=== PATIENT | male | born 1970 | race Caucasian/White ===

== ENCOUNTER 2016-12-14 11:30 | Inpatient (IN) | payer OTHER ==
[2016-12-14 12:08] VITALS: BMI 18.4
--- NOTE | 2016-12-14 16:53 | HP ---
CIWA Score - CIWA Score Nausea/Vomitin Muscle Tremors: 4-Moderate,w/Arms Extend Anxiety: 4-Mod. Anxious/Guarded Agitation: 4-Moderately Restless Paroxysmal Sweats: 2 Orientation: 3-Disoriented Date>2 days Tacttile Disturbances: 0-None Auditory Disturbances: 0-None Visual Disturbances: 0-None Headache: 1-Very Mild CIWA-Ar Total Score: 20 Admission ROS BHS - HPI Chief Complaint: WITHDRAWAL SX PATIENT STATES THAT DOING BETTER WITH VALIUM REGIMEN Allergies/Adverse Reactions: Allergies Allergy/AdvReac Type Severity Reaction Status Date / Time No Known Allergies Allergy Verified 12/14/16 15:56 History of Present Illness: 46 YEARS OLD MALE WITH LONG HISTORY OF ALCOHOL XANAX KLONOPIN DEPENDENCE, HAS COPD AND DEPRESSION IS ADMITTED TO DETOX Exam Limitations: No Limitations - Ebola screening Have you traveled outside of the country in the last 21 days: No Have you had contact with anyone from an Ebola affected area: No Have you been sick,other than usual withdrawal symptoms: No Do you have a fever: No - Review of Systems Constitutional: Chills, Loss of Appetite, Changes in sleep, Unintentional Wgt. Loss EENT: reports: No Symptoms Reported Respiratory: reports: No Symptoms reported Cardiac: reports: No Symptoms Reported GI: reports: Nausea, Poor Appetite, Poor Fluid Intake, Vomiting, Abdominal cramping : reports: No Symptoms Reported Musculoskeletal: reports: Back Pain Integumentary: reports: No Symptoms Reported Neuro: reports: Tremors Endocrine: reports: No Symptoms Reported Hematology: reports: No Symptoms Reported Psychiatric: reports: Judgement Intact, Anxious, Depressed Other Systems: Reviewed and Negative Patient History - Patient Medical History Hx Anemia: No Hx Asthma: No Hx Chronic Obstructive Pulmonary Disease (COPD): Yes Hx Cancer: No Hx Cardiac Disorders: No (HEART ATTACK 2012) Hx Congestive Heart Failure: No Hx Hypertension: No Hx Hypercholesterolemia: No Hx Pacemaker: No HX Cerebrovascular Accident: No Hx Seizures: No Hx Dementia: No Hx Diabetes: No Hx Gastrointestinal Disorders: No Hx Liver Disease: Yes Hx Genitourinary Disorders: No Hx Sexually Transmitted Disorders: No Hx Renal Disease (ESRD): No Hx Thyroid Disease: No Hx Human Immunodeficiency Virus (HIV): No Hx Hepatitis C: Yes Hx Depression: Yes Hx Suicide Attempt: No Hx Bipolar Disorder: No Hx Schizophrenia: No - Patient Surgical History Past Surgical History: Yes Hx Neurologic Surgery: No Hx Cataract Extraction: No Hx Cardiac Surgery: No Hx Lung Surgery: No Hx Breast Surgery: No Hx Breast Biopsy: No Hx Abdominal Surgery: No Hx Appendectomy: No Hx Cholecystectomy: No Hx Genitourinary Surgery: No Hx Orthopedic Surgery: No Other Surgical History: LITHOTRIPSY 2006 Anesthesia Reaction: No - PPD History Previous Implant?: Yes Documented Results: Negative w/proof Implanted On Prior [facility] Admission?: Yes Date: 05/19/16 Results: 0 mm PPD to be Administered?: No - Smoking Cessation Smoking history: Current every day smoker Have you smoked in the past 12 months: Yes Aproximately how many cigarettes per day: 20 Cigars Per Day: 0 Hx Chewing Tobacco Use: No Initiated information on smoking cessation: Yes 'Breaking Loose' booklet given: 12/14/16 - Substance & Tx. History Hx Alcohol Use: Yes Hx Substance Use: Yes Substance Use Type: Alcohol, Cocaine, Marijuana Hx Substance Use Treatment: Yes - Substances Abused Alcohol Route: Oral Frequency: 3-6 times per week Amount used: 1 pint vodka/6pk beer Age of first use: 13 Date of Last Use: 12/12/16 Benzodiazepine (Klonopin) Route: Oral Frequency: Daily Amount used: 4-6mg Age of first use: 36 Date of Last Use: 12/11/16 Cocaine Route: Smoking Frequency: Daily Amount used: 3-4 bags Age of first use: 17 Date of Last Use: 12/12/16 Marijuana/Hashish Route: Smoking Frequency: Daily Amount used: 1-2 joint Age of first use: 10 Date of Last Use: 12/13/16 k2 Route: Smoking Frequency: 1-2 times per week Amount used: 1-2 joints Age of first use: 46 Date of Last Use: 12/12/16 Family Disease History - Family Disease History Family Disease History: Heart Disease: Father (HTN,PR), Mother (HTN,AF), Other: Grandparent (CVA) Admission Physical Exam BHS - Vital Signs Vital Signs: Vital Signs - 24 hr 12/14/16 12:06 Temperature 97.5 F L Pulse Rate 64 Respiratory 18 Rate Blood Pressure 112/59 - Physical General Appearance: Yes: Appropriately Dressed, Moderate Distress, Thin, Tremorous, Irritable, Sweating, Anxious HEENTM: Yes: Hearing grossly Normal, Normal ENT Inspection, Normocephalic, Normal Voice Respiratory: Yes: Chest Non-Tender, No Respiratory Distress, No Accessory Muscle Use, Hyperresonant, Inspiration Neck: Yes: Supple, Trachea in good position Breast: Yes: Breasts Symetrical Cardiology: Yes: Regular Rhythm, S1, S2, Tachycardia Abdominal: Yes: Non Tender, Soft Genitourinary: Yes: Within Normal Limits Back: Yes: Normal Inspection Musculoskeletal: Yes: full range of Motion, Gait Steady, Back pain Extremities: Yes: Normal Range of Motion, Non-Tender, Tremors Neurological: Yes: Alert, Motor Strength 5/5, Normal Response, Depressed Affect Integumentary: Yes: Warm, Moist Lymphatic: Yes: Within Normal Limits - Diagnostic (1) Alcohol dependence with uncomplicated withdrawal Current Visit: Yes Status: Acute (2) Sedative, hypnotic or anxiolytic dependence with withdrawal, uncomplicated Current Visit: Yes Status: Acute (3) COPD (chronic obstructive pulmonary disease) Current Visit: Yes Status: Acute Qualifiers: COPD type: emphysema Emphysema type: panlobular Qualified Code(s ): J43.1 - Panlobular emphysema Comment: SYMBICORT (4) MDD (major depressive disorder) Current Visit: Yes Status: Suspected Qualifiers: Major depression recurrence: recurrent Active/Remission status: in partial remission Qualified Code(s): F33.41 - Major depressive disorder, recurrent, in partial remission (5) Hepatitis C antibody test positive Current Visit: Yes Status: Chronic (6) Methadone maintenance therapy patient Current Visit: Yes Status: Acute Comment: 90 MG VERIFICATION PENDING (7) Weight loss Current Visit: Yes Status: Acute (8) Vomiting Current Visit: Yes Status: Acute Qualifiers: Vomiting type: unspecified Vomiting Intractability: unspecified Nausea presence: with nausea Qualified Code(s): R11.2 - Nausea with vomiting, unspecified Comment: ALCOHOL KLONOPIN WITHDRAWAL RELATED (9) Chronic back pain Current Visit: Yes Status: Chronic Qualifiers: Back pain location: low back pain Back pain laterality: midline Sciatica presence: without sciatica Qualified Code(s): M54.5 - Low back pain; G89.29 - Other chronic pain Cleared for Admission S - Detox or Rehab [facility] Level of Care: Medically Managed Detox Regimen/Protocol: Valium [facility] Breath Alcohol Content Breath Alcohol Content: 0 Urine Drug Screen - Results Drug Screen Negative: No Urine Drug Screen Results: THC-Marijuana, LEXI-Cocaine, OPI-Opiates, MTD- Methadone, OXY-Oxycodone
[2016-12-14] MEDS ORDERED: diphenhydrAMINE HCL 50 MG CAPSULE PO PRN (17:01)
[2016-12-14] MEDS ORDERED: MAGNESIUM CITRATE 300 ML BOTTLE PO PRN (17:01)
[2016-12-14] MEDS ORDERED: MAGNESIUM HYDROX 2400MG/30ML ORAL SUSPENSION 30 ML CUP PO PRN (17:01)
[2016-12-14] MEDS ORDERED: P-EPHED 60MG/TRIPROLIDI 2.5MG TABLET PO PRN (17:01)
[2016-12-14] MEDS ORDERED: ACETAMINOPHEN 325 MG TABLET (FP) PO PRN (17:01)
[2016-12-14] MEDS ORDERED: MAG HYDROX/AL HYDROX/SIMETH 30 ML UNIT-DOSE CUP PO PRN (17:01)
[2016-12-14] MEDS ORDERED: NICOTINE POLACRILEX 4 MG GUM BC PRN (17:01)
[2016-12-14] MEDS ORDERED: LOPERAMIDE HCL 2 MG CAPSULE PO PRN (17:01)
[2016-12-14] MEDS ORDERED: MENTHOL/PHENOL 1 EACH UD MM PRN (17:01)
[2016-12-14] MEDS ORDERED: ALBUTEROL SO4 6.7 GM HFA INHALER IH PRN (17:03)
[2016-12-14] MEDS ORDERED: ONDANSETRON *ODT* 4 MG TABLET SL PRN (17:04)
[2016-12-14] MEDS ORDERED: NAPROXEN 500 MG TABLET (FP) PO PRN (17:05)
[2016-12-14] MEDS ORDERED: diazePAM 5 MG TABLET PO ONE (17:45)
[2016-12-14 19:53] LABS: URINE APPEARANCE CLEAR; URINE BILIRUBIN NEGATIVE (NEGATIVE); URINE BLOOD NEGATIVE (NEGATIVE); URINE COLOR YELLOW; URINE GLUCOSE (UA) NEGATIVE (NEGATIVE); URINE KETONE NEGATIVE (NEGATIVE); URINE LEUK ESTERASE NEGATIVE (NEGATIVE); URINE NITRITE NEGATIVE (NEGATIVE); URINE PROTEIN NEGATIVE (NEGATIVE); URINE UROBILINOGEN 2.0 E.U/dl E.U./dl (0.2-1.0)
[2016-12-14] MEDS: diazePAM 5 MG TABLET PO PRN (20:47)
[2016-12-14] MEDS: THIAMINE HCL 100 MG TABLET (FP) PO SCH (22:14)
[2016-12-14] MEDS: BUDESONIDE/FORMETEROL FUMARATE 80/4.5 mcg INHALER IH SCH (22:15)
[2016-12-14] MEDS: diazePAM 5 MG TABLET PO SCH (22:15)
[2016-12-15] MEDS: guaiFENesin/D-METHORPHAN HB 10 ML UNIT-DOSE CUPS PO PRN ×2 (00:05→23:40)
[2016-12-15] MEDS: diazePAM 5 MG TABLET PO SCH ×3 (05:11→22:52)
[2016-12-15] MEDS: CYCLOBENZAPRINE HCL 10 MG TABLET (FP) PO PRN (06:07)
[2016-12-15] MEDS: diazePAM 5 MG TABLET PO PRN ×2 (06:07→12:47)
[2016-12-15] MEDS ORDERED: METHADONE HCL 10 MG TABLET PO SCH (09:15)
[2016-12-15] MEDS ORDERED: METHADONE HCL 40 MG DISPERSABLE TABLET ONE (09:28)
[2016-12-15] MEDS ORDERED: METHADONE HCL 10 MG TABLET ONE (09:28)
--- NOTE | 2016-12-15 09:49 | CONSULT ---
[facility] Psychiatric Consult - Data Date of interview: 12/15/16 Admission source: [facility] Identifying data: This is 46 years old male with mo psychiatric hospitalization history intoxucated with : Cannabis, K2, Alcohol, Xanax, Cocaine and Nicotine, currently on Methadone 90mg/day Substance Abuse History: Smoking history: Current every day smoker. Have you smoked in the past 12 months: Yes. Aproximately how many cigarettes per day: 20. Cigars Per Day: 0. Hx Chewing Tobacco Use: No. Initiated information on smoking cessation: Yes. 'Breaking Loose' booklet given: 12/14/16. - Substance & Tx. History. Hx Alcohol Use: Yes. Hx Substance Use: Yes. Substance Use Type : Alcohol, Cocaine, Marijuana. Hx Substance Use Treatment: Yes. - Substances Abused. Alcohol. Route: Oral. Frequency: 3-6 times per week. Amount used : 1 pint vodka/6pk beer. Age of first use: 13. Date of Last Use: 12/12/16. * * Benzodiazepine (Klonopin). Route: Oral. Frequency: Daily. Amount used: 4- 6mg. Age of first use: 36. Date of Last Use: 12/11/16. Cocaine. Route: Smoking. Frequency: Daily. Amount used: 3-4 bags. Age of first use: 17. Date of Last Use: 12/12/16. Marijuana/Hashish. Route: Smoking. Frequency: Daily. Amount used: 1-2 joint. Age of first use: 10. Date of Last Use: . k2. Route: Smoking. Frequency: 1-2 times per week. Amount used: 1-2 joints. Age of first use: 46. Date of Last Use: 12/12/16 Medical History: COPD, Weight loss, LBP, HepC+, MMTP 90 per day, highest history - 130mg per day Psychiatric History: Patient reports history of PTSD, MDD, Reportsa recent psychiatric admission on 2016 at [facility], , reports taking prior to admission: Abilify 10mg poqd. Wellbutrin 100mg poqd. Celexa 20mg poqd. Ambien 5mg po qhs Physical/Sexual Abuse/Trauma History: Denies Additional Comment: Abilify 10mg poqd. Wellbutrin 100mg poqd. Celexa 20mg poqd. Ambien 5mg po qhs Mental Status Exam - Mental Status Exam Alert and Oriented to: Person Cognitive Function: Fair Patient Appearance: Unkempt Mood: Sad Affect: Mood Congruent Patient Behavior: Cooperative Speech Pattern: Appropriate Voice Loudness: Mildly Soft/Quiet Thought Process: Goal Oriented Thought Disorder: Being Controlled Hallucinations: Denies Suicidal Ideation: Denies Homicidal Ideation: Denies Insight/Judgement: Fair Sleep: Difficulty falling asleep Appetite: Weight loss Muscle strength/Tone: Normal Gait/Station: Shuffling Additional Comments: Abilify 10mg poqd. Wellbutrin 100mg poqd. Celexa 20mg poqd. Ambien 5mg po qhs Psychiatric Findings - Problem List ([place] 1, 2,3) (1) Alcohol dependence with uncomplicated withdrawal Current Visit: Yes Status: Acute (2) Methadone maintenance therapy patient Current Visit: Yes Status: Acute Comment: 90 MG VERIFICATION PENDING (3) Sedative, hypnotic or anxiolytic dependence with withdrawal, uncomplicated Current Visit: Yes Status: Acute (4) Weight loss Current Visit: Yes Status: Acute (5) MDD (major depressive disorder) Current Visit: Yes Status: Suspected Qualifiers: Major depression recurrence: recurrent Active/Remission status: in partial remission Qualified Code(s): F33.41 - Major depressive disorder, recurrent, in partial remission (6) Alcohol dependence Current Visit: No Status: Active (7) Opioid dependence Current Visit: No Status: Active (8) Sedative dependence Current Visit: No Status: Active (9) Cannabis dependence Current Visit: No Status: Acute (10) Cocaine dependence Current Visit: No Status: Acute Qualifiers: Substance use status: uncomplicated Qualified Code(s): F14.20 - Cocaine dependence, uncomplicated (11) Klonopin use disorder, mild, abuse Current Visit: No Status: Acute Comment: VALIUM DETOX (12) Nicotine dependence Current Visit: No Status: Acute (13) Opioid dependence on agonist therapy Current Visit: No Status: Acute (14) Post traumatic stress disorder (PTSD) Current Visit: No Status: Acute (15) Substance induced mood disorder Current Visit: No Status: Acute - Initial Treatment Plan Initial Treatment Plan: Abilify 10mg poqd. Wellbutrin 100mg poqd. Celexa 20mg poqd. Ambien 5mg po qhs
[2016-12-15 10:01] LABS: MCH 26.6 pg (25.7-33.7); MCHC 31.8 g/dl (32.0-35.9); MEAN CELL VOLUME 83.6 fl (80-96); MEAN PLT VOLUME 9.4 fl (7.5-11.1); PLATELET COUNT 194 K/MM3 (134-434); RDW 15.9 % (11.9-15.9); WHITE BLOOD COUNT 11.9 K/mm3 (4.0-10.0)
[2016-12-15 10:49] LABS: ALBUMIN 3.8 g/dl (3.4-5.0); ALK PHOS 107 U/L (45-117); ANION GAP 7 (8-16); BILIRUBIN,TOTAL 0.8 mg/dL (0.2-1.0); CALCIUM 8.6 mg/dL (8.5-10.1); CO2 27 mmol/L (21-32); CREATININE 0.7 mg/dL (0.7-1.3); GLUCOSE,RANDOM 98 mg/dL (74-106); SGOT/AST 39 U/L (15-37); SGPT/ALT 45 U/L (12-78); TOT PROT 6.7 g/dl (6.4-8.2)
--- NOTE | 2016-12-15 11:14 | PN ---
S CIWA - CIWA Score Nausea/Vomitin Muscle Tremors: 4-Moderate,w/Arms Extend Anxiety: 4-Mod. Anxious/Guarded Agitation: 4-Moderately Restless Paroxysmal Sweats: 3 Orientation: 0-Oriented Tacttile Disturbances: 1-Very Mild Itch/Numbness Auditory Disturbances: 0-None Visual Disturbances: 0-None Headache: 0-None Present CIWA-Ar Total Score: 18 BHS Progress Note (SOAP) Subjective: Anxiety,tremors,sweating,interrupted sleep,restless Objective: 12/15/16 11:12 Vital Signs - 8 hr 12/15/16 12/15/16 12/15/16 03:48 06:43 09:43 Temperature 96.2 F L 96.4 F L Pulse Rate 64 81 Respiratory 18 16 20 Rate Blood Pressure 112/71 108/69 Laboratory Tests 12/14/16 12/15/16 19:00 06:10 WBC 11.9 H D RBC 3.96 L Hgb 10.5 L Hct 33.1 L MCV 83.6 MCHC 31.8 L RDW 15.9 D Plt Count 194 MPV 9.4 D Urine Color Yellow Urine Appearance Clear Urine pH 6.0 Ur Specific [place] 1.021 Urine Protein Negative Urine Glucose (UA) Negative Urine Ketones Negative Urine Blood Negative Urine Nitrite Negative Urine Bilirubin Negative Urine Urobilinogen 2.0 e.u/dl Ur Leukocyte Esterase Negative labs noted Assessment: 12/15/16 11:14 Withdrawal sx. Plan: Continue detox
[2016-12-15] MEDS: LIDOCAINE 5% TOPICAL PATCH TP SCH (11:30)
[2016-12-15] MEDS ORDERED: PNEUMOCOCCAL 23 VACCINE 0.5 ML VIAL IM ONE (12:00)
[2016-12-15] MEDS ORDERED: INFLUENZA VACCINE 45 MCG/0.5 ML (MDV 16-17) IM ONE (12:00)
[2016-12-15] MEDS ORDERED: PNEUMOC 13-VAL CONJ-DIP CRM/PF 0.5 ML DISP.SYRIN IM ONE (12:00)
[2016-12-15 12:12] LABS: HIV 1 & 2 AB NEGATIVE; HIV 1 AGp24 NEGATIVE
[2016-12-15] MEDS: METHADONE 80 MG, METHADONE 10 MG PO SCH (12:39)
--- NOTE | 2016-12-15 15:07 | EKG ---
Test Reason : Blood Pressure : / mmHG Vent. Rate : 062 BPM Atrial Rate : 062 BPM P-R Int : 158 ms QRS Dur : 094 ms QT Int : 410 ms P-R-T Axes : 068 085 072 degrees QTc Int : 416 ms NORMAL SINUS RHYTHM NORMAL ECG NO PREVIOUS ECGS AVAILABLE Confirmed by ANAID WHEELER MD ([id number]) on 12/15/2016 3:07:10 PM Referred By: Confirmed By:ANAID WHEELER MD
[2016-12-15] MEDS: NICOTINE 21 MG/24 HOURS TOPICAL PATCH TD SCH (15:15)
[2016-12-15] MEDS: PRENATAL VITAMINS W/ FOLIC ACID TABLET (FP) PO SCH (15:16)
[2016-12-15] MEDS: buPROPion HCL 100 MG TABLET PO SCH (15:16)
[2016-12-15] MEDS: BUDESONIDE/FORMETEROL FUMARATE 80/4.5 mcg INHALER IH SCH ×2 (15:16→22:52)
[2016-12-15] MEDS: CITALOPRAM HYDROBROMIDE 20 MG TABLET (FP) PO SCH (15:19)
[2016-12-15] MEDS: ARIPiprazole 10 MG TABLET PO SCH (15:19)
[2016-12-15] MEDS: THIAMINE HCL 100 MG TABLET (FP) PO SCH (22:52)
[2016-12-15] MEDS: ZOLPIDEM TARTRATE 5 MG TABLET PO PRN (22:53)
[2016-12-16] MEDS ORDERED: METHADONE HCL 40 MG DISPERSABLE TABLET ONE (03:40)
[2016-12-16] MEDS ORDERED: METHADONE HCL 10 MG TABLET ONE (03:40)
[2016-12-16] MEDS: CYCLOBENZAPRINE HCL 10 MG TABLET (FP) PO PRN (06:00)
[2016-12-16] MEDS: METHADONE 80 MG, METHADONE 10 MG PO SCH (06:00)
[2016-12-16] MEDS: CITALOPRAM HYDROBROMIDE 20 MG TABLET (FP) PO SCH (10:59)
[2016-12-16] MEDS: diazePAM 5 MG TABLET PO SCH ×2 (10:59→22:31)
[2016-12-16] MEDS: PRENATAL VITAMINS W/ FOLIC ACID TABLET (FP) PO SCH (10:59)
[2016-12-16] MEDS: BUDESONIDE/FORMETEROL FUMARATE 80/4.5 mcg INHALER IH SCH ×2 (10:59→23:00)
[2016-12-16] MEDS: ARIPiprazole 10 MG TABLET PO SCH (11:00)
[2016-12-16] MEDS: LIDOCAINE 5% TOPICAL PATCH TP SCH (11:01)
[2016-12-16] MEDS: NICOTINE 21 MG/24 HOURS TOPICAL PATCH TD SCH (11:02)
[2016-12-16] MEDS: buPROPion HCL 100 MG TABLET PO SCH (11:03)
--- NOTE | 2016-12-16 11:18 | PN ---
[facility] CIWA - CIWA Score Nausea/Vomitin-No Nausea/No Vomiting Muscle Tremors: 3 Anxiety: 3 Agitation: 4-Moderately Restless Paroxysmal Sweats: 3 Orientation: 0-Oriented Tacttile Disturbances: 0-None Auditory Disturbances: 0-None Visual Disturbances: 0-None Headache: 0-None Present CIWA-Ar Total Score: 13 S Progress Note (SOAP) Subjective: Anxiety,tremors,sweating,interrupted sleep,restless Objective: 12/16/16 11:16 Vital Signs - 8 hr 12/16/16 12/16/16 12/16/16 03:30 06:34 10:39 Temperature 96.5 F L 95.5 F L Pulse Rate 68 62 Respiratory 18 18 16 Rate Blood Pressure 104/69 104/75 Laboratory Last Values WBC 11.9 K/mm3 (4.0-10.0) H D 12/15/16 06:10 RBC 3.96 M/mm3 (4.00-5.60) L 12/15/16 06:10 Hgb 10.5 GM/dL (11.7-16.9) L 12/15/16 06:10 Hct 33.1 % (35.4-49) L 12/15/16 06:10 MCV 83.6 fl (80-96) 12/15/16 06:10 MCHC 31.8 g/dl (32.0-35.9) L 12/15/16 06:10 RDW 15.9 % (11.9-15.9) D 12/15/16 06:10 Plt Count 194 K/MM3 (134-434) 12/15/16 06:10 MPV 9.4 fl (7.5-11.1) D 12/15/16 06:10 Sodium 138 mmol/L (136-145) 12/15/16 06:10 Potassium 4.2 mmol/L (3.5-5.1) 12/15/16 06:10 Chloride 104 mmol/L (98-107) 12/15/16 06:10 Carbon Dioxide 27 mmol/L (21-32) 12/15/16 06:10 Anion Gap 7 (8-16) L 12/15/16 06:10 BUN 14 mg/dL (7-18) 12/15/16 06:10 Creatinine 0.7 mg/dL (0.7-1.3) 12/15/16 06:10 Creat Clearance w eGFR > 60 (>60) 12/15/16 06:10 Random Glucose 98 mg/dL (74-106) 12/15/16 06:10 Calcium 8.6 mg/dL (8.5-10.1) 12/15/16 06:10 Total Bilirubin 0.8 mg/dL (0.2-1.0) D 12/15/16 06:10 AST 39 U/L (15-37) H D 12/15/16 06:10 ALT 45 U/L (12-78) D 12/15/16 06:10 Alkaline Phosphatase 107 U/L (45-117) 12/15/16 06:10 Total Protein 6.7 g/dl (6.4-8.2) 12/15/16 06:10 Albumin 3.8 g/dl (3.4-5.0) 12/15/16 06:10 Urine Color Yellow 12/14/16 19:00 Urine Appearance Clear 12/14/16 19:00 Urine pH 6.0 (5.0-8.0) 12/14/16 19:00 Ur Specific [place] 1.021 (1.001-1.035) 12/14/16 19:00 Urine Protein Negative (NEGATIVE) 12/14/16 19:00 Urine Glucose (UA) Negative (NEGATIVE) 12/14/16 19:00 Urine Ketones Negative (NEGATIVE) 12/14/16 19:00 Urine Blood Negative (NEGATIVE) 12/14/16 19:00 Urine Nitrite Negative (NEGATIVE) 12/14/16 19:00 Urine Bilirubin Negative (NEGATIVE) 12/14/16 19:00 Urine Urobilinogen 2.0 e.u/dl E.U./dl (0.2-1.0) 12/14/16 19:00 Ur Leukocyte Esterase Negative (NEGATIVE) 12/14/16 19:00 RPR Titer Nonreactive (NONREACTIVE) 12/15/16 06:10 HIV 1&2 Antibody Screen Negative 12/15/16 06:10 HIV P24 Antigen Negative 12/15/16 06:10 labs noted Assessment: 12/16/16 11:17 Withdrawal sx. Plan: Continue detox
[2016-12-16] MEDS: diazePAM 5 MG TABLET PO PRN (17:11)
[2016-12-16] MEDS: THIAMINE HCL 100 MG TABLET (FP) PO SCH (22:31)
[2016-12-16] MEDS: ZOLPIDEM TARTRATE 5 MG TABLET PO PRN (22:33)
[2016-12-17] MEDS ORDERED: METHADONE HCL 10 MG TABLET ONE (05:33)
[2016-12-17] MEDS ORDERED: METHADONE HCL 40 MG DISPERSABLE TABLET ONE (05:34)
[2016-12-17] MEDS: METHADONE 80 MG, METHADONE 10 MG PO SCH (05:44)
[2016-12-17] MEDS: diazePAM 5 MG TABLET PO PRN ×2 (08:46→14:46)
[2016-12-17] MEDS: BUDESONIDE/FORMETEROL FUMARATE 80/4.5 mcg INHALER IH SCH ×2 (10:39→22:35)
[2016-12-17] MEDS: PRENATAL VITAMINS W/ FOLIC ACID TABLET (FP) PO SCH (10:39)
[2016-12-17] MEDS: CITALOPRAM HYDROBROMIDE 20 MG TABLET (FP) PO SCH (10:40)
[2016-12-17] MEDS: diazePAM 5 MG TABLET PO SCH ×2 (10:40→22:35)
[2016-12-17] MEDS: ARIPiprazole 10 MG TABLET PO SCH (10:40)
[2016-12-17] MEDS: buPROPion HCL 100 MG TABLET PO SCH (10:40)
[2016-12-17] MEDS: LIDOCAINE 5% TOPICAL PATCH TP SCH (10:41)
[2016-12-17] MEDS: NICOTINE 21 MG/24 HOURS TOPICAL PATCH TD SCH (10:41)
--- NOTE | 2016-12-17 12:00 | PN ---
S Progress Note (SOAP) Subjective: Restlessness, interrupted sleep, anxiety, diarrhea, Objective: 12/17/16 12:00 Vital Signs Temperature 98.3 F 12/17/16 09:53 Pulse Rate 82 12/17/16 09:53 Respiratory Rate 18 12/17/16 09:53 Blood Pressure 117/68 12/17/16 09:53 O2 Sat by Pulse Oximetry (%) Laboratory Last Values WBC 11.9 K/mm3 (4.0-10.0) H D 12/15/16 06:10 RBC 3.96 M/mm3 (4.00-5.60) L 12/15/16 06:10 Hgb 10.5 GM/dL (11.7-16.9) L 12/15/16 06:10 Hct 33.1 % (35.4-49) L 12/15/16 06:10 MCV 83.6 fl (80-96) 12/15/16 06:10 MCHC 31.8 g/dl (32.0-35.9) L 12/15/16 06:10 RDW 15.9 % (11.9-15.9) D 12/15/16 06:10 Plt Count 194 K/MM3 (134-434) 12/15/16 06:10 MPV 9.4 fl (7.5-11.1) D 12/15/16 06:10 Sodium 138 mmol/L (136-145) 12/15/16 06:10 Potassium 4.2 mmol/L (3.5-5.1) 12/15/16 06:10 Chloride 104 mmol/L (98-107) 12/15/16 06:10 Carbon Dioxide 27 mmol/L (21-32) 12/15/16 06:10 Anion Gap 7 (8-16) L 12/15/16 06:10 BUN 14 mg/dL (7-18) 12/15/16 06:10 Creatinine 0.7 mg/dL (0.7-1.3) 12/15/16 06:10 Creat Clearance w eGFR > 60 (>60) 12/15/16 06:10 Random Glucose 98 mg/dL (74-106) 12/15/16 06:10 Calcium 8.6 mg/dL (8.5-10.1) 12/15/16 06:10 Total Bilirubin 0.8 mg/dL (0.2-1.0) D 12/15/16 06:10 AST 39 U/L (15-37) H D 12/15/16 06:10 ALT 45 U/L (12-78) D 12/15/16 06:10 Alkaline Phosphatase 107 U/L (45-117) 12/15/16 06:10 Total Protein 6.7 g/dl (6.4-8.2) 12/15/16 06:10 Albumin 3.8 g/dl (3.4-5.0) 12/15/16 06:10 Urine Color Yellow 12/14/16 19:00 Urine Appearance Clear 12/14/16 19:00 Urine pH 6.0 (5.0-8.0) 12/14/16 19:00 Ur Specific [place] 1.021 (1.001-1.035) 12/14/16 19:00 Urine Protein Negative (NEGATIVE) 12/14/16 19:00 Urine Glucose (UA) Negative (NEGATIVE) 12/14/16 19:00 Urine Ketones Negative (NEGATIVE) 12/14/16 19:00 Urine Blood Negative (NEGATIVE) 12/14/16 19:00 Urine Nitrite Negative (NEGATIVE) 12/14/16 19:00 Urine Bilirubin Negative (NEGATIVE) 12/14/16 19:00 Urine Urobilinogen 2.0 e.u/dl E.U./dl (0.2-1.0) 12/14/16 19:00 Ur Leukocyte Esterase Negative (NEGATIVE) 12/14/16 19:00 RPR Titer Nonreactive (NONREACTIVE) 12/15/16 06:10 HIV 1&2 Antibody Screen Negative 12/15/16 06:10 HIV P24 Antigen Negative 12/15/16 06:10 labs noted Assessment: withdrawal symptoms Plan: Encouraged patient to utilize prns Continue Detox
[2016-12-17] MEDS ORDERED: hydrOXYzine PAMOATE 50 MG CAPSULE (FP) PO PRN (18:12)
[2016-12-17] MEDS: THIAMINE HCL 100 MG TABLET (FP) PO SCH (22:35)
[2016-12-17] MEDS: ZOLPIDEM TARTRATE 5 MG TABLET PO PRN (22:35)
[2016-12-18] MEDS ORDERED: METHADONE HCL 40 MG DISPERSABLE TABLET ONE (02:32)
[2016-12-18] MEDS ORDERED: METHADONE HCL 10 MG TABLET ONE (02:32)
[2016-12-18] MEDS: METHADONE 80 MG, METHADONE 10 MG PO SCH (06:04)
[2016-12-18] MEDS: CYCLOBENZAPRINE HCL 10 MG TABLET (FP) PO PRN (06:04)
[2016-12-18] MEDS: buPROPion HCL 100 MG TABLET PO SCH (09:15)
[2016-12-18] MEDS: CITALOPRAM HYDROBROMIDE 20 MG TABLET (FP) PO SCH (09:15)
[2016-12-18] MEDS: NICOTINE 21 MG/24 HOURS TOPICAL PATCH TD SCH (09:15)
[2016-12-18] MEDS: BUDESONIDE/FORMETEROL FUMARATE 80/4.5 mcg INHALER IH SCH (09:15)
[2016-12-18] MEDS: PRENATAL VITAMINS W/ FOLIC ACID TABLET (FP) PO SCH (09:15)
[2016-12-18] MEDS: ARIPiprazole 10 MG TABLET PO SCH (09:16)
[2016-12-18] MEDS: LIDOCAINE 5% TOPICAL PATCH TP SCH (09:17)
[2016-12-18] MEDS ORDERED: diazePAM 5 MG TABLET PO SCH (10:00)
[2016-12-18 10:56] VITALS: TEMP 98.8
[2016-12-18 13:26] VITALS: BP 109/70; PULSE 88
--- NOTE | 2016-12-18 16:24 | DS ---
[facility] Detox Discharge Summary Admission Date: 12/14/16 Discharge Date: 12/18/16 - History Present History: Alcohol Dependence, Cannabis Dependence, Cocaine Dependence, Sedative Dependence Pertinent Past History: COPD DC Hepatitis C - Physical Exam Results Vital Signs: Vital Signs Temperature 98.8 F 12/18/16 10:55 Pulse Rate 88 12/18/16 13:26 Respiratory Rate 18 12/18/16 13:26 Blood Pressure 109/70 12/18/16 13:26 O2 Sat by Pulse Oximetry (%) Pertinent Admission Physical Exam Findings: Withdrawal symptoms Laboratory Tests 12/14/16 12/15/16 12/15/16 19:00 06:10 06:10 WBC 11.9 H D RBC 3.96 L Hgb 10.5 L Hct 33.1 L MCV 83.6 MCHC 31.8 L RDW 15.9 D Plt Count 194 MPV 9.4 D Sodium Potassium Chloride Carbon Dioxide Anion Gap BUN Creatinine Creat Clearance w eGFR Random Glucose Calcium Total Bilirubin AST ALT Alkaline Phosphatase Total Protein Albumin Urine Color Yellow Urine Appearance Clear Urine pH 6.0 Ur Specific [place] 1.021 Urine Protein Negative Urine Glucose (UA) Negative Urine Ketones Negative Urine Blood Negative Urine Nitrite Negative Urine Bilirubin Negative Urine Urobilinogen 2.0 e.u/dl Ur Leukocyte Esterase Negative RPR Titer HIV 1&2 Antibody Screen Negative HIV P24 Antigen Negative 12/15/16 12/15/16 06:10 06:10 WBC RBC Hgb Hct MCV MCHC RDW Plt Count MPV Sodium 138 Potassium 4.2 Chloride 104 Carbon Dioxide 27 Anion Gap 7 L BUN 14 Creatinine 0.7 Creat Clearance w eGFR > 60 Random Glucose 98 Calcium 8.6 Total Bilirubin 0.8 D AST 39 H D ALT 45 D Alkaline Phosphatase 107 Total Protein 6.7 Albumin 3.8 Urine Color Urine Appearance Urine pH Ur Specific [place] Urine Protein Urine Glucose (UA) Urine Ketones Urine Blood Urine Nitrite Urine Bilirubin Urine Urobilinogen Ur Leukocyte Esterase RPR Titer Nonreactive HIV 1&2 Antibody Screen HIV P24 Antigen Labs noted - Treatment Hospital Course: Detox Protocol Followed, Detoxed Safely, Responded well, Discharged Condition Good - Medication Discharge Medications: Ambulatory Orders Albuterol Sulfate Inhaler - [Ventolin Hfa Inhaler -] 2 inh PO Q4H PRN 12/14/16 Naproxen [Naprosyn -] 500 mg PO BID 12/14/16 Zolpidem Tartrate [Ambien] 5 mg PO HS PRN 12/14/16 Aripiprazole [Abilify -] 10 mg PO DAILY #30 tablet 12/15/16 Bupropion HCl [Wellbutrin -] 100 mg PO DAILY #30 tablet 12/15/16 Citalopram Hydrobromide [Celexa -] 20 mg PO DAILY #30 tablet 12/15/16 SYMBICORT 80/4.5mcg - 2 inhaler IH Q4H PRN 12/18/16 - Diagnosis (1) Alcohol dependence with uncomplicated withdrawal Status: Acute (2) COPD (chronic obstructive pulmonary disease) Status: Chronic Qualifiers: COPD type: emphysema Emphysema type: panlobular Qualified Code(s ): J43.1 - Panlobular emphysema (3) Cannabis dependence Status: Chronic (4) Cocaine dependence Status: Chronic Qualifiers: Substance use status: uncomplicated Qualified Code(s): F14.20 - Cocaine dependence, uncomplicated (5) Sedative, hypnotic or anxiolytic dependence with withdrawal, uncomplicated Status: Acute (6) Hepatitis C antibody test positive Status: Chronic (7) Myocardial infarct, old Status: Chronic (8) Nicotine dependence Status: Chronic - AMA Did Patient Leave Against Medical Advice: No
== END 2016-12-18 12:47 | disposition other institution (70) | DRG 773 ==
LOC: YASAS 11:30 → Y3N 17:39
PROVIDERS: ADMIT Internal Medicine; ATTEND Internal Medicine
PROC: HZ2ZZZZ Detoxification Services for Substance Abuse Treatment (ICD-10-PCS; principal; 2016-12-18)
DX: F11.20 Opioid dependence, uncomplicated (principal); F13.230 Sedative, hypnotic or anxiolytic dependence with withdrawal, uncomplicated; F10.230 Alcohol dependence with withdrawal, uncomplicated; F14.20 Cocaine dependence, uncomplicated; F12.20 Cannabis dependence, uncomplicated; F17.210 Nicotine dependence, cigarettes, uncomplicated; F33.41 Major depressive disorder, recurrent, in partial remission; F43.10 Post-traumatic stress disorder, unspecified; J43.1 Panlobular emphysema; B18.2 Chronic viral hepatitis C; M54.5 Low back pain; R63.4 Abnormal weight loss; Z68.1 Body mass index [BMI] 19.9 or less, adult; I25.2 Old myocardial infarction
CPT/HCPCS: 36415; 80053; 81003; 85027; 86593; 87389; 90732; 93005; 93010; G0009

== ENCOUNTER 2016-12-18 13:25 | Inpatient (IN) | payer OTHER ==
[2016-12-18 13:49] VITALS: BMI 19.6
--- NOTE | 2016-12-18 13:57 | HP ---
[facility] Rehab Assess/Revision - Admission History Ad[facility] to Rehab [facility] Date of Admission to Rehab: 12/18/16 - Vital signs Vital Signs: Vital Signs Period Temp Pulse Resp BP Sys/Souza Pulse Ox Last 24 Hr 97.3 F-97.3 F 84-84 18-18 135-135/76-76 - Findings Detox History & Physical reviewed: Yes Concur with findings: Yes
[2016-12-18] MEDS ORDERED: P-EPHED 60MG/TRIPROLIDI 2.5MG TABLET PO PRN (15:09)
[2016-12-18] MEDS ORDERED: IBUPROFEN 400 MG TABLET (FP) PO PRN (15:09)
[2016-12-18] MEDS ORDERED: guaiFENesin/D-METHORPHAN HB 10 ML UNIT-DOSE CUPS PO PRN (15:09)
[2016-12-18] MEDS ORDERED: MAGNESIUM CITRATE 300 ML BOTTLE PO PRN (15:09)
[2016-12-18] MEDS ORDERED: ACETAMINOPHEN 325 MG TABLET (FP) PO PRN (15:09)
[2016-12-18] MEDS ORDERED: MAG HYDROX/AL HYDROX/SIMETH 30 ML UNIT-DOSE CUP PO PRN (15:09)
[2016-12-18] MEDS ORDERED: MENTHOL/PHENOL 1 EACH UD MM PRN (15:09)
[2016-12-18] MEDS ORDERED: LOPERAMIDE HCL 2 MG CAPSULE PO PRN (15:09)
[2016-12-18] MEDS ORDERED: MAGNESIUM HYDROX 2400MG/30ML ORAL SUSPENSION 30 ML CUP PO PRN (15:09)
[2016-12-18] MEDS ORDERED: NICOTINE POLACRILEX 2 MG GUM BUC PRN (15:09)
[2016-12-18] MEDS: BUDESONIDE/FORMETEROL FUMARATE 80/4.5 mcg INHALER IH SCH (21:12)
[2016-12-18] MEDS: THIAMINE HCL 100 MG TABLET (FP) PO SCH (21:13)
[2016-12-18] MEDS: diphenhydrAMINE HCL 50 MG CAPSULE PO PRN (21:13)
[2016-12-19] MEDS ORDERED: METHADONE HCL 10 MG TABLET ONE (04:15)
[2016-12-19] MEDS ORDERED: METHADONE HCL 40 MG DISPERSABLE TABLET ONE (04:16)
[2016-12-19] MEDS ORDERED: METHADONE HCL 10 MG TABLET PO SCH (06:00)
[2016-12-19] MEDS: METHADONE 80 MG, METHADONE 10 MG PO SCH (06:20)
[2016-12-19] MEDS: buPROPion HCL 100 MG TABLET PO SCH (10:34)
[2016-12-19] MEDS: PRENATAL VITAMINS W/ FOLIC ACID TABLET (FP) PO SCH (10:34)
[2016-12-19] MEDS: ARIPiprazole 10 MG TABLET PO SCH (10:34)
[2016-12-19] MEDS: CITALOPRAM HYDROBROMIDE 20 MG TABLET (FP) PO SCH (10:34)
[2016-12-19] MEDS: NICOTINE 21 MG/24 HOURS TOPICAL PATCH TD SCH (10:35)
[2016-12-19] MEDS: BUDESONIDE/FORMETEROL FUMARATE 80/4.5 mcg INHALER IH SCH ×2 (10:36→21:55)
[2016-12-19] MEDS: ONDANSETRON *ODT* 4 MG TABLET SL PRN ×2 (13:00→21:54)
[2016-12-19] MEDS: diphenhydrAMINE HCL 50 MG CAPSULE PO PRN (21:54)
[2016-12-19] MEDS: THIAMINE HCL 100 MG TABLET (FP) PO SCH (21:54)
[2016-12-20] MEDS ORDERED: METHADONE HCL 10 MG TABLET ONE (04:43)
[2016-12-20] MEDS ORDERED: METHADONE HCL 40 MG DISPERSABLE TABLET ONE (04:43)
[2016-12-20] MEDS: METHADONE 80 MG, METHADONE 10 MG PO SCH (06:32)
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
[2016-12-20] MEDS: ONDANSETRON *ODT* 4 MG TABLET SL PRN (09:28)
[2016-12-20] MEDS: PRENATAL VITAMINS W/ FOLIC ACID TABLET (FP) PO SCH (10:30)
[2016-12-20] MEDS: CITALOPRAM HYDROBROMIDE 20 MG TABLET (FP) PO SCH (10:30)
[2016-12-20] MEDS: NICOTINE 21 MG/24 HOURS TOPICAL PATCH TD SCH (10:30)
[2016-12-20] MEDS: ARIPiprazole 10 MG TABLET PO SCH (10:30)
[2016-12-20] MEDS: buPROPion HCL 100 MG TABLET PO SCH (10:30)
[2016-12-20] MEDS: BUDESONIDE/FORMETEROL FUMARATE 80/4.5 mcg INHALER IH SCH ×2 (10:30→21:54)
[2016-12-20] MEDS: hydrOXYzine PAMOATE 50 MG CAPSULE (FP) PO PRN (21:55)
[2016-12-20] MEDS: THIAMINE HCL 100 MG TABLET (FP) PO SCH (21:55)
[2016-12-21] MEDS ORDERED: METHADONE HCL 10 MG TABLET ONE (04:20)
[2016-12-21] MEDS ORDERED: METHADONE HCL 40 MG DISPERSABLE TABLET ONE (04:22)
[2016-12-21] MEDS: METHADONE 80 MG, METHADONE 10 MG PO SCH (06:42)
[2016-12-21] MEDS: BUDESONIDE/FORMETEROL FUMARATE 80/4.5 mcg INHALER IH SCH ×2 (10:20→22:02)
[2016-12-21] MEDS: buPROPion HCL 100 MG TABLET PO SCH (10:20)
[2016-12-21] MEDS: ARIPiprazole 10 MG TABLET PO SCH (10:20)
[2016-12-21] MEDS: PRENATAL VITAMINS W/ FOLIC ACID TABLET (FP) PO SCH (10:20)
[2016-12-21] MEDS: CITALOPRAM HYDROBROMIDE 20 MG TABLET (FP) PO SCH (10:20)
[2016-12-21] MEDS: NICOTINE 21 MG/24 HOURS TOPICAL PATCH TD SCH (10:20)
[2016-12-21] MEDS: hydrOXYzine PAMOATE 50 MG CAPSULE (FP) PO PRN (16:00)
[2016-12-21] MEDS: diphenhydrAMINE HCL 50 MG CAPSULE PO PRN (22:02)
[2016-12-21] MEDS: THIAMINE HCL 100 MG TABLET (FP) PO SCH (22:02)
[2016-12-22] MEDS ORDERED: METHADONE HCL 40 MG DISPERSABLE TABLET ONE (05:03)
[2016-12-22] MEDS ORDERED: METHADONE HCL 10 MG TABLET ONE (05:03)
[2016-12-22] MEDS: METHADONE 80 MG, METHADONE 10 MG PO SCH (06:38)
[2016-12-22] MEDS: ARIPiprazole 10 MG TABLET PO SCH (10:15)
[2016-12-22] MEDS: buPROPion HCL 100 MG TABLET PO SCH (10:15)
[2016-12-22] MEDS: BUDESONIDE/FORMETEROL FUMARATE 80/4.5 mcg INHALER IH SCH ×2 (10:15→22:34)
[2016-12-22] MEDS: NICOTINE 21 MG/24 HOURS TOPICAL PATCH TD SCH (10:15)
[2016-12-22] MEDS: PRENATAL VITAMINS W/ FOLIC ACID TABLET (FP) PO SCH (10:15)
[2016-12-22] MEDS: CITALOPRAM HYDROBROMIDE 20 MG TABLET (FP) PO SCH (10:15)
[2016-12-22] MEDS: CYCLOBENZAPRINE HCL 10 MG TABLET (FP) PO PRN (13:26)
[2016-12-22] MEDS: THIAMINE HCL 100 MG TABLET (FP) PO SCH (21:49)
[2016-12-22] MEDS: diphenhydrAMINE HCL 50 MG CAPSULE PO PRN (21:49)
[2016-12-23] MEDS ORDERED: METHADONE HCL 40 MG DISPERSABLE TABLET ONE (04:21)
[2016-12-23] MEDS ORDERED: METHADONE HCL 10 MG TABLET ONE (04:21)
[2016-12-23] MEDS: METHADONE 80 MG, METHADONE 10 MG PO SCH (06:28)
[2016-12-23] MEDS: NICOTINE 21 MG/24 HOURS TOPICAL PATCH TD SCH (10:32)
[2016-12-23] MEDS: PRENATAL VITAMINS W/ FOLIC ACID TABLET (FP) PO SCH (10:33)
[2016-12-23] MEDS: buPROPion HCL 100 MG TABLET PO SCH (10:33)
[2016-12-23] MEDS: ARIPiprazole 10 MG TABLET PO SCH (10:33)
[2016-12-23] MEDS: BUDESONIDE/FORMETEROL FUMARATE 80/4.5 mcg INHALER IH SCH ×2 (10:34→22:36)
[2016-12-23] MEDS: LIDOCAINE 5% TOPICAL PATCH TP SCH (10:34)
[2016-12-23] MEDS: CITALOPRAM HYDROBROMIDE 20 MG TABLET (FP) PO SCH (10:34)
[2016-12-23] MEDS: diphenhydrAMINE HCL 50 MG CAPSULE PO PRN (22:35)
[2016-12-23] MEDS: THIAMINE HCL 100 MG TABLET (FP) PO SCH (22:35)
[2016-12-24] MEDS ORDERED: METHADONE HCL 40 MG DISPERSABLE TABLET ONE (04:10)
[2016-12-24] MEDS ORDERED: METHADONE HCL 10 MG TABLET ONE (04:10)
[2016-12-24] MEDS: METHADONE 80 MG, METHADONE 10 MG PO SCH (06:22)
[2016-12-24] MEDS ORDERED: PT OWN MED DRAWER 7, Y5N ONE (09:19)
[2016-12-24] MEDS: PRENATAL VITAMINS W/ FOLIC ACID TABLET (FP) PO SCH (10:25)
[2016-12-24] MEDS: CITALOPRAM HYDROBROMIDE 20 MG TABLET (FP) PO SCH (10:25)
[2016-12-24] MEDS: LIDOCAINE 5% TOPICAL PATCH TP SCH (10:25)
[2016-12-24] MEDS: ARIPiprazole 10 MG TABLET PO SCH (10:25)
[2016-12-24] MEDS: NICOTINE 21 MG/24 HOURS TOPICAL PATCH TD SCH (10:25)
[2016-12-24] MEDS: BUDESONIDE/FORMETEROL FUMARATE 80/4.5 mcg INHALER IH SCH ×2 (10:25→22:06)
[2016-12-24] MEDS: buPROPion HCL 100 MG TABLET PO SCH (10:25)
[2016-12-24] MEDS: hydrOXYzine PAMOATE 50 MG CAPSULE (FP) PO PRN (22:04)
[2016-12-24] MEDS: THIAMINE HCL 100 MG TABLET (FP) PO SCH (22:06)
[2016-12-25] MEDS ORDERED: METHADONE HCL 40 MG DISPERSABLE TABLET ONE (04:10)
[2016-12-25] MEDS ORDERED: METHADONE HCL 10 MG TABLET ONE (04:10)
[2016-12-25] MEDS: METHADONE 80 MG, METHADONE 10 MG PO SCH (05:51)
[2016-12-25] MEDS: PRENATAL VITAMINS W/ FOLIC ACID TABLET (FP) PO SCH (10:20)
[2016-12-25] MEDS: NICOTINE 21 MG/24 HOURS TOPICAL PATCH TD SCH (10:20)
[2016-12-25] MEDS: ARIPiprazole 10 MG TABLET PO SCH (10:20)
[2016-12-25] MEDS: LIDOCAINE 5% TOPICAL PATCH TP SCH (10:20)
[2016-12-25] MEDS: CITALOPRAM HYDROBROMIDE 20 MG TABLET (FP) PO SCH (10:20)
[2016-12-25] MEDS: buPROPion HCL 100 MG TABLET PO SCH (10:20)
[2016-12-25] MEDS ORDERED: PT OWN MED DRAWER 7, Y5N ONE (10:22)
[2016-12-25] MEDS: CYCLOBENZAPRINE HCL 10 MG TABLET (FP) PO PRN (10:22)
[2016-12-25] MEDS: BUDESONIDE/FORMETEROL FUMARATE 80/4.5 mcg INHALER IH SCH ×2 (10:22→21:42)
[2016-12-25] MEDS: THIAMINE HCL 100 MG TABLET (FP) PO SCH (21:41)
[2016-12-25] MEDS: hydrOXYzine PAMOATE 50 MG CAPSULE (FP) PO PRN (21:41)
[2016-12-26] MEDS ORDERED: METHADONE HCL 10 MG TABLET ONE (05:38)
[2016-12-26] MEDS ORDERED: METHADONE HCL 40 MG DISPERSABLE TABLET ONE (05:38)
[2016-12-26] MEDS: METHADONE 80 MG, METHADONE 10 MG PO SCH (06:12)
[2016-12-26] MEDS: ARIPiprazole 10 MG TABLET PO SCH (10:27)
[2016-12-26] MEDS: buPROPion HCL 100 MG TABLET PO SCH (10:27)
[2016-12-26] MEDS: PRENATAL VITAMINS W/ FOLIC ACID TABLET (FP) PO SCH (10:27)
[2016-12-26] MEDS: CITALOPRAM HYDROBROMIDE 20 MG TABLET (FP) PO SCH (10:27)
[2016-12-26] MEDS: NICOTINE 21 MG/24 HOURS TOPICAL PATCH TD SCH (10:29)
[2016-12-26] MEDS: LIDOCAINE 5% TOPICAL PATCH TP SCH (10:30)
[2016-12-26] MEDS: CYCLOBENZAPRINE HCL 10 MG TABLET (FP) PO PRN (10:32)
[2016-12-26] MEDS: BUDESONIDE/FORMETEROL FUMARATE 80/4.5 mcg INHALER IH SCH ×2 (10:55→21:11)
[2016-12-26] MEDS: CYPROHEPTADINE HCL 4 MG TABLET PO SCH (16:30)
[2016-12-26] MEDS: THIAMINE HCL 100 MG TABLET (FP) PO SCH (21:10)
[2016-12-26] MEDS: diphenhydrAMINE HCL 50 MG CAPSULE PO PRN (21:10)
[2016-12-27] MEDS ORDERED: METHADONE HCL 40 MG DISPERSABLE TABLET ONE (04:25)
[2016-12-27] MEDS ORDERED: METHADONE HCL 10 MG TABLET ONE (04:25)
[2016-12-27] MEDS: METHADONE 80 MG, METHADONE 10 MG PO SCH (05:53)
[2016-12-27] MEDS: CYPROHEPTADINE HCL 4 MG TABLET PO SCH ×2 (08:04→16:49)
[2016-12-27] MEDS: buPROPion HCL 100 MG TABLET PO SCH (10:15)
[2016-12-27] MEDS: ARIPiprazole 10 MG TABLET PO SCH (10:15)
[2016-12-27] MEDS: PRENATAL VITAMINS W/ FOLIC ACID TABLET (FP) PO SCH (10:15)
[2016-12-27] MEDS: CITALOPRAM HYDROBROMIDE 20 MG TABLET (FP) PO SCH (10:15)
[2016-12-27] MEDS: NICOTINE 21 MG/24 HOURS TOPICAL PATCH TD SCH (10:16)
[2016-12-27] MEDS: LIDOCAINE 5% TOPICAL PATCH TP SCH (10:16)
[2016-12-27] MEDS: CYCLOBENZAPRINE HCL 10 MG TABLET (FP) PO PRN ×2 (10:17→21:06)
[2016-12-27] MEDS: BUDESONIDE/FORMETEROL FUMARATE 80/4.5 mcg INHALER IH SCH ×2 (10:28→23:59)
[2016-12-27] MEDS: THIAMINE HCL 100 MG TABLET (FP) PO SCH (21:06)
[2016-12-27] MEDS: diphenhydrAMINE HCL 50 MG CAPSULE PO PRN (21:07)
[2016-12-28] MEDS ORDERED: METHADONE HCL 10 MG TABLET ONE (04:30)
[2016-12-28] MEDS ORDERED: METHADONE HCL 40 MG DISPERSABLE TABLET ONE (04:31)
[2016-12-28] MEDS: METHADONE 80 MG, METHADONE 10 MG PO SCH (06:15)
[2016-12-28] MEDS: CYPROHEPTADINE HCL 4 MG TABLET PO SCH ×2 (06:16→16:56)
[2016-12-28] MEDS: PRENATAL VITAMINS W/ FOLIC ACID TABLET (FP) PO SCH (10:21)
[2016-12-28] MEDS: CITALOPRAM HYDROBROMIDE 20 MG TABLET (FP) PO SCH (10:21)
[2016-12-28] MEDS: buPROPion HCL 100 MG TABLET PO SCH (10:21)
[2016-12-28] MEDS: LIDOCAINE 5% TOPICAL PATCH TP SCH (10:21)
[2016-12-28] MEDS: ARIPiprazole 10 MG TABLET PO SCH (10:21)
[2016-12-28] MEDS: BUDESONIDE/FORMETEROL FUMARATE 80/4.5 mcg INHALER IH SCH ×2 (10:21→21:51)
[2016-12-28] MEDS: NICOTINE 21 MG/24 HOURS TOPICAL PATCH TD SCH (10:21)
[2016-12-28] MEDS: THIAMINE HCL 100 MG TABLET (FP) PO SCH (21:50)
[2016-12-28] MEDS: diphenhydrAMINE HCL 50 MG CAPSULE PO PRN (21:50)
[2016-12-29] MEDS ORDERED: METHADONE HCL 40 MG DISPERSABLE TABLET ONE (04:17)
[2016-12-29] MEDS ORDERED: METHADONE HCL 10 MG TABLET ONE (04:17)
[2016-12-29] MEDS: CYPROHEPTADINE HCL 4 MG TABLET PO SCH ×2 (06:04→16:38)
[2016-12-29] MEDS: METHADONE 80 MG, METHADONE 10 MG PO SCH (06:04)
[2016-12-29] MEDS: LIDOCAINE 5% TOPICAL PATCH TP SCH (10:38)
[2016-12-29] MEDS: ARIPiprazole 10 MG TABLET PO SCH (10:39)
[2016-12-29] MEDS: CITALOPRAM HYDROBROMIDE 20 MG TABLET (FP) PO SCH (10:39)
[2016-12-29] MEDS: NICOTINE 21 MG/24 HOURS TOPICAL PATCH TD SCH (10:39)
[2016-12-29] MEDS: buPROPion HCL 100 MG TABLET PO SCH (10:39)
[2016-12-29] MEDS: PRENATAL VITAMINS W/ FOLIC ACID TABLET (FP) PO SCH (10:41)
[2016-12-29] MEDS: BUDESONIDE/FORMETEROL FUMARATE 80/4.5 mcg INHALER IH SCH ×2 (10:42→23:25)
[2016-12-29] MEDS ORDERED: PT OWN MED DRAWER 7, Y5N ONE (10:42)
[2016-12-29] MEDS: diphenhydrAMINE HCL 50 MG CAPSULE PO PRN (21:43)
[2016-12-29] MEDS: THIAMINE HCL 100 MG TABLET (FP) PO SCH (21:43)
[2016-12-30] MEDS ORDERED: METHADONE HCL 10 MG TABLET ONE (04:43)
[2016-12-30] MEDS ORDERED: METHADONE HCL 40 MG DISPERSABLE TABLET ONE (04:44)
[2016-12-30] MEDS: METHADONE 80 MG, METHADONE 10 MG PO SCH (06:04)
[2016-12-30] MEDS: CYPROHEPTADINE HCL 4 MG TABLET PO SCH ×2 (06:04→16:30)
[2016-12-30] MEDS: CITALOPRAM HYDROBROMIDE 20 MG TABLET (FP) PO SCH (10:16)
[2016-12-30] MEDS: ARIPiprazole 10 MG TABLET PO SCH (10:17)
[2016-12-30] MEDS: PRENATAL VITAMINS W/ FOLIC ACID TABLET (FP) PO SCH (10:18)
[2016-12-30] MEDS: buPROPion HCL 100 MG TABLET PO SCH (10:18)
[2016-12-30] MEDS ORDERED: PT OWN MED DRAWER 7, Y5N ONE (10:19)
[2016-12-30] MEDS: LIDOCAINE 5% TOPICAL PATCH TP SCH (10:19)
[2016-12-30] MEDS: NICOTINE 21 MG/24 HOURS TOPICAL PATCH TD SCH (10:19)
[2016-12-30] MEDS: BUDESONIDE/FORMETEROL FUMARATE 80/4.5 mcg INHALER IH SCH ×2 (10:21→22:26)
[2016-12-30] MEDS: THIAMINE HCL 100 MG TABLET (FP) PO SCH (22:26)
[2016-12-31] MEDS ORDERED: METHADONE HCL 40 MG DISPERSABLE TABLET ONE (05:01)
[2016-12-31] MEDS ORDERED: METHADONE HCL 10 MG TABLET ONE (05:01)
[2016-12-31] MEDS: METHADONE 80 MG, METHADONE 10 MG PO SCH (06:19)
[2016-12-31] MEDS: CYPROHEPTADINE HCL 4 MG TABLET PO SCH ×2 (06:20→16:54)
[2016-12-31] MEDS ORDERED: PT OWN MED DRAWER 7, Y5N ONE (08:59)
[2016-12-31] MEDS: NICOTINE 21 MG/24 HOURS TOPICAL PATCH TD SCH (10:11)
[2016-12-31] MEDS: PRENATAL VITAMINS W/ FOLIC ACID TABLET (FP) PO SCH (10:11)
[2016-12-31] MEDS: ARIPiprazole 10 MG TABLET PO SCH (10:11)
[2016-12-31] MEDS: CITALOPRAM HYDROBROMIDE 20 MG TABLET (FP) PO SCH (10:11)
[2016-12-31] MEDS: buPROPion HCL 100 MG TABLET PO SCH (10:11)
[2016-12-31] MEDS: LIDOCAINE 5% TOPICAL PATCH TP SCH (10:11)
[2016-12-31] MEDS: BUDESONIDE/FORMETEROL FUMARATE 80/4.5 mcg INHALER IH SCH ×2 (10:11→21:23)
[2016-12-31] MEDS: THIAMINE HCL 100 MG TABLET (FP) PO SCH (21:22)
[2016-12-31] MEDS: diphenhydrAMINE HCL 50 MG CAPSULE PO PRN (21:22)
[2017-01-01] MEDS ORDERED: METHADONE HCL 10 MG TABLET ONE (05:35)
[2017-01-01] MEDS ORDERED: METHADONE HCL 40 MG DISPERSABLE TABLET ONE (05:35)
[2017-01-01] MEDS: CYPROHEPTADINE HCL 4 MG TABLET PO SCH ×2 (06:49→16:36)
[2017-01-01] MEDS: METHADONE 80 MG, METHADONE 10 MG PO SCH (06:49)
[2017-01-01] MEDS ORDERED: PT OWN MED DRAWER 7, Y5N ONE (09:01)
[2017-01-01] MEDS: PRENATAL VITAMINS W/ FOLIC ACID TABLET (FP) PO SCH (10:01)
[2017-01-01] MEDS: ARIPiprazole 10 MG TABLET PO SCH (10:01)
[2017-01-01] MEDS: buPROPion HCL 100 MG TABLET PO SCH (10:01)
[2017-01-01] MEDS: CITALOPRAM HYDROBROMIDE 20 MG TABLET (FP) PO SCH (10:01)
[2017-01-01] MEDS: LIDOCAINE 5% TOPICAL PATCH TP SCH (10:01)
[2017-01-01] MEDS: NICOTINE 21 MG/24 HOURS TOPICAL PATCH TD SCH (10:01)
[2017-01-01] MEDS: BUDESONIDE/FORMETEROL FUMARATE 80/4.5 mcg INHALER IH SCH ×2 (10:01→23:00)
[2017-01-01] MEDS: THIAMINE HCL 100 MG TABLET (FP) PO SCH (21:12)
[2017-01-01] MEDS: diphenhydrAMINE HCL 50 MG CAPSULE PO PRN (21:12)
[2017-01-02] MEDS ORDERED: METHADONE HCL 40 MG DISPERSABLE TABLET ONE (02:51)
[2017-01-02] MEDS ORDERED: METHADONE HCL 10 MG TABLET ONE (02:51)
[2017-01-02] MEDS: METHADONE 80 MG, METHADONE 10 MG PO SCH (06:24)
[2017-01-02] MEDS: CYPROHEPTADINE HCL 4 MG TABLET PO SCH ×2 (06:24→16:30)
[2017-01-02] MEDS: CITALOPRAM HYDROBROMIDE 20 MG TABLET (FP) PO SCH (10:28)
[2017-01-02] MEDS: ARIPiprazole 10 MG TABLET PO SCH (10:28)
[2017-01-02] MEDS: buPROPion HCL 100 MG TABLET PO SCH (10:28)
[2017-01-02] MEDS: PRENATAL VITAMINS W/ FOLIC ACID TABLET (FP) PO SCH (10:28)
[2017-01-02] MEDS: NICOTINE 21 MG/24 HOURS TOPICAL PATCH TD SCH (10:29)
[2017-01-02] MEDS: LIDOCAINE 5% TOPICAL PATCH TP SCH (10:29)
[2017-01-02] MEDS: BUDESONIDE/FORMETEROL FUMARATE 80/4.5 mcg INHALER IH SCH ×2 (10:42→22:32)
[2017-01-02] MEDS: THIAMINE HCL 100 MG TABLET (FP) PO SCH (22:33)
[2017-01-03] MEDS ORDERED: METHADONE HCL 40 MG DISPERSABLE TABLET ONE (04:30)
[2017-01-03] MEDS ORDERED: METHADONE HCL 10 MG TABLET ONE (04:30)
[2017-01-03] MEDS: CYPROHEPTADINE HCL 4 MG TABLET PO SCH ×2 (06:20→16:41)
[2017-01-03] MEDS: METHADONE 80 MG, METHADONE 10 MG PO SCH (06:20)
[2017-01-03] MEDS: CITALOPRAM HYDROBROMIDE 20 MG TABLET (FP) PO SCH (10:28)
[2017-01-03] MEDS: PRENATAL VITAMINS W/ FOLIC ACID TABLET (FP) PO SCH (10:28)
[2017-01-03] MEDS: LIDOCAINE 5% TOPICAL PATCH TP SCH (10:28)
[2017-01-03] MEDS: buPROPion HCL 100 MG TABLET PO SCH (10:28)
[2017-01-03] MEDS: NICOTINE 21 MG/24 HOURS TOPICAL PATCH TD SCH (10:28)
[2017-01-03] MEDS: ARIPiprazole 10 MG TABLET PO SCH (10:28)
[2017-01-03] MEDS: CYCLOBENZAPRINE HCL 10 MG TABLET (FP) PO PRN (10:31)
[2017-01-03] MEDS: BUDESONIDE/FORMETEROL FUMARATE 80/4.5 mcg INHALER IH SCH ×2 (10:33→23:37)
[2017-01-03] MEDS: THIAMINE HCL 100 MG TABLET (FP) PO SCH (23:37)
[2017-01-04] MEDS ORDERED: METHADONE HCL 10 MG TABLET ONE (04:21)
[2017-01-04] MEDS ORDERED: METHADONE HCL 40 MG DISPERSABLE TABLET ONE (04:21)
[2017-01-04] MEDS: METHADONE 80 MG, METHADONE 10 MG PO SCH (06:18)
[2017-01-04] MEDS: CYPROHEPTADINE HCL 4 MG TABLET PO SCH ×2 (06:18→17:03)
[2017-01-04] MEDS: LIDOCAINE 5% TOPICAL PATCH TP SCH (10:06)
[2017-01-04] MEDS: ARIPiprazole 10 MG TABLET PO SCH (10:06)
[2017-01-04] MEDS: PRENATAL VITAMINS W/ FOLIC ACID TABLET (FP) PO SCH (10:06)
[2017-01-04] MEDS: CITALOPRAM HYDROBROMIDE 20 MG TABLET (FP) PO SCH (10:06)
[2017-01-04] MEDS: buPROPion HCL 100 MG TABLET PO SCH (10:06)
[2017-01-04] MEDS: NICOTINE 21 MG/24 HOURS TOPICAL PATCH TD SCH (10:06)
[2017-01-04] MEDS ORDERED: PT OWN MED DRAWER 7, Y5N ONE (10:07)
[2017-01-04] MEDS: BUDESONIDE/FORMETEROL FUMARATE 80/4.5 mcg INHALER IH SCH ×2 (10:07→22:10)
[2017-01-04] MEDS: THIAMINE HCL 100 MG TABLET (FP) PO SCH (22:10)
[2017-01-05] MEDS ORDERED: METHADONE HCL 40 MG DISPERSABLE TABLET ONE (05:38)
[2017-01-05] MEDS ORDERED: METHADONE HCL 10 MG TABLET ONE (05:38)
[2017-01-05] MEDS: CYPROHEPTADINE HCL 4 MG TABLET PO SCH ×2 (06:17→16:53)
[2017-01-05] MEDS: METHADONE 80 MG, METHADONE 10 MG PO SCH (06:17)
[2017-01-05] MEDS: CITALOPRAM HYDROBROMIDE 20 MG TABLET (FP) PO SCH (10:18)
[2017-01-05] MEDS: buPROPion HCL 100 MG TABLET PO SCH (10:18)
[2017-01-05] MEDS: PRENATAL VITAMINS W/ FOLIC ACID TABLET (FP) PO SCH (10:18)
[2017-01-05] MEDS: ARIPiprazole 10 MG TABLET PO SCH (10:18)
[2017-01-05] MEDS: NICOTINE 21 MG/24 HOURS TOPICAL PATCH TD SCH (10:18)
[2017-01-05] MEDS: LIDOCAINE 5% TOPICAL PATCH TP SCH (10:21)
[2017-01-05] MEDS: BUDESONIDE/FORMETEROL FUMARATE 80/4.5 mcg INHALER IH SCH ×2 (10:22→21:19)
[2017-01-05] MEDS: CYCLOBENZAPRINE HCL 10 MG TABLET (FP) PO PRN (10:22)
[2017-01-05] MEDS: THIAMINE HCL 100 MG TABLET (FP) PO SCH (21:19)
[2017-01-05] MEDS: diphenhydrAMINE HCL 50 MG CAPSULE PO PRN (21:19)
[2017-01-06] MEDS ORDERED: METHADONE HCL 40 MG DISPERSABLE TABLET ONE (04:32)
[2017-01-06] MEDS ORDERED: METHADONE HCL 10 MG TABLET ONE (04:32)
[2017-01-06] MEDS: CYPROHEPTADINE HCL 4 MG TABLET PO SCH ×2 (06:26→16:47)
[2017-01-06] MEDS: METHADONE 80 MG, METHADONE 10 MG PO SCH (06:26)
[2017-01-06] MEDS: CITALOPRAM HYDROBROMIDE 20 MG TABLET (FP) PO SCH (10:26)
[2017-01-06] MEDS: buPROPion HCL 100 MG TABLET PO SCH (10:26)
[2017-01-06] MEDS: PRENATAL VITAMINS W/ FOLIC ACID TABLET (FP) PO SCH (10:26)
[2017-01-06] MEDS: ARIPiprazole 10 MG TABLET PO SCH (10:26)
[2017-01-06] MEDS: NICOTINE 21 MG/24 HOURS TOPICAL PATCH TD SCH (10:27)
[2017-01-06] MEDS: LIDOCAINE 5% TOPICAL PATCH TP SCH (10:29)
[2017-01-06] MEDS: BUDESONIDE/FORMETEROL FUMARATE 80/4.5 mcg INHALER IH SCH ×2 (10:29→23:24)
[2017-01-06] MEDS: diphenhydrAMINE HCL 50 MG CAPSULE PO PRN (21:16)
[2017-01-06] MEDS: THIAMINE HCL 100 MG TABLET (FP) PO SCH (21:16)
[2017-01-07] MEDS ORDERED: METHADONE HCL 40 MG DISPERSABLE TABLET ONE (04:15)
[2017-01-07] MEDS ORDERED: METHADONE HCL 10 MG TABLET ONE (04:15)
[2017-01-07] MEDS: CYPROHEPTADINE HCL 4 MG TABLET PO SCH ×2 (06:15→16:30)
[2017-01-07] MEDS: METHADONE 80 MG, METHADONE 10 MG PO SCH (06:15)
[2017-01-07] MEDS: BUDESONIDE/FORMETEROL FUMARATE 80/4.5 mcg INHALER IH SCH ×2 (10:15→21:14)
[2017-01-07] MEDS: CITALOPRAM HYDROBROMIDE 20 MG TABLET (FP) PO SCH (10:17)
[2017-01-07] MEDS: PRENATAL VITAMINS W/ FOLIC ACID TABLET (FP) PO SCH (10:17)
[2017-01-07] MEDS: NICOTINE 21 MG/24 HOURS TOPICAL PATCH TD SCH (10:17)
[2017-01-07] MEDS: buPROPion HCL 100 MG TABLET PO SCH (10:17)
[2017-01-07] MEDS: ARIPiprazole 10 MG TABLET PO SCH (10:17)
[2017-01-07] MEDS: LIDOCAINE 5% TOPICAL PATCH TP SCH (10:21)
[2017-01-07] MEDS: CYCLOBENZAPRINE HCL 10 MG TABLET (FP) PO PRN (10:21)
[2017-01-07] MEDS: diphenhydrAMINE HCL 50 MG CAPSULE PO PRN (21:14)
[2017-01-07] MEDS: THIAMINE HCL 100 MG TABLET (FP) PO SCH (21:14)
[2017-01-08] MEDS ORDERED: METHADONE HCL 10 MG TABLET ONE (04:14)
[2017-01-08] MEDS ORDERED: METHADONE HCL 40 MG DISPERSABLE TABLET ONE (04:14)
[2017-01-08] MEDS: METHADONE 80 MG, METHADONE 10 MG PO SCH (05:52)
[2017-01-08] MEDS: CYPROHEPTADINE HCL 4 MG TABLET PO SCH ×2 (06:02→17:04)
[2017-01-08] MEDS ORDERED: PT OWN MED DRAWER 7, Y5N ONE (09:13)
[2017-01-08] MEDS: buPROPion HCL 100 MG TABLET PO SCH (10:14)
[2017-01-08] MEDS: PRENATAL VITAMINS W/ FOLIC ACID TABLET (FP) PO SCH (10:14)
[2017-01-08] MEDS: BUDESONIDE/FORMETEROL FUMARATE 80/4.5 mcg INHALER IH SCH ×2 (10:15→21:35)
[2017-01-08] MEDS: CITALOPRAM HYDROBROMIDE 20 MG TABLET (FP) PO SCH (10:15)
[2017-01-08] MEDS: ARIPiprazole 10 MG TABLET PO SCH (10:15)
[2017-01-08] MEDS: NICOTINE 21 MG/24 HOURS TOPICAL PATCH TD SCH (10:15)
[2017-01-08] MEDS: LIDOCAINE 5% TOPICAL PATCH TP SCH (10:15)
[2017-01-08] MEDS: THIAMINE HCL 100 MG TABLET (FP) PO SCH (21:34)
[2017-01-08] MEDS: diphenhydrAMINE HCL 50 MG CAPSULE PO PRN (21:34)
[2017-01-09] MEDS ORDERED: METHADONE HCL 40 MG DISPERSABLE TABLET ONE (05:08)
[2017-01-09] MEDS ORDERED: METHADONE HCL 10 MG TABLET ONE (05:08)
[2017-01-09] MEDS: CYPROHEPTADINE HCL 4 MG TABLET PO SCH (06:09)
[2017-01-09] MEDS: METHADONE 80 MG, METHADONE 10 MG PO SCH (06:09)
--- NOTE | 2017-01-09 06:46 | PN ---
Psychiatric Progress Note Vital Signs: Vital Signs Period Temp Pulse Resp BP Sys/Souza Pulse Ox Last 24 Hr 97.5 F 70 18-18 107/76 Date of Session: 01/09/17 Chief Complaint:: Psychiatrist Discharge Note HPI: Patient addressing Alcohol, Cocaine, Sedative and Cannabis Dependence comorbid with Opoid Dependence, Nicoitine Dependendece, PTSD and MDD ROS: COPD, Hepatitits C, chronic back pain were medically managed Current Medications: Active Medications Generic Name Dose Route Start Last Admin Trade Name Freq PRN Reason Stop Dose Admin Acetaminophen 650 mg 12/18/16 15:09 Tylenol - PO Q4H PRN FEVER OR PAIN Al Hydroxide/Mg Hydroxide 30 ml 12/18/16 15:09 Mylanta Oral Suspension - PO Q6H PRN DYSPEPSIA Aripiprazole 10 mg 12/19/16 10:00 01/08/17 10:15 Abilify PO 10 mg DAILY ANDREI Administration Budesonide/Formoterol Fumarate 2 puff 12/18/16 22:00 01/08/17 21:35 Symbicort 80/4.5mcg - IH Not Given BID ANDREI Bupropion HCl 100 mg 12/19/16 10:00 01/08/17 10:14 Wellbutrin - PO 100 mg DAILY ANDREI Administration Citalopram Hydrobromide 20 mg 12/19/16 10:00 01/08/17 10:15 Celexa - PO 20 mg DAILY ANDREI Administration Cyclobenzaprine HCl 10 mg 12/22/16 12:24 01/07/17 10:21 Flexeril - PO 10 mg TID PRN Administration MUSCLE SPASMS Cyproheptadine HCl 4 mg 12/26/16 16:30 01/09/17 06:09 Periactin - PO 4 mg BIDAC ANDREI Administration Diphenhydramine HCl 50 mg 12/18/16 15:09 01/08/17 21:34 Benadryl - PO 50 mg HSMR1 PRN Administration FOR ITCHING Eucalyptus/Menthol/Phenol/Sorbitol 1 each 12/18/16 15:09 Cepastat Lozenge - MM Q4H PRN SORE THROAT Guaifenesin 10 ml 12/18/16 15:09 Robitussin Dm - PO Q6H PRN COUGH Hydroxyzine Pamoate 50 mg 12/20/16 10:27 12/25/16 21:41 Vistaril - PO 50 mg Q4H PRN Administration FOR ITCHING Ibuprofen 400 mg 12/18/16 15:09 Motrin - PO Q6H PRN PAIN Lidocaine 1 patch 12/23/16 10:00 01/08/17 10:15 Lidoderm Patch - TP 1 patch DAILY ANDREI Administration Loperamide HCl 4 mg 12/18/16 15:09 12/19/16 09:09 Imodium - PO 4 mg Q6H PRN Administration DIARRHEA Magnesium Hydroxide 30 ml 12/18/16 15:09 Milk Of Magnesia - PO DAILY PRN CONSTIPATION Methadone HCl 80 mg/ Methadone 90 mg 01/06/17 06:00 01/09/17 06:09 HCl 10 mg PO 01/12/17 05:59 90 mg DAILY@06 ANDREI Administration Nicotine 21 mg 12/19/16 10:00 01/08/17 10:15 Nicoderm Patch - TD 21 mg DAILY ANDREI Administration Nicotine Polacrilex 2 mg 12/18/16 15:09 Nicorette Gum - BUC Q2H PRN NICOTINE REPLACEMENT RX Ondansetron HCl 4 mg 12/19/16 10:49 12/20/16 09:28 Zofran Odt - SL 4 mg Q8H PRN Administration DIARRHEA Multivit/Folic Acid/Iron 1 tab 12/19/16 10:00 01/08/17 10:14 Vitamins (Sjr) - PO 1 tab DAILY ANDREI Administration Pseudoephedrine/Triprolidine 1 combo 12/18/16 15:09 Actifed - PO TID PRN NASAL CONGESTION Thiamine HCl 100 mg 12/18/16 22:00 01/08/17 21:34 Vitamin B1 - PO 100 mg HS ANDREI Administration Current Side Effect: No Lab tests ordered: Yes Lab tests reviewed: Yes Provider note:: Patient has completed this program today. He has met his treatment goals and will continue to address his issues in outpatient treatment at [facility]. Told data analyst report writer that from his participation in this program, he has learned the importance of establishing a sober support network for the sake of maintaining sobriety. He responded well to Abilify 10 mg po daily, Celexa 20 mg po daily and Wellbutrin 100 mg po daily. Scripts for 30 days supply of these medications are electronically transmitted to [facility] [place] [address]. He is stable for discharge today Total face to face time:: 35 Mental Status Exam - Mental Status Exam Alert and Oriented to: Time, Place, Person Cognitive Function: Fair Patient Appearance: Well Groomed Mood: Hopeful, Euthymic Affect: Appropriate Patient Behavior: Cooperative Speech Pattern: Clear, Artificially Ventilated Voice Loudness: Limited Variation Thought Process: Goal Oriented Thought Disorder: Not Present Hallucinations: Denies Suicidal Ideation: Denies Homicidal Ideation: Denies Insight/Judgement: Fair Appetite: Good Muscle strength/Tone: Normal Gait/Station: Normal Psychiatric Treatment Plan - Problem List (1) Alcohol dependence Current Visit: No (2) Cocaine dependence Current Visit: No Qualifiers: Substance use status: uncomplicated Qualified Code(s): F14.20 - Cocaine dependence, uncomplicated (3) Sedative dependence Current Visit: No (4) Cannabis dependence Current Visit: No (5) Opioid dependence on agonist therapy Current Visit: No (6) Nicotine dependence Current Visit: Yes (7) Post traumatic stress disorder (PTSD) Current Visit: No (8) MDD (major depressive disorder) Current Visit: No Qualifiers: Major depression recurrence: recurrent Active/Remission status: in partial remission Qualified Code(s): F33.41 - Major depressive disorder, recurrent, in partial remission (9) COPD (chronic obstructive pulmonary disease) Current Visit: Yes (10) Chronic back pain Current Visit: No Qualifiers: Back pain location: low back pain Back pain laterality: midline Sciatica presence: without sciatica Qualified Code(s): M54.5 - Low back pain; G89.29 - Other chronic pain (11) Hepatitis C antibody test positive Current Visit: No Initial treatment plan: Patient is discharged today and referred to [facility] for outpatient treatment
[2017-01-09 07:53] VITALS: BP 123/76; PULSE 78; TEMP 97.4
[2017-01-09] MEDS ORDERED: PT OWN MED DRAWER 7, Y5N ONE (08:31)
[2017-01-09] MEDS: LIDOCAINE 5% TOPICAL PATCH TP SCH (09:19)
[2017-01-09] MEDS: NICOTINE 21 MG/24 HOURS TOPICAL PATCH TD SCH (09:20)
[2017-01-09] MEDS: ARIPiprazole 10 MG TABLET PO SCH (09:20)
[2017-01-09] MEDS: buPROPion HCL 100 MG TABLET PO SCH (09:20)
[2017-01-09] MEDS: CITALOPRAM HYDROBROMIDE 20 MG TABLET (FP) PO SCH (09:20)
[2017-01-09] MEDS: BUDESONIDE/FORMETEROL FUMARATE 80/4.5 mcg INHALER IH SCH (09:21)
[2017-01-09] MEDS: PRENATAL VITAMINS W/ FOLIC ACID TABLET (FP) PO SCH (09:21)
== END 2017-01-09 09:15 | disposition home or self-care (01) | DRG 772 ==
LOC: YASAS 13:25 → Y3W 13:26
PROVIDERS: ADMIT Psychiatry & Neurology Psychiatry; ATTEND Psychiatry & Neurology Psychiatry
PROC: HZ42ZZZ Group Counseling for Substance Abuse Treatment, Cognitive-Behavioral (ICD-10-PCS; principal; 2017-01-09)
DX: F11.20 Opioid dependence, uncomplicated (principal); F13.20 Sedative, hypnotic or anxiolytic dependence, uncomplicated; F10.20 Alcohol dependence, uncomplicated; F14.20 Cocaine dependence, uncomplicated; F12.20 Cannabis dependence, uncomplicated; F17.210 Nicotine dependence, cigarettes, uncomplicated; F33.41 Major depressive disorder, recurrent, in partial remission; F43.10 Post-traumatic stress disorder, unspecified; J44.9 Chronic obstructive pulmonary disease, unspecified; M54.5 Low back pain; G89.29 Other chronic pain; B18.2 Chronic viral hepatitis C

== ENCOUNTER 2017-04-12 13:02 | Inpatient (IN) | payer OTHER ==
[2017-04-12 15:06] VITALS: BMI 21.1
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
[2017-04-12] MEDS ORDERED: MAGNESIUM HYDROX 2400MG/30ML ORAL SUSPENSION 30 ML CUP PO PRN (17:32)
[2017-04-12] MEDS ORDERED: NICOTINE POLACRILEX 2 MG GUM BC PRN (17:32)
[2017-04-12] MEDS ORDERED: MAGNESIUM CITRATE 300 ML BOTTLE PO PRN (17:32)
[2017-04-12] MEDS ORDERED: LOPERAMIDE HCL 2 MG CAPSULE PO PRN (17:32)
[2017-04-12] MEDS ORDERED: guaiFENesin/D-METHORPHAN HB 10 ML UNIT-DOSE CUPS PO PRN (17:32)
[2017-04-12] MEDS ORDERED: P-EPHED 60MG/TRIPROLIDI 2.5MG TABLET PO PRN (17:32)
[2017-04-12] MEDS ORDERED: MAG HYDROX/AL HYDROX/SIMETH 30 ML UNIT-DOSE CUP PO PRN (17:32)
[2017-04-12] MEDS ORDERED: MENTHOL/PHENOL 1 EACH UD MM PRN (17:32)
[2017-04-12] MEDS ORDERED: ACETAMINOPHEN 325 MG TABLET (FP) PO PRN (17:32)
[2017-04-12] MEDS ORDERED: ALBUTEROL SO4 6.7 GM HFA INHALER IH PRN (17:35)
[2017-04-12] MEDS ORDERED: ALBUTEROL SO4 2.5/IPRATROPIUM 0.5 INH SOL 3 ML VIAL.NEB. NEB PRN (17:35)
[2017-04-12] MEDS ORDERED: diazePAM 5 MG TABLET PO ONE (18:15)
[2017-04-12] MEDS: THIAMINE HCL 100 MG TABLET (FP) PO SCH (22:45)
[2017-04-12] MEDS: diazePAM 5 MG TABLET PO SCH (22:45)
[2017-04-12] MEDS: NAPROXEN 500 MG TABLET (FP) PO SCH (22:45)
[2017-04-12] MEDS: CYCLOBENZAPRINE HCL 10 MG TABLET (FP) PO PRN (22:45)
[2017-04-12] MEDS: diphenhydrAMINE HCL 50 MG CAPSULE PO PRN (22:46)
[2017-04-12] MEDS: LIDOCAINE PATCH REMOVAL MC SCH (23:46)
[2017-04-13 02:28] LABS: URINE APPEARANCE CLEAR; URINE BILIRUBIN NEGATIVE (NEGATIVE); URINE BLOOD NEGATIVE (NEGATIVE); URINE COLOR YELLOW; URINE GLUCOSE (UA) NEGATIVE (NEGATIVE); URINE KETONE NEGATIVE (NEGATIVE); URINE NITRITE NEGATIVE (NEGATIVE); URINE PROTEIN NEGATIVE (NEGATIVE); URINE UROBILINOGEN NEGATIVE E.U./dl (0.2-1.0)
[2017-04-13 02:31] LABS: URINE LEUK ESTERASE TRACE (NEGATIVE)
[2017-04-13 02:38] LABS: URINE RBC 1 /hpf (0-3); URINE WBC 2 /hpf (3-5)
[2017-04-13] MEDS: diazePAM 5 MG TABLET PO SCH ×3 (05:35→22:43)
[2017-04-13] MEDS: diazePAM 5 MG TABLET PO PRN ×3 (06:54→20:18)
[2017-04-13] MEDS ORDERED: METHADONE HCL 10 MG TABLET PO ONE (09:30)
[2017-04-13] MEDS ORDERED: METHADONE 80 MG, METHADONE 10 MG PO ONE (09:40)
[2017-04-13 10:10] LABS: MCH 28.8 pg (25.7-33.7); MCHC 32.2 g/dl (32.0-35.9); MEAN CELL VOLUME 89.4 fl (80-96); MEAN PLT VOLUME 9.2 fl (7.5-11.1); PLATELET COUNT 189 K/MM3 (134-434); RDW 15.1 % (11.9-15.9); WHITE BLOOD COUNT 5.7 K/mm3 (4.0-10.0)
[2017-04-13] MEDS ORDERED: METHADONE HCL 10 MG TABLET ONE (10:22)
[2017-04-13] MEDS ORDERED: METHADONE HCL 40 MG DISPERSABLE TABLET ONE (10:22)
[2017-04-13] MEDS: CITALOPRAM HYDROBROMIDE 20 MG TABLET (FP) PO SCH (10:23)
[2017-04-13] MEDS: NAPROXEN 500 MG TABLET (FP) PO SCH ×2 (10:24→22:44)
[2017-04-13] MEDS: NICOTINE 14 MG/24 HOURS TOPICAL PATCH TD SCH (10:24)
[2017-04-13] MEDS: ARIPiprazole 10 MG TABLET PO SCH (10:24)
[2017-04-13] MEDS: PRENATAL VITAMINS W/ FOLIC ACID TABLET (FP) PO SCH (10:25)
[2017-04-13 11:08] LABS: ALBUMIN 3.7 g/dl (3.4-5.0); ALK PHOS 106 U/L (45-117); ANION GAP 6 (8-16); BILIRUBIN,TOTAL 0.4 mg/dL (0.2-1.0); CALCIUM 9.1 mg/dL (8.5-10.1); CO2 33 mmol/L (21-32); CREATININE 0.7 mg/dL (0.7-1.3); GLUCOSE,RANDOM 51 mg/dL (74-106); SGOT/AST 27 U/L (15-37); SGPT/ALT 37 U/L (12-78); TOT PROT 6.4 g/dl (6.4-8.2)
--- NOTE | 2017-04-13 12:07 | CONSULT ---
[facility] Psychiatric Consult - Data Date of interview: 04/13/17 Admission source: [facility] Identifying data: This is 47 years old male with history of MDD, PTSD, no psychiatric hospitalization history intoxicated with: Opioids, Cocaine, Cannabis, Alcohol, Xanax and Nicotine Substance Abuse History: - Smoking Cessation. Smoking history: Current every day smoker. Have you smoked in the past 12 months: Yes. Aproximately how many cigarettes per day: 10. Cigars Per Day: 0. Hx Chewing Tobacco Use: No. Initiated information on smoking cessation: Yes. 'Breaking Loose' booklet given : 04/12/17. - Substance & Tx. History. Hx Alcohol Use: Yes. Hx Substance Use : Yes. Substance Use Type: Alcohol, Cocaine, Heroin, Marijuana. Hx Substance Use Treatment: Yes (12/18-01/09/17 [place]). - Substances Abused. Alcohol. Route: Oral. Frequency: Daily. Amount used: vodka 1 pints , 4-5 of 24 oz of beer. Age of first use: 10. Date of Last Use: 04/11/17. Cocaine. Route: Smoking. Frequency: Daily. Amount used: 3 bags. Age of first use: 16. Date of Last Use: 04/11/17. Marijuana/Hashish. Route: Smoking. Frequency: Daily. Amount used: 1 joint. Age of first use: 22. Date of Last Use: 04/12/17 Medical History: HepC+, MMTP history, Weight loss, LBP,COPD, [place] history Psychiatric History: Patient reports to carry MDD, PTSD, reports taking prior to admission: Celexa 20mg poqd. Ambien 10mg po qhs. Abilify 10mg poqd Physical/Sexual Abuse/Trauma History: Denies Additional Comment: Celexa 20mg poqd. Ambien 10mg po qhs. Abilify 10mg poqd Mental Status Exam - Mental Status Exam Alert and Oriented to: Person Cognitive Function: Fair Patient Appearance: Unkempt Mood: Sad Affect: Flat Patient Behavior: Sedated Speech Pattern: Delayed Voice Loudness: Mildly Soft/Quiet Thought Process: Circumstantial, Goal Oriented Thought Disorder: Being Controlled Hallucinations: Denies Suicidal Ideation: Denies Homicidal Ideation: Denies Sleep: Difficulty falling asleep Appetite: Weight loss Muscle strength/Tone: Mild Hypotonicity Gait/Station: Shuffling Additional Comments: Celexa 20mg poqd. Ambien 10mg po qhs. Abilify 10mg poqd Psychiatric Findings - Problem List ([place] 1, 2,3) (1) Alcohol dependence with uncomplicated withdrawal Current Visit: Yes Status: Acute (2) Nicotine dependence Current Visit: Yes Status: Acute Qualifiers: Nicotine product type: cigarettes Substance use status: in withdrawal Qualified Code(s): F17.213 - Nicotine dependence, cigarettes, with withdrawal (3) Opioid dependence on agonist therapy Current Visit: Yes Status: Chronic Comment: 90 mg verification pending (4) Alcohol dependence Current Visit: No Status: Active (5) Opioid dependence Current Visit: No Status: Active (6) Klonopin use disorder, mild, abuse Current Visit: No Status: Acute Comment: VALIUM DETOX (7) Methadone maintenance therapy patient Current Visit: No Status: Acute Comment: 90 MG VERIFICATION PENDING (8) Post traumatic stress disorder (PTSD) Current Visit: No Status: Acute Comment: Celexa 20mg poqd Ambien 10mg po qhs Abilify 10mg poqd (9) Sedative, hypnotic or anxiolytic dependence with withdrawal, uncomplicated Current Visit: No Status: Acute (10) Substance induced mood disorder Current Visit: No Status: Acute (11) MDD (major depressive disorder) Current Visit: No Status: Suspected Qualifiers: Major depression recurrence: recurrent Active/Remission status: in partial remission Qualified Code(s): F33.41 - Major depressive disorder, recurrent, in partial remission
--- NOTE | 2017-04-13 13:18 | PN ---
[facility] CIWA - CIWA Score Nausea/Vomitin Muscle Tremors: 3 Anxiety: 3 Agitation: 2 Paroxysmal Sweats: 1-Minimal Palms Moist Orientation: 0-Oriented Tacttile Disturbances: 1-Very Mild Itch/Numbness Auditory Disturbances: 1-Very Mild Visual Disturbances: 1-Very Mild Sensitivity Headache: 2-Mild CIWA-Ar Total Score: 17 BHS Progress Note (SOAP) Subjective: ALERT,IRRITABLE,ANXIOUS,INTERRUPTED SLEEP,TREMOR,PAIN IN THE BODY AND BACK Objective: 04/13/17 13:16 Vital Signs Temperature 98.1 F 04/13/17 09:38 Pulse Rate 65 04/13/17 09:38 Respiratory Rate 18 04/13/17 09:38 Blood Pressure 116/64 04/13/17 09:38 O2 Sat by Pulse Oximetry (%) EKG SINUS BRADYCARDIA 56/MIN NO CHEST PAIN,NO SOB,NO DIZZINESS Laboratory Last Values WBC 5.7 K/mm3 (4.0-10.0) D 04/13/17 07:00 RBC 4.49 M/mm3 (4.00-5.60) 04/13/17 07:00 Hgb 12.9 GM/dL (11.7-16.9) D 04/13/17 07:00 Hct 40.1 % (35.4-49) D 04/13/17 07:00 MCV 89.4 fl (80-96) 04/13/17 07:00 MCHC 32.2 g/dl (32.0-35.9) 04/13/17 07:00 RDW 15.1 % (11.9-15.9) 04/13/17 07:00 Plt Count 189 K/MM3 (134-434) 04/13/17 07:00 MPV 9.2 fl (7.5-11.1) 04/13/17 07:00 Sodium 142 mmol/L (136-145) 04/13/17 07:00 Potassium 4.4 mmol/L (3.5-5.1) 04/13/17 07:00 Chloride 103 mmol/L (98-107) 04/13/17 07:00 Carbon Dioxide 33 mmol/L (21-32) H D 04/13/17 07:00 Anion Gap 6 (8-16) L 04/13/17 07:00 BUN 16 mg/dL (7-18) 04/13/17 07:00 Creatinine 0.7 mg/dL (0.7-1.3) 04/13/17 07:00 Creat Clearance w eGFR > 60 (>60) 04/13/17 07:00 Random Glucose 51 mg/dL (74-106) L D 04/13/17 07:00 Calcium 9.1 mg/dL (8.5-10.1) 04/13/17 07:00 Total Bilirubin 0.4 mg/dL (0.2-1.0) D 04/13/17 07:00 AST 27 U/L (15-37) D 04/13/17 07:00 ALT 37 U/L (12-78) 04/13/17 07:00 Alkaline Phosphatase 106 U/L (45-117) 04/13/17 07:00 Total Protein 6.4 g/dl (6.4-8.2) 04/13/17 07:00 Albumin 3.7 g/dl (3.4-5.0) 04/13/17 07:00 Urine Color Yellow 04/13/17 00:29 Urine Appearance Clear 04/13/17 00:29 Urine pH 6.0 (5.0-8.0) 04/13/17 00:29 Ur Specific [place] 1.015 (1.005-1.025) 04/13/17 00:29 Urine Protein Negative (NEGATIVE) 04/13/17 00:29 Urine Glucose (UA) Negative (NEGATIVE) 04/13/17 00:29 Urine Ketones Negative (NEGATIVE) 04/13/17 00:29 Urine Blood Negative (NEGATIVE) 04/13/17 00:29 Urine Nitrite Negative (NEGATIVE) 04/13/17 00:29 Urine Bilirubin Negative (NEGATIVE) 04/13/17 00:29 Urine Urobilinogen Negative E.U./dl (0.2-1.0) 04/13/17 00:29 Ur Leukocyte Esterase Trace (NEGATIVE) H 04/13/17 00:29 Urine RBC 1 /hpf (0-3) 04/13/17 00:29 Urine WBC 2 /hpf (3-5) 04/13/17 00:29 RPR Titer Nonreactive (NONREACTIVE) 04/13/17 07:00 Assessment: 04/13/17 13:18 WITHDRAWAL SYMPTOM Plan: CONTINUE DETOX
[2017-04-13] MEDS: LIDOCAINE 5% TOPICAL PATCH TP SCH (13:51)
--- NOTE | 2017-04-13 15:51 | EKG ---
Test Reason : Blood Pressure : / mmHG Vent. Rate : 056 BPM Atrial Rate : 056 BPM P-R Int : 162 ms QRS Dur : 100 ms QT Int : 440 ms P-R-T Axes : 065 087 072 degrees QTc Int : 424 ms SINUS BRADYCARDIA OTHERWISE NORMAL ECG WHEN COMPARED WITH ECG OF 14-DEC-2016 18:40, NO SIGNIFICANT CHANGE WAS FOUND Confirmed by ANAID WHEELER MD ([id number]) on 04/13/2017 3:50:59 PM Referred By: Confirmed By:ANAID WHEELER MD
[2017-04-13] MEDS: THIAMINE HCL 100 MG TABLET (FP) PO SCH (22:43)
[2017-04-13] MEDS: LIDOCAINE PATCH REMOVAL MC SCH (22:44)
[2017-04-13] MEDS: diphenhydrAMINE HCL 50 MG CAPSULE PO PRN (22:44)
[2017-04-14] MEDS ORDERED: METHADONE HCL 10 MG TABLET ONE (04:17)
[2017-04-14] MEDS ORDERED: METHADONE HCL 40 MG DISPERSABLE TABLET ONE (04:17)
[2017-04-14] MEDS ORDERED: METHADONE HCL 40 MG DISPERSABLE TABLET PO SCH (06:00)
[2017-04-14] MEDS: METHADONE 80 MG, METHADONE 10 MG PO SCH (06:16)
[2017-04-14] MEDS: diazePAM 5 MG TABLET PO PRN ×3 (06:19→17:26)
[2017-04-14] MEDS: PRENATAL VITAMINS W/ FOLIC ACID TABLET (FP) PO SCH (11:00)
[2017-04-14] MEDS: ARIPiprazole 10 MG TABLET PO SCH (11:01)
[2017-04-14] MEDS: CITALOPRAM HYDROBROMIDE 20 MG TABLET (FP) PO SCH (11:01)
[2017-04-14] MEDS: NICOTINE 14 MG/24 HOURS TOPICAL PATCH TD SCH (11:01)
[2017-04-14] MEDS: diazePAM 5 MG TABLET PO SCH ×2 (11:01→21:17)
[2017-04-14] MEDS: NAPROXEN 500 MG TABLET (FP) PO SCH ×2 (11:03→21:17)
[2017-04-14] MEDS: LIDOCAINE 5% TOPICAL PATCH TP SCH (11:05)
--- NOTE | 2017-04-14 11:44 | PN ---
[facility] CIWA - CIWA Score Nausea/Vomitin Muscle Tremors: 3 Anxiety: 3 Agitation: 2 Paroxysmal Sweats: 1-Minimal Palms Moist Orientation: 0-Oriented Tacttile Disturbances: 1-Very Mild Itch/Numbness Auditory Disturbances: 1-Very Mild Visual Disturbances: 1-Very Mild Sensitivity Headache: 1-Very Mild CIWA-Ar Total Score: 16 S Progress Note (SOAP) Subjective: ALERT,IRRITABLE,ANXIOUS,INTERRUPTED SLEEP,REMOR Objective: 04/14/17 11:42 Vital Signs Temperature 97.5 F L 04/14/17 10:00 Pulse Rate 67 04/14/17 10:00 Respiratory Rate 18 04/14/17 10:00 Blood Pressure 108/73 04/14/17 10:00 O2 Sat by Pulse Oximetry (%) Laboratory Last Values WBC 5.7 K/mm3 (4.0-10.0) D 04/13/17 07:00 RBC 4.49 M/mm3 (4.00-5.60) 04/13/17 07:00 Hgb 12.9 GM/dL (11.7-16.9) D 04/13/17 07:00 Hct 40.1 % (35.4-49) D 04/13/17 07:00 MCV 89.4 fl (80-96) 04/13/17 07:00 MCHC 32.2 g/dl (32.0-35.9) 04/13/17 07:00 RDW 15.1 % (11.9-15.9) 04/13/17 07:00 Plt Count 189 K/MM3 (134-434) 04/13/17 07:00 MPV 9.2 fl (7.5-11.1) 04/13/17 07:00 Sodium 142 mmol/L (136-145) 04/13/17 07:00 Potassium 4.4 mmol/L (3.5-5.1) 04/13/17 07:00 Chloride 103 mmol/L (98-107) 04/13/17 07:00 Carbon Dioxide 33 mmol/L (21-32) H D 04/13/17 07:00 Anion Gap 6 (8-16) L 04/13/17 07:00 BUN 16 mg/dL (7-18) 04/13/17 07:00 Creatinine 0.7 mg/dL (0.7-1.3) 04/13/17 07:00 Creat Clearance w eGFR > 60 (>60) 04/13/17 07:00 Random Glucose 51 mg/dL (74-106) L D 04/13/17 07:00 Calcium 9.1 mg/dL (8.5-10.1) 04/13/17 07:00 Total Bilirubin 0.4 mg/dL (0.2-1.0) D 04/13/17 07:00 AST 27 U/L (15-37) D 04/13/17 07:00 ALT 37 U/L (12-78) 04/13/17 07:00 Alkaline Phosphatase 106 U/L (45-117) 04/13/17 07:00 Total Protein 6.4 g/dl (6.4-8.2) 04/13/17 07:00 Albumin 3.7 g/dl (3.4-5.0) 04/13/17 07:00 Urine Color Yellow 04/13/17 00:29 Urine Appearance Clear 04/13/17 00:29 Urine pH 6.0 (5.0-8.0) 04/13/17 00:29 Ur Specific [place] 1.015 (1.005-1.025) 04/13/17 00:29 Urine Protein Negative (NEGATIVE) 04/13/17 00:29 Urine Glucose (UA) Negative (NEGATIVE) 04/13/17 00:29 Urine Ketones Negative (NEGATIVE) 04/13/17 00:29 Urine Blood Negative (NEGATIVE) 04/13/17 00:29 Urine Nitrite Negative (NEGATIVE) 04/13/17 00:29 Urine Bilirubin Negative (NEGATIVE) 04/13/17 00:29 Urine Urobilinogen Negative E.U./dl (0.2-1.0) 04/13/17 00:29 Ur Leukocyte Esterase Trace (NEGATIVE) H 04/13/17 00:29 Urine RBC 1 /hpf (0-3) 04/13/17 00:29 Urine WBC 2 /hpf (3-5) 04/13/17 00:29 RPR Titer Nonreactive (NONREACTIVE) 04/13/17 07:00 Assessment: 04/14/17 11:43 WITHDRAWAL SYMPTOM Plan: CONTINUE DETOX
[2017-04-14] MEDS: THIAMINE HCL 100 MG TABLET (FP) PO SCH (21:17)
[2017-04-14] MEDS: ZOLPIDEM TARTRATE 10 MG TABLET (PARK CARE ONLY) PO PRN (21:17)
[2017-04-14] MEDS: CYCLOBENZAPRINE HCL 10 MG TABLET (FP) PO PRN (21:17)
[2017-04-14] MEDS: LIDOCAINE PATCH REMOVAL MC SCH (21:20)
[2017-04-15] MEDS ORDERED: METHADONE HCL 10 MG TABLET ONE (05:17)
[2017-04-15] MEDS ORDERED: METHADONE HCL 40 MG DISPERSABLE TABLET ONE (05:17)
[2017-04-15] MEDS: METHADONE 80 MG, METHADONE 10 MG PO SCH (05:49)
[2017-04-15] MEDS: diazePAM 5 MG TABLET PO PRN ×2 (05:53→15:37)
[2017-04-15] MEDS: CITALOPRAM HYDROBROMIDE 20 MG TABLET (FP) PO SCH (10:40)
[2017-04-15] MEDS: PRENATAL VITAMINS W/ FOLIC ACID TABLET (FP) PO SCH (10:40)
[2017-04-15] MEDS: ARIPiprazole 10 MG TABLET PO SCH (10:40)
[2017-04-15] MEDS: diazePAM 5 MG TABLET PO SCH ×2 (10:40→21:43)
[2017-04-15] MEDS: NAPROXEN 500 MG TABLET (FP) PO SCH ×2 (10:40→21:43)
[2017-04-15] MEDS: NICOTINE 14 MG/24 HOURS TOPICAL PATCH TD SCH (10:41)
[2017-04-15] MEDS: LIDOCAINE 5% TOPICAL PATCH TP SCH (10:41)
--- NOTE | 2017-04-15 11:09 | PN ---
S Progress Note (SOAP) Subjective: ALERT,IRRITABLE,ANXIOUS,INTERRUPTED SLEEP,TREMOR Objective: 04/15/17 11:08 Vital Signs Temperature 97.5 F L 04/15/17 10:16 Pulse Rate 82 04/15/17 10:16 Respiratory Rate 16 04/15/17 10:16 Blood Pressure 99/59 04/15/17 10:16 O2 Sat by Pulse Oximetry (%) Assessment: 04/15/17 11:08 WITHDRAWAL SYMPTOM Plan: CONTINUE DETOX,DISCHARGE IN AM
[2017-04-15] MEDS: ZOLPIDEM TARTRATE 10 MG TABLET (PARK CARE ONLY) PO PRN (21:43)
[2017-04-15] MEDS: THIAMINE HCL 100 MG TABLET (FP) PO SCH (21:43)
[2017-04-15] MEDS: CYCLOBENZAPRINE HCL 10 MG TABLET (FP) PO PRN (21:43)
[2017-04-15] MEDS: LIDOCAINE PATCH REMOVAL MC SCH (21:45)
[2017-04-16] MEDS ORDERED: METHADONE HCL 40 MG DISPERSABLE TABLET ONE (04:51)
[2017-04-16] MEDS ORDERED: METHADONE HCL 10 MG TABLET ONE (04:51)
[2017-04-16] MEDS: METHADONE 80 MG, METHADONE 10 MG PO SCH (05:24)
[2017-04-16 05:59] VITALS: BP 104/66; PULSE 66; TEMP 97.5
[2017-04-16] MEDS: NAPROXEN 500 MG TABLET (FP) PO SCH (09:48)
[2017-04-16] MEDS: CYCLOBENZAPRINE HCL 10 MG TABLET (FP) PO PRN (09:48)
[2017-04-16] MEDS: CITALOPRAM HYDROBROMIDE 20 MG TABLET (FP) PO SCH (09:48)
[2017-04-16] MEDS: PRENATAL VITAMINS W/ FOLIC ACID TABLET (FP) PO SCH (09:48)
[2017-04-16] MEDS: ARIPiprazole 10 MG TABLET PO SCH (09:49)
[2017-04-16] MEDS ORDERED: diazePAM 5 MG TABLET PO SCH (10:00)
--- NOTE | 2017-04-16 11:41 | DS ---
[facility] Detox Discharge Summary Admission Date: 04/12/17 Discharge Date: 04/16/17 - History Present History: Alcohol Dependence Additional Comments: ADVISED PATIENT TO FOLLOW-UP WITH WILL CALL ORDER CLERK AFTER DISCHARGE FROM [facility]. Pertinent Past History: Asthma, Hep C, Depression, MMTP. - Physical Exam Results Vital Signs: Vital Signs Temperature 97.5 F L 04/16/17 05:58 Pulse Rate 66 04/16/17 05:58 Respiratory Rate 16 04/16/17 05:58 Blood Pressure 104/66 04/16/17 05:58 O2 Sat by Pulse Oximetry (%) Pertinent Admission Physical Exam Findings: WITHDRAWAL SYMPTOMS. Laboratory Tests 04/13/17 04/13/17 04/13/17 00:29 07:00 07:00 WBC 5.7 D RBC 4.49 Hgb 12.9 D Hct 40.1 D MCV 89.4 MCHC 32.2 RDW 15.1 Plt Count 189 MPV 9.2 Sodium 142 Potassium 4.4 Chloride 103 Carbon Dioxide 33 H D Anion Gap 6 L BUN 16 Creatinine 0.7 Creat Clearance w eGFR > 60 Random Glucose 51 L D Calcium 9.1 Total Bilirubin 0.4 D AST 27 D ALT 37 Alkaline Phosphatase 106 Total Protein 6.4 Albumin 3.7 Urine Color Yellow Urine Appearance Clear Urine pH 6.0 Ur Specific [place] 1.015 Urine Protein Negative Urine Glucose (UA) Negative Urine Ketones Negative Urine Blood Negative Urine Nitrite Negative Urine Bilirubin Negative Urine Urobilinogen Negative Ur Leukocyte Esterase Trace H Urine RBC 1 Urine WBC 2 RPR Titer 04/13/17 07:00 WBC RBC Hgb Hct MCV MCHC RDW Plt Count MPV Sodium Potassium Chloride Carbon Dioxide Anion Gap BUN Creatinine Creat Clearance w eGFR Random Glucose Calcium Total Bilirubin AST ALT Alkaline Phosphatase Total Protein Albumin Urine Color Urine Appearance Urine pH Ur Specific [place] Urine Protein Urine Glucose (UA) Urine Ketones Urine Blood Urine Nitrite Urine Bilirubin Urine Urobilinogen Ur Leukocyte Esterase Urine RBC Urine WBC RPR Titer Nonreactive LABS NOTED. - Treatment Hospital Course: Detox Protocol Followed, Detoxed Safely, Responded well, Discharged Condition Good Patient has Accepted a Rehab Referral to: PATIENT TO GO HOME. 12-STEP/AA/NA OUTPATIENT PROGRAMS RECOMMENDED. 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 (4) Nicotine dependence Status: Chronic Qualifiers: Nicotine product type: cigarettes Substance use status: in withdrawal Qualified Code(s): F17.213 - Nicotine dependence, cigarettes, with withdrawal (5) Post traumatic stress disorder (PTSD) Status: Chronic (6) Sedative, hypnotic or anxiolytic dependence with withdrawal, uncomplicated Status: Acute (7) Substance induced mood disorder Status: Acute (8) Weight loss Status: Acute (9) Chronic back pain Status: Chronic Qualifiers: Back pain location: low back pain Back pain laterality: midline Sciatica presence: without sciatica Qualified Code(s): M54.5 - Low back pain; G89.29 - Other chronic pain (10) Opioid dependence on agonist therapy Status: Chronic (11) MDD (major depressive disorder) Status: Suspected Qualifiers: Major depression recurrence: recurrent Active/Remission status: in partial remission Qualified Code(s): F33.41 - Major depressive disorder, recurrent, in partial remission - AMA Did Patient Leave Against Medical Advice: No
== END 2017-04-16 10:00 | disposition home or self-care (01) | DRG 773 ==
LOC: YASAS 13:02 → Y6N 17:10
PROVIDERS: ADMIT Internal Medicine; ATTEND Internal Medicine
PROC: HZ2ZZZZ Detoxification Services for Substance Abuse Treatment (ICD-10-PCS; principal; 2017-04-16)
DX: F11.20 Opioid dependence, uncomplicated (principal); F13.230 Sedative, hypnotic or anxiolytic dependence with withdrawal, uncomplicated; F17.213 Nicotine dependence, cigarettes, with withdrawal; F19.24 Other psychoactive substance dependence with psychoactive substance-induced mood disorder; F33.41 Major depressive disorder, recurrent, in partial remission; F43.10 Post-traumatic stress disorder, unspecified; B18.2 Chronic viral hepatitis C; M54.5 Low back pain; G89.29 Other chronic pain; R63.4 Abnormal weight loss; Z68.21 Body mass index [BMI] 21.0-21.9, adult
CPT/HCPCS: 36415; 80053; 81003; 81015; 85027; 86593; 93005; 93010

== ENCOUNTER 2017-05-31 14:15 | Inpatient (IN) | payer OTHER ==
[2017-05-31 16:06] VITALS: BMI 18.4
--- NOTE | 2017-05-31 17:46 | HP ---
CIWA Score - CIWA Score Nausea/Vomitin-Mild Nausea/No Vomiting Muscle Tremors: 4-Moderate,w/Arms Extend Anxiety: 4-Mod. Anxious/Guarded Agitation: 3 Paroxysmal Sweats: 3 Orientation: 2-Disoriented Date<2 days Tacttile Disturbances: 0-None Auditory Disturbances: 0-None Visual Disturbances: 0-None Headache: 2-Mild CIWA-Ar Total Score: 19 Admission ROS BHS - HPI Chief Complaint: Withdrawal sx. Allergies/Adverse Reactions: Allergies Allergy/AdvReac Type Severity Reaction Status Date / Time No Known Allergies Allergy Verified 05/31/17 16:59 History of Present Illness: 47 y/o man with a long hx. of drug dependence is admitted for detox.Pt. has been in previous detox,denies significant period drug free. Exam Limitations: No Limitations - Ebola screening Have you traveled outside of the country in the last 21 days: No Have you had contact with anyone from an Ebola affected area: No Have you been sick,other than usual withdrawal symptoms: No Do you have a fever: No - Review of Systems Constitutional: Diaphoresis EENT: reports: No Symptoms Reported Respiratory: reports: No Symptoms reported Cardiac: reports: No Symptoms Reported GI: reports: Nausea, Abdominal cramping : reports: No Symptoms Reported Musculoskeletal: reports: Back Pain Integumentary: reports: Sweating Neuro: reports: Headache, Tremors Endocrine: reports: No Symptoms Reported Hematology: reports: No Symptoms Reported Psychiatric: reports: No Sypmtoms Reported Other Systems: Reviewed and Negative Patient History - Patient Medical History Hx Anemia: No Hx Asthma: Yes Hx Chronic Obstructive Pulmonary Disease (COPD): No Hx Cancer: No Hx Cardiac Disorders: No Hx Congestive Heart Failure: No Hx Hypertension: No Hx Hypercholesterolemia: No Hx Pacemaker: No HX Cerebrovascular Accident: No Hx Seizures: No Hx Dementia: No Hx Diabetes: No Hx Gastrointestinal Disorders: Yes Hx Liver Disease: Yes Hx Genitourinary Disorders: No Hx Sexually Transmitted Disorders: No Hx Renal Disease (ESRD): No Hx Thyroid Disease: No Hx Human Immunodeficiency Virus (HIV): No Hx Hepatitis C: Yes Hx Depression: Yes Hx Suicide Attempt: Yes (CUTTING THE WRIST) Hx Bipolar Disorder: No Hx Schizophrenia: No - Patient Surgical History Past Surgical History: Yes Hx Neurologic Surgery: No Hx Cataract Extraction: No Hx Cardiac Surgery: No Hx Lung Surgery: No Hx Breast Surgery: No Hx Breast Biopsy: No Hx Abdominal Surgery: No Hx Appendectomy: No Hx Cholecystectomy: No Hx Genitourinary Surgery: No Hx Section: No Hx Orthopedic Surgery: No Other Surgical History: LITHOTRIPSY 2006 Anesthesia Reaction: No - PPD History Previous Implant?: Yes Documented Results: Negative w/o proof Implanted On Prior [facility] Admission?: Yes Date: 05/19/16 Results: 0 mm PPD to be Administered?: Yes - Smoking Cessation Smoking history: Current every day smoker Have you smoked in the past 12 months: Yes Aproximately how many cigarettes per day: 20 Cigars Per Day: 0 Hx Chewing Tobacco Use: No Initiated information on smoking cessation: Yes 'Breaking Loose' booklet given: 05/31/17 - Substance & Tx. History Hx Alcohol Use: Yes Hx Substance Use: Yes Substance Use Type: Alcohol, Cocaine, Tranquilizers Hx Substance Use Treatment: Yes (otp current and detox most recent 03/2017) - Substances Abused Alcohol Route: Oral Frequency: Daily Amount used: Rum 2 PINTS Age of first use: 10 Date of Last Use: 05/29/17 Cocaine Route: Smoking Frequency: 3-6 times per week Amount used: 10BAGS Age of first use: 11 Date of Last Use: 05/29/17 Alprazolam (Xanax) Route: Oral Frequency: 1-2 times per week Amount used: 1 STICK Age of first use: 16 Date of Last Use: 05/26/17 Heroin Route: Injection Frequency: Daily Amount used: 1 BAG Age of first use: 29 Date of Last Use: 05/28/17 Benzodiazepine (Klonopin) Route: Oral Frequency: Daily Amount used: 4 MG Age of first use: 42 Date of Last Use: 05/31/17 Marijuana/Hashish Route: Smoking Frequency: Daily Amount used: 1 JOINT Age of first use: 15 Date of Last Use: 05/29/17 Family Disease History - Family Disease History Family Disease History: Heart Disease: Father (HTN,MIdeceased mva), Mother (HTN, AF), Other: Grandparent (CVA), Father Admission Physical Exam BHS - Vital Signs Vital Signs: Vital Signs - 24 hr 05/31/17 16:05 Temperature 96.4 F L Pulse Rate 68 Respiratory 20 Rate Blood Pressure 90/55 - Physical General Appearance: Yes: Tremorous, Irritable, Sweating, Anxious HEENTM: Yes: Within Normal Limits Respiratory: Yes: Chest Non-Tender, Wheezing (mild expiratory wheezing) Neck: Yes: Supple Breast: Yes: Breast Exam Deferred Cardiology: Yes: Regular Rhythm, Regular Rate, S1, S2 Abdominal: Yes: Normal Bowel Sounds, Non Tender, Soft Genitourinary: Yes: Within Normal Limits Back: Yes: Within Normal Limits Musculoskeletal: Yes: Within Normal Limits Extremities: Yes: Tremors Neurological: Yes: Fully Oriented, Alert Integumentary: Yes: Diaphoresis Lymphatic: Yes: Within Normal Limits - Diagnostic (1) Alcohol dependence with uncomplicated withdrawal Current Visit: Yes Status: Acute (2) COPD (chronic obstructive pulmonary disease) Current Visit: Yes Status: Acute (3) Sedative, hypnotic or anxiolytic dependence with withdrawal, uncomplicated Current Visit: Yes Status: Acute (4) Cocaine dependence Current Visit: Yes Status: Chronic Qualifiers: Substance use status: uncomplicated Qualified Code(s): F14.20 - Cocaine dependence, uncomplicated (5) Opioid dependence on agonist therapy Current Visit: Yes Status: Chronic Comment: 90 mg verification pending [facility] Breath Alcohol Content Breath Alcohol Content: 0 Urine Drug Screen - Results Drug Screen Negative: No Urine Drug Screen Results: PCP-Phencyclidine, MTD-Methadone
[2017-05-31] MEDS ORDERED: IBUPROFEN 400 MG TABLET (FP) PO PRN (17:53)
[2017-05-31] MEDS ORDERED: MAGNESIUM HYDROX 2400MG/30ML ORAL SUSPENSION 30 ML CUP PO PRN (17:53)
[2017-05-31] MEDS ORDERED: hydrOXYzine PAMOATE 50 MG CAPSULE (FP) PO PRN (17:53)
[2017-05-31] MEDS ORDERED: ACETAMINOPHEN 325 MG TABLET (FP) PO PRN (17:53)
[2017-05-31] MEDS ORDERED: P-EPHED 60MG/TRIPROLIDI 2.5MG TABLET PO PRN (17:53)
[2017-05-31] MEDS ORDERED: MENTHOL/PHENOL 1 EACH UD MM PRN (17:53)
[2017-05-31] MEDS ORDERED: LOPERAMIDE HCL 2 MG CAPSULE PO PRN (17:53)
[2017-05-31] MEDS ORDERED: NICOTINE POLACRILEX 2 MG GUM BC PRN (17:53)
[2017-05-31] MEDS ORDERED: MAG HYDROX/AL HYDROX/SIMETH 30 ML UNIT-DOSE CUP PO PRN (17:53)
[2017-05-31] MEDS ORDERED: guaiFENesin/D-METHORPHAN HB 10 ML UNIT-DOSE CUPS PO PRN (17:53)
[2017-05-31] MEDS ORDERED: diphenhydrAMINE HCL 50 MG CAPSULE PO PRN (17:53)
[2017-05-31] MEDS ORDERED: MAGNESIUM CITRATE 300 ML BOTTLE PO PRN (17:53)
[2017-05-31] MEDS ORDERED: ALBUTEROL SO4 6.7 GM HFA INHALER IH PRN (17:55)
[2017-05-31] MEDS ORDERED: ALBUTEROL SO4 2.5/IPRATROPIUM 0.5 INH SOL 3 ML VIAL.NEB. NEB PRN (17:57)
[2017-05-31] MEDS: ALBUTEROL SO4 2.5/IPRATROPIUM 0.5 INH SOL 3 ML VIAL.NEB. NEB SCH (18:28)
[2017-05-31] MEDS: NICOTINE 21 MG/24 HOURS TOPICAL PATCH TD SCH (18:28)
[2017-05-31] MEDS ORDERED: diazePAM 5 MG TABLET PO ONE (18:30)
[2017-05-31 21:15] LABS: URINE APPEARANCE CLEAR; URINE BILIRUBIN NEGATIVE (NEGATIVE); URINE BLOOD NEGATIVE (NEGATIVE); URINE COLOR LTYELLOW; URINE GLUCOSE (UA) NEGATIVE (NEGATIVE); URINE KETONE NEGATIVE (NEGATIVE); URINE LEUK ESTERASE NEGATIVE (NEGATIVE); URINE NITRITE NEGATIVE (NEGATIVE); URINE PROTEIN NEGATIVE (NEGATIVE); URINE UROBILINOGEN NEGATIVE mg/dL (0.2-1.0)
[2017-05-31] MEDS: THIAMINE HCL 100 MG TABLET (FP) PO SCH (22:22)
[2017-05-31] MEDS: diazePAM 5 MG TABLET PO SCH (22:22)
[2017-06-01] MEDS: diazePAM 5 MG TABLET PO SCH ×3 (06:26→22:25)
--- NOTE | 2017-06-01 08:53 | PN ---
S CIWA - CIWA Score Nausea/Vomitin-Mild Nausea/No Vomiting Muscle Tremors: 4-Moderate,w/Arms Extend Anxiety: 4-Mod. Anxious/Guarded Agitation: 4-Moderately Restless Paroxysmal Sweats: 3 Orientation: 0-Oriented Tacttile Disturbances: 0-None Auditory Disturbances: 0-None Visual Disturbances: 0-None Headache: 0-None Present CIWA-Ar Total Score: 16 BHS Progress Note (SOAP) Subjective: Anxiety,tremors,sweating,interrupted sleep,restless Objective: 06/01/17 08:52 Vital Signs - 8 hr 06/01/17 06/01/17 04:17 06:40 Temperature 96.5 F L Pulse Rate 50 L Respiratory 18 16 Rate Blood Pressure 119/71 Laboratory Tests 05/31/17 16:00 Urine Color Ltyellow Urine Appearance Clear Urine pH 7.0 Ur Specific [place] 1.020 Urine Protein Negative Urine Glucose (UA) Negative Urine Ketones Negative Urine Blood Negative Urine Nitrite Negative Urine Bilirubin Negative Urine Urobilinogen Negative Ur Leukocyte Esterase Negative Assessment: 06/01/17 08:53 Withdrawal sx. Plan: Continue detox
[2017-06-01] MEDS: diazePAM 5 MG TABLET PO PRN ×2 (08:55→17:43)
[2017-06-01] MEDS ORDERED: METHADONE HCL 10 MG TABLET PO SCH (09:00)
[2017-06-01] MEDS ORDERED: METHADONE HCL 40 MG DISPERSABLE TABLET ONE (09:11)
[2017-06-01] MEDS ORDERED: METHADONE HCL 10 MG TABLET ONE (09:11)
[2017-06-01] MEDS: METHADONE 80 MG, METHADONE 10 MG PO SCH (09:14)
[2017-06-01] MEDS: ALBUTEROL SO4 2.5/IPRATROPIUM 0.5 INH SOL 3 ML VIAL.NEB. NEB SCH ×4 (09:15→22:00)
[2017-06-01] MEDS: NICOTINE 21 MG/24 HOURS TOPICAL PATCH TD SCH (09:15)
--- NOTE | 2017-06-01 09:18 | CONSULT ---
[facility] Psychiatric Consult - Data Date of interview: 06/01/17 Admission source: [facility] Identifying data: This is 47 years old male with history of MDD, PTSD, history of psychiatic hospitalization, intoxicated with: Alcohol, Opiuoids, Cannabis, Xanax and Nicotine Substance Abuse History: - Smoking Cessation. Smoking history: Current every day smoker. Have you smoked in the past 12 months: Yes. Aproximately how many cigarettes per day: 20. Cigars Per Day: 0. Hx Chewing Tobacco Use: No. Initiated information on smoking cessation: Yes. 'Breaking Loose' booklet given : 05/31/17. - Substance & Tx. History. Hx Alcohol Use: Yes. Hx Substance Use : Yes. Substance Use Type: Alcohol, Cocaine, Tranquilizers. Hx Substance Use Treatment: Yes (otp current and detox most recent 03/2017). - Substances Abused. Alcohol. Route: Oral. Frequency: Daily. Amount used: Rum 2 PINTS. Age of first use: 10. Date of Last Use: 05/29/17. Cocaine. Route: Smoking. Frequency: 3-6 times per week. Amount used: 10BAGS. Age of first use : 11. Date of Last Use: 05/29/17. Alprazolam (Xanax). Route: Oral. Frequency: 1-2 times per week. Amount used: 1 STICK. Age of first use: 16. Date of Last Use: 05/26/17. Heroin. Route: Injection. Frequency: Daily. Amount used: 1 BAG. Age of first use: 29. Date of Last Use: 05/28/17. Benzodiazepine (Klonopin). Route: Oral. Frequency: Daily. Amount used: 4 MG. Age of first use: 42. Date of Last Use: 05/31/17. Marijuana/Hashish. Route: Smoking. Frequency: Daily. Amount used: 1 JOINT. Age of first use: 15. Date of Last Use: 05/29/17 Medical History: History of NC, HepC+, COPD, Weight loss, LBP, MMTP 90mg /day Psychiatric History: Patien reprots history of MDD withy most recent psychiatric [id number] on more then 10 years ago, reports currently taking: Celexa 20mg poqd. Abilify 10mg poqd. Gabapentin 200mg bid. Ambien 10mg po qhs. Denies suicidal history Physical/Sexual Abuse/Trauma History: Denies Additional Comment: Celexa 20mg poqd. Abilify 10mg poqd. Gabapentin 200mg bid. Ambien 10mg po qhs Mental Status Exam - Mental Status Exam Alert and Oriented to: Person Cognitive Function: Fair Patient Appearance: Unkempt Mood: Sad Affect: Flat Patient Behavior: Sedated Speech Pattern: Delayed Voice Loudness: Normal Thought Process: Goal Oriented Thought Disorder: Being Controlled Hallucinations: Denies Suicidal Ideation: Denies Homicidal Ideation: Denies Insight/Judgement: Fair Sleep: Difficulty falling asleep Appetite: Weight gain Muscle strength/Tone: Mild Hypotonicity Gait/Station: Shuffling Additional Comments: Celexa 20mg poqd. Abilify 10mg poqd. Gabapentin 200mg bid. Ambien 10mg po qhs Psychiatric Findings - Problem List ([place] 1, 2,3) (1) Alcohol dependence with uncomplicated withdrawal Current Visit: Yes Status: Acute (2) Sedative, hypnotic or anxiolytic dependence with withdrawal, uncomplicated Current Visit: Yes Status: Acute (3) Cocaine dependence Current Visit: Yes Status: Chronic Qualifiers: Substance use status: uncomplicated Qualified Code(s): F14.20 - Cocaine dependence, uncomplicated (4) Opioid dependence on agonist therapy Current Visit: Yes Status: Chronic Comment: 90 mg verification pending (5) Alcohol dependence Current Visit: No Status: Active (6) Opioid dependence Current Visit: No Status: Active (7) Sedative dependence Current Visit: No Status: Active (8) Klonopin use disorder, mild, abuse Current Visit: No Status: Acute Comment: VALIUM DETOX (9) Cannabis dependence Current Visit: No Status: Chronic (10) Methadone maintenance therapy patient Current Visit: No Status: Chronic Comment: 90 MG VERIFICATION PENDING (11) Post traumatic stress disorder (PTSD) Current Visit: No Status: Chronic Comment: Celexa 20mg poqd Ambien 10mg po qhs Abilify 10mg poqd (12) MDD (major depressive disorder) Current Visit: No Status: Suspected Qualifiers: Major depression recurrence: recurrent Active/Remission status: in partial remission Qualified Code(s): F33.41 - Major depressive disorder, recurrent, in partial remission - Initial Treatment Plan Initial Treatment Plan: Celexa 20mg poqd. Abilify 10mg poqd. Gabapentin 200mg bid. Ambien 10mg po qhs
[2017-06-01 10:07] LABS: MCH 28.1 pg (25.7-33.7); MCHC 31.7 g/dl (32.0-35.9); MEAN CELL VOLUME 88.7 fl (80-96); PLATELET COUNT 213 K/MM3 (134-434); RDW 15.2 % (11.9-15.9); WHITE BLOOD COUNT 6.9 K/mm3 (4.0-10.0)
[2017-06-01 10:27] LABS: ALBUMIN 3.6 g/dl (3.4-5.0); ALK PHOS 93 U/L (45-117); ANION GAP 6 (8-16); BILIRUBIN,TOTAL 0.3 mg/dL (0.2-1.0); CALCIUM 8.9 mg/dL (8.5-10.1); CO2 31 mmol/L (21-32); CREATININE 0.8 mg/dL (0.7-1.3); GLUCOSE,RANDOM 110 mg/dL (74-106); SGOT/AST 27 U/L (15-37); SGPT/ALT 39 U/L (12-78); TOT PROT 6.8 g/dl (6.4-8.2)
[2017-06-01] MEDS: PRENATAL VITAMINS W/ FOLIC ACID TABLET (FP) PO SCH (10:38)
[2017-06-01] MEDS: ARIPiprazole 10 MG TABLET PO SCH (10:39)
[2017-06-01] MEDS: CITALOPRAM HYDROBROMIDE 20 MG TABLET (FP) PO SCH (10:40)
[2017-06-01] MEDS: GABAPENTIN 100 MG CAPSULE (FP) PO SCH ×2 (10:41→22:25)
[2017-06-01] MEDS ORDERED: GABAPENTIN 100 MG CAPSULE (FP) PO SCH (14:00)
[2017-06-01] MEDS: NAPROXEN 500 MG TABLET (FP) PO SCH ×2 (14:17→22:25)
--- NOTE | 2017-06-01 15:38 | EKG ---
Test Reason : Blood Pressure : / mmHG Vent. Rate : 046 BPM Atrial Rate : 046 BPM P-R Int : 160 ms QRS Dur : 096 ms QT Int : 456 ms P-R-T Axes : 073 084 071 degrees QTc Int : 399 ms SINUS BRADYCARDIA EARLY REPOLARIZATION OTHERWISE NORMAL ECG WHEN COMPARED WITH ECG OF 12-APR-2017 17:19, NO SIGNIFICANT CHANGE WAS FOUND Confirmed by ANAID WHEELER MD ([id number]) on 06/01/2017 3:38:33 PM Referred By: Te Hickey Confirmed By:ANAID WHEELER MD
[2017-06-01] MEDS: THIAMINE HCL 100 MG TABLET (FP) PO SCH (22:25)
[2017-06-01] MEDS: ZOLPIDEM TARTRATE 10 MG TABLET (PARK CARE ONLY) PO PRN (22:27)
[2017-06-02] MEDS ORDERED: METHADONE HCL 10 MG TABLET ONE (04:48)
[2017-06-02] MEDS ORDERED: METHADONE HCL 40 MG DISPERSABLE TABLET ONE (04:48)
[2017-06-02] MEDS: METHADONE 80 MG, METHADONE 10 MG PO SCH (05:33)
[2017-06-02] MEDS: diazePAM 5 MG TABLET PO PRN ×3 (05:33→20:18)
[2017-06-02] MEDS: NAPROXEN 500 MG TABLET (FP) PO SCH ×2 (10:22→22:10)
[2017-06-02] MEDS: ARIPiprazole 10 MG TABLET PO SCH (10:22)
[2017-06-02] MEDS: CITALOPRAM HYDROBROMIDE 20 MG TABLET (FP) PO SCH (10:22)
[2017-06-02] MEDS: GABAPENTIN 100 MG CAPSULE (FP) PO SCH ×2 (10:22→22:10)
[2017-06-02] MEDS: NICOTINE 21 MG/24 HOURS TOPICAL PATCH TD SCH (10:22)
[2017-06-02] MEDS: diazePAM 5 MG TABLET PO SCH ×2 (10:22→22:09)
[2017-06-02] MEDS: PRENATAL VITAMINS W/ FOLIC ACID TABLET (FP) PO SCH (10:22)
[2017-06-02] MEDS: ALBUTEROL SO4 2.5/IPRATROPIUM 0.5 INH SOL 3 ML VIAL.NEB. NEB SCH ×2 (10:30→14:15)
--- NOTE | 2017-06-02 11:54 | PN ---
S CIWA - CIWA Score Nausea/Vomitin-Int. Nausea w/Dry Heave Muscle Tremors: 3 Anxiety: 4-Mod. Anxious/Guarded Agitation: 3 Paroxysmal Sweats: 3 Orientation: 0-Oriented Tacttile Disturbances: 0-None Auditory Disturbances: 0-None Visual Disturbances: 0-None Headache: 3-Moderate CIWA-Ar Total Score: 20 BHS Progress Note (SOAP) Subjective: Sweating, Chills, Tremors, Stomach Cramping, H/A, Diarrhea. Objective: PT. A & O X 3, OBSERVED AMBULATING ON UNIT. NO ACUTE DISTRESS. 06/02/17 11:52 Vital Signs Temperature 96.8 F L 06/02/17 10:40 Pulse Rate 56 L 06/02/17 10:40 Respiratory Rate 18 06/02/17 10:40 Blood Pressure 105/69 06/02/17 10:40 O2 Sat by Pulse Oximetry (%) Laboratory Tests 05/31/17 06/01/17 06/01/17 16:00 07:00 07:00 WBC 6.9 RBC 4.23 Hgb 11.9 Hct 37.5 MCV 88.7 MCH 28.1 MCHC 31.7 L RDW 15.2 Plt Count 213 MPV 9.0 Sodium 138 Potassium 4.4 Chloride 101 Carbon Dioxide 31 Anion Gap 6 L BUN 17 Creatinine 0.8 Creat Clearance w eGFR > 60 Random Glucose 110 H D Calcium 8.9 Total Bilirubin 0.3 D AST 27 ALT 39 Alkaline Phosphatase 93 Total Protein 6.8 Albumin 3.6 Urine Color Ltyellow Urine Appearance Clear Urine pH 7.0 Ur Specific [place] 1.020 Urine Protein Negative Urine Glucose (UA) Negative Urine Ketones Negative Urine Blood Negative Urine Nitrite Negative Urine Bilirubin Negative Urine Urobilinogen Negative Ur Leukocyte Esterase Negative RPR Titer 06/01/17 07:00 WBC RBC Hgb Hct MCV MCH MCHC RDW Plt Count MPV Sodium Potassium Chloride Carbon Dioxide Anion Gap BUN Creatinine Creat Clearance w eGFR Random Glucose Calcium Total Bilirubin AST ALT Alkaline Phosphatase Total Protein Albumin Urine Color Urine Appearance Urine pH Ur Specific [place] Urine Protein Urine Glucose (UA) Urine Ketones Urine Blood Urine Nitrite Urine Bilirubin Urine Urobilinogen Ur Leukocyte Esterase RPR Titer Nonreactive LABS NOTED. Assessment: 06/02/17 11:52 WITHDRAWAL SYMPTOMS. Plan: CONTINUE DETOX. PRN IMMMODIUM FOR DIARRHEA.
[2017-06-02] MEDS: THIAMINE HCL 100 MG TABLET (FP) PO SCH (22:09)
[2017-06-02] MEDS: ZOLPIDEM TARTRATE 10 MG TABLET (PARK CARE ONLY) PO PRN (22:10)
[2017-06-03] MEDS ORDERED: METHADONE HCL 40 MG DISPERSABLE TABLET ONE (03:29)
[2017-06-03] MEDS ORDERED: METHADONE HCL 10 MG TABLET ONE (03:29)
[2017-06-03] MEDS: diazePAM 5 MG TABLET PO PRN ×2 (05:47→12:01)
[2017-06-03] MEDS: METHADONE 80 MG, METHADONE 10 MG PO SCH (05:47)
[2017-06-03] MEDS: CITALOPRAM HYDROBROMIDE 20 MG TABLET (FP) PO SCH (10:14)
[2017-06-03] MEDS: diazePAM 5 MG TABLET PO SCH ×2 (10:14→22:16)
[2017-06-03] MEDS: ARIPiprazole 10 MG TABLET PO SCH (10:14)
[2017-06-03] MEDS: PRENATAL VITAMINS W/ FOLIC ACID TABLET (FP) PO SCH (10:14)
[2017-06-03] MEDS: NAPROXEN 500 MG TABLET (FP) PO SCH ×2 (10:14→22:16)
[2017-06-03] MEDS: NICOTINE 21 MG/24 HOURS TOPICAL PATCH TD SCH (10:14)
[2017-06-03] MEDS: GABAPENTIN 100 MG CAPSULE (FP) PO SCH ×2 (10:14→22:16)
[2017-06-03] MEDS: ALBUTEROL SO4 2.5/IPRATROPIUM 0.5 INH SOL 3 ML VIAL.NEB. NEB SCH (12:04)
--- NOTE | 2017-06-03 14:46 | PN ---
BHS Progress Note (SOAP) Subjective: Interrupted Sleep, Tremors, Nausea, Diarrhea, Sweating. Objective: PT. A & O X 3. NO ACUTE DISTRESS. 06/03/17 14:44 Vital Signs Temperature 98.1 F 06/03/17 13:53 Pulse Rate 60 06/03/17 13:53 Respiratory Rate 18 06/03/17 13:53 Blood Pressure 106/69 06/03/17 13:53 O2 Sat by Pulse Oximetry (%) Laboratory Tests 05/31/17 06/01/17 06/01/17 16:00 07:00 07:00 WBC 6.9 RBC 4.23 Hgb 11.9 Hct 37.5 MCV 88.7 MCH 28.1 MCHC 31.7 L RDW 15.2 Plt Count 213 MPV 9.0 Sodium 138 Potassium 4.4 Chloride 101 Carbon Dioxide 31 Anion Gap 6 L BUN 17 Creatinine 0.8 Creat Clearance w eGFR > 60 Random Glucose 110 H D Calcium 8.9 Total Bilirubin 0.3 D AST 27 ALT 39 Alkaline Phosphatase 93 Total Protein 6.8 Albumin 3.6 Urine Color Ltyellow Urine Appearance Clear Urine pH 7.0 Ur Specific [place] 1.020 Urine Protein Negative Urine Glucose (UA) Negative Urine Ketones Negative Urine Blood Negative Urine Nitrite Negative Urine Bilirubin Negative Urine Urobilinogen Negative Ur Leukocyte Esterase Negative RPR Titer 06/01/17 07:00 WBC RBC Hgb Hct MCV MCH MCHC RDW Plt Count MPV Sodium Potassium Chloride Carbon Dioxide Anion Gap BUN Creatinine Creat Clearance w eGFR Random Glucose Calcium Total Bilirubin AST ALT Alkaline Phosphatase Total Protein Albumin Urine Color Urine Appearance Urine pH Ur Specific [place] Urine Protein Urine Glucose (UA) Urine Ketones Urine Blood Urine Nitrite Urine Bilirubin Urine Urobilinogen Ur Leukocyte Esterase RPR Titer Nonreactive LABS NOTED. Assessment: 06/03/17 14:44 WITHDRAWAL SYMPTOMS. Plan: CONTINUE DETOX.
[2017-06-03] MEDS: ZOLPIDEM TARTRATE 10 MG TABLET (PARK CARE ONLY) PO PRN (22:16)
[2017-06-03] MEDS: THIAMINE HCL 100 MG TABLET (FP) PO SCH (22:16)
[2017-06-04] MEDS ORDERED: METHADONE HCL 10 MG TABLET ONE (04:48)
[2017-06-04] MEDS ORDERED: METHADONE HCL 40 MG DISPERSABLE TABLET ONE (04:49)
[2017-06-04] MEDS: METHADONE 80 MG, METHADONE 10 MG PO SCH (06:09)
[2017-06-04 07:12] VITALS: BP 121/78; PULSE 54; TEMP 97
[2017-06-04] MEDS: CITALOPRAM HYDROBROMIDE 20 MG TABLET (FP) PO SCH (09:07)
[2017-06-04] MEDS: GABAPENTIN 100 MG CAPSULE (FP) PO SCH (09:07)
[2017-06-04] MEDS: NAPROXEN 500 MG TABLET (FP) PO SCH (09:07)
[2017-06-04] MEDS: ARIPiprazole 10 MG TABLET PO SCH (09:11)
[2017-06-04] MEDS: PRENATAL VITAMINS W/ FOLIC ACID TABLET (FP) PO SCH (09:39)
[2017-06-04] MEDS: ALBUTEROL SO4 2.5/IPRATROPIUM 0.5 INH SOL 3 ML VIAL.NEB. NEB SCH (09:39)
[2017-06-04] MEDS: NICOTINE 21 MG/24 HOURS TOPICAL PATCH TD SCH (09:39)
[2017-06-04] MEDS ORDERED: diazePAM 5 MG TABLET PO SCH (10:00)
--- NOTE | 2017-06-04 12:25 | DS ---
[facility] Detox Discharge Summary Admission Date: 05/31/17 Discharge Date: 06/04/17 - History Present History: Alcohol Dependence, Cannabis Dependence, Cocaine Dependence, Sedative Dependence, MMTP Pertinent Past History: Asthma Hepatitis C GERD - Physical Exam Results Vital Signs: Vital Signs Temperature 97.0 F L 06/04/17 07:10 Pulse Rate 54 L 06/04/17 07:10 Respiratory Rate 18 06/04/17 07:10 Blood Pressure 121/78 06/04/17 07:10 O2 Sat by Pulse Oximetry (%) Pertinent Admission Physical Exam Findings: Withdrawal symptoms Laboratory Tests 05/31/17 06/01/17 06/01/17 16:00 07:00 07:00 WBC 6.9 RBC 4.23 Hgb 11.9 Hct 37.5 MCV 88.7 MCH 28.1 MCHC 31.7 L RDW 15.2 Plt Count 213 MPV 9.0 Sodium 138 Potassium 4.4 Chloride 101 Carbon Dioxide 31 Anion Gap 6 L BUN 17 Creatinine 0.8 Creat Clearance w eGFR > 60 Random Glucose 110 H D Calcium 8.9 Total Bilirubin 0.3 D AST 27 ALT 39 Alkaline Phosphatase 93 Total Protein 6.8 Albumin 3.6 Urine Color Ltyellow Urine Appearance Clear Urine pH 7.0 Ur Specific [place] 1.020 Urine Protein Negative Urine Glucose (UA) Negative Urine Ketones Negative Urine Blood Negative Urine Nitrite Negative Urine Bilirubin Negative Urine Urobilinogen Negative Ur Leukocyte Esterase Negative RPR Titer 06/01/17 07:00 WBC RBC Hgb Hct MCV MCH MCHC RDW Plt Count MPV Sodium Potassium Chloride Carbon Dioxide Anion Gap BUN Creatinine Creat Clearance w eGFR Random Glucose Calcium Total Bilirubin AST ALT Alkaline Phosphatase Total Protein Albumin Urine Color Urine Appearance Urine pH Ur Specific [place] Urine Protein Urine Glucose (UA) Urine Ketones Urine Blood Urine Nitrite Urine Bilirubin Urine Urobilinogen Ur Leukocyte Esterase RPR Titer Nonreactive Labs noted - Treatment Hospital Course: Detox Protocol Followed, Detoxed Safely, Responded well, Discharged Condition Good - Medication Discharge Medications: Ambulatory Orders Albuterol Sulfate Inhaler - [Ventolin Hfa Inhaler -] 2 inh PO Q4H PRN 12/14/16 Aripiprazole [Abilify -] 10 mg PO DAILY #30 tablet 04/13/17 Citalopram Hydrobromide [Celexa -] 20 mg PO DAILY #30 tablet 04/13/17 Gabapentin [Neurontin] 200 mg PO TID 05/31/17 Aripiprazole [Abilify -] 10 mg PO DAILY #30 tablet 06/01/17 Citalopram Hydrobromide [Celexa -] 20 mg PO DAILY #30 tab 06/01/17 Gabapentin [Neurontin -] 200 mg PO BID #60 cap 06/01/17 Methadone 90 mg PO DAILY 06/01/17 - Diagnosis (1) Alcohol dependence with uncomplicated withdrawal Status: Acute (2) Sedative, hypnotic or anxiolytic dependence with withdrawal, uncomplicated Status: Acute (3) Cocaine dependence Status: Chronic Qualifiers: Substance use status: uncomplicated Qualified Code(s): F14.20 - Cocaine dependence, uncomplicated (4) Methadone maintenance therapy patient Status: Chronic (5) Nicotine dependence Status: Chronic Qualifiers: Nicotine product type: cigarettes Substance use status: in withdrawal Qualified Code(s): F17.213 - Nicotine dependence, cigarettes, with withdrawal (6) MDD (major depressive disorder) Status: Chronic Qualifiers: Major depression recurrence: recurrent Active/Remission status: in partial remission Qualified Code(s): F33.41 - Major depressive disorder, recurrent, in partial remission (7) Asthma Status: Chronic (8) Hepatitis C Status: Chronic (9) GERD (gastroesophageal reflux disease) Status: Chronic - AMA Did Patient Leave Against Medical Advice: No
== END 2017-06-04 09:40 | disposition home or self-care (01) | DRG 773 ==
LOC: YASAS 14:15 → Y3N 18:00
PROVIDERS: ADMIT Internal Medicine; ATTEND Internal Medicine
PROC: HZ2ZZZZ Detoxification Services for Substance Abuse Treatment (ICD-10-PCS; principal; 2017-05-31)
DX: F13.230 Sedative, hypnotic or anxiolytic dependence with withdrawal, uncomplicated (principal); F11.20 Opioid dependence, uncomplicated; F10.230 Alcohol dependence with withdrawal, uncomplicated; F14.20 Cocaine dependence, uncomplicated; F17.210 Nicotine dependence, cigarettes, uncomplicated; F33.9 Major depressive disorder, recurrent, unspecified; F43.10 Post-traumatic stress disorder, unspecified; J45.909 Unspecified asthma, uncomplicated; B18.2 Chronic viral hepatitis C; K21.9 Gastro-esophageal reflux disease without esophagitis; I25.2 Old myocardial infarction; Z91.5 Personal history of self-harm
CPT/HCPCS: 36415; 80053; 81003; 85027; 86593; 93005; 93010; 94640

== ENCOUNTER 2017-11-28 11:50 | Inpatient (IN) | payer OTHER ==
[2017-11-28 14:06] VITALS: BMI 24.0
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
[2017-11-28] MEDS ORDERED: P-EPHED 60MG/TRIPROLIDI 2.5MG TABLET PO PRN (15:22)
[2017-11-28] MEDS ORDERED: IBUPROFEN 400 MG TABLET (FP) PO PRN (15:22)
[2017-11-28] MEDS ORDERED: ACETAMINOPHEN 325 MG TABLET (FP) PO PRN (15:22)
[2017-11-28] MEDS ORDERED: MENTHOL/PHENOL 1 EACH UD MM PRN (15:22)
[2017-11-28] MEDS ORDERED: diazePAM 5 MG TABLET PO ONE (15:22)
[2017-11-28] MEDS ORDERED: guaiFENesin/D-METHORPHAN HB 10 ML UNIT-DOSE CUPS PO PRN (15:22)
[2017-11-28] MEDS ORDERED: MAGNESIUM HYDROX 2400MG/30ML ORAL SUSPENSION 30 ML CUP PO PRN (15:22)
[2017-11-28] MEDS ORDERED: MAGNESIUM CITRATE 300 ML BOTTLE PO PRN (15:22)
[2017-11-28] MEDS ORDERED: hydrOXYzine PAMOATE 50 MG CAPSULE (FP) PO PRN (15:22)
[2017-11-28] MEDS ORDERED: MAG HYDROX/AL HYDROX/SIMETH 30 ML UNIT-DOSE CUP PO PRN (15:22)
[2017-11-28] MEDS ORDERED: LOPERAMIDE HCL 2 MG CAPSULE PO PRN (15:22)
[2017-11-28] MEDS ORDERED: ALBUTEROL SO4 18 GM HFA INHALER IH PRN (15:23)
[2017-11-28] MEDS ORDERED: ALBUTEROL SO4 2.5/IPRATROPIUM 0.5 INH SOL 3 ML VIAL.NEB. NEB ONE (15:24)
[2017-11-28] MEDS ORDERED: ALBUTEROL SO4 2.5/IPRATROPIUM 0.5 INH SOL 3 ML VIAL.NEB. NEB PRN (15:24)
[2017-11-28] MEDS: diazePAM 5 MG TABLET PO SCH (22:05)
[2017-11-28] MEDS: MOMETASONE FUROATE 220 MCG/IH INHALER IH SCH (22:05)
[2017-11-28] MEDS: THIAMINE HCL 100 MG TABLET (FP) PO SCH (22:05)
[2017-11-28 23:16] LABS: URINE APPEARANCE CLEAR; URINE BILIRUBIN NEGATIVE (NEGATIVE); URINE BLOOD NEGATIVE (NEGATIVE); URINE COLOR STRAW; URINE GLUCOSE (UA) NEGATIVE (NEGATIVE); URINE KETONE NEGATIVE (NEGATIVE); URINE LEUK ESTERASE NEGATIVE (NEGATIVE); URINE NITRITE NEGATIVE (NEGATIVE); URINE PROTEIN NEGATIVE (NEGATIVE); URINE UROBILINOGEN NEGATIVE mg/dL (0.2-1.0)
[2017-11-29] MEDS: diazePAM 5 MG TABLET PO SCH ×3 (05:17→22:02)
[2017-11-29] MEDS: diazePAM 5 MG TABLET PO PRN ×3 (07:50→17:29)
[2017-11-29] MEDS ORDERED: METHADONE HCL 10 MG TABLET ONE (07:57)
[2017-11-29] MEDS ORDERED: METHADONE HCL 40 MG DISPERSABLE TABLET ONE (07:57)
[2017-11-29] MEDS: METHADONE 80 MG, METHADONE 10 MG PO SCH (07:59)
[2017-11-29] MEDS ORDERED: METHADONE HCL 10 MG TABLET PO SCH (08:00)
--- NOTE | 2017-11-29 09:50 | EKG ---
Test Reason : Blood Pressure : / mmHG Vent. Rate : 057 BPM Atrial Rate : 057 BPM P-R Int : 164 ms QRS Dur : 098 ms QT Int : 424 ms P-R-T Axes : 054 084 067 degrees QTc Int : 412 ms SINUS BRADYCARDIA WITH SINUS ARRHYTHMIA EARLY REPOLARIZATION OTHERWISE NORMAL ECG WHEN COMPARED WITH ECG OF 31-MAY-2017 17:27, NO SIGNIFICANT CHANGE WAS FOUND Confirmed by CHICO BOYD, GENESIS ([id number]) on 11/29/2017 9:50:09 AM Referred By: Confirmed By:GENESIS GOLDEN MD
[2017-11-29 10:30] LABS: HEMATOCRIT 41.3 % (35.4-49); HEMOGLOBIN 13.6 GM/dL (11.7-16.9); MCHC 32.8 g/dl (32.0-35.9); MEAN CELL VOLUME 91.5 fl (80-96); MEAN PLT VOLUME 9.7 fl (7.5-11.1); PLATELET COUNT 184 K/MM3 (134-434); RBC 4.52 M/mm3 (4.00-5.60); RDW 14.7 % (11.9-15.9); WHITE BLOOD COUNT 8.8 K/mm3 (4.0-10.0)
[2017-11-29] MEDS: NICOTINE 21 MG/24 HOURS TOPICAL PATCH TD SCH (10:34)
[2017-11-29] MEDS: PRENATAL VITAMINS W/ FOLIC ACID TABLET (FP) PO SCH (10:34)
[2017-11-29 10:40] LABS: CHLORIDE 105 mmol/L (98-107); SODIUM 140 mmol/L (136-145)
[2017-11-29 10:47] LABS: ALBUMIN 4.2 g/dl (3.4-5.0); ALK PHOS 84 U/L (45-117); ANION GAP 5 (8-16); BILIRUBIN,TOTAL 0.4 mg/dL (0.2-1.0); BLOOD UREA NITROGEN 16 mg/dL (7-18); CALCIUM 8.7 mg/dL (8.5-10.1); CO2 30 mmol/L (21-32); CREATININE 0.8 mg/dL (0.7-1.3); GLUCOSE,RANDOM 95 mg/dL (74-106); SGOT/AST 21 U/L (15-37); SGPT/ALT 35 U/L (12-78)
[2017-11-29] MEDS ORDERED: FLU VACCINE QUAD 60 MCG/0.5 ML (MDV 17-18) IM ONE (12:00)
[2017-11-29] MEDS: ESCITALOPRAM OXALATE 10 MG TABLET (FP) PO SCH (15:13)
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
--- NOTE | 2017-11-29 16:03 | PN ---
S CIWA - CIWA Score Nausea/Vomitin Muscle Tremors: 3 Anxiety: 5 Agitation: 2 Paroxysmal Sweats: 3 Orientation: 0-Oriented Tacttile Disturbances: 2-Mild Itch/Numbness/Burn Auditory Disturbances: 0-None Visual Disturbances: 0-None Headache: 0-None Present CIWA-Ar Total Score: 18 BHS Progress Note (SOAP) Subjective: Tremors, Sweating, Hot / Cold Sensations, Nausea, Stomach Cramping, Diarrhea. Objective: PT. A & O X 3, OBSERVED AMBULATING ON UNIT. NO ACUTE DISTRESS. 11/29/17 16:01 Vital Signs Temperature 98.4 F 11/29/17 13:55 Pulse Rate 52 L 11/29/17 13:55 Respiratory Rate 18 11/29/17 13:55 Blood Pressure 115/72 11/29/17 13:55 O2 Sat by Pulse Oximetry (%) Laboratory Tests 11/28/17 11/29/17 11/29/17 08:20 06:00 06:00 WBC 8.8 RBC 4.52 Hgb 13.6 D Hct 41.3 MCV 91.5 MCH 30.0 MCHC 32.8 RDW 14.7 Plt Count 184 MPV 9.7 Sodium 140 Potassium 4.0 Chloride 105 Carbon Dioxide 30 Anion Gap 5 L BUN 16 Creatinine 0.8 Creat Clearance w eGFR > 60 Random Glucose 95 Calcium 8.7 Total Bilirubin 0.4 D AST 21 D ALT 35 Alkaline Phosphatase 84 Total Protein 7.0 Albumin 4.2 Urine Color Straw Urine Appearance Clear Urine pH 7.0 Ur Specific [place] 1.004 Urine Protein Negative Urine Glucose (UA) Negative Urine Ketones Negative Urine Blood Negative Urine Nitrite Negative Urine Bilirubin Negative Urine Urobilinogen Negative Ur Leukocyte Esterase Negative LABS NOTED. RPR RESULT PENDING. 11/29/17 16:03 Assessment: 11/29/17 16:02 WITHDRAWAL SYMPTOMS. Plan: CONTINUE DETOX. INCREASE DAILY PO FLUID INTAKE.
[2017-11-29] MEDS: ARIPiprazole 10 MG TABLET PO SCH (22:02)
[2017-11-29] MEDS: THIAMINE HCL 100 MG TABLET (FP) PO SCH (22:02)
[2017-11-29] MEDS: MOMETASONE FUROATE 220 MCG/IH INHALER IH SCH (22:02)
[2017-11-30] MEDS ORDERED: METHADONE HCL 10 MG TABLET ONE (04:53)
[2017-11-30] MEDS ORDERED: METHADONE HCL 40 MG DISPERSABLE TABLET ONE (04:54)
[2017-11-30] MEDS: diazePAM 5 MG TABLET PO PRN ×2 (05:49→17:07)
[2017-11-30] MEDS: METHADONE 80 MG, METHADONE 10 MG PO SCH (05:49)
[2017-11-30] MEDS: diazePAM 5 MG TABLET PO SCH ×2 (10:44→22:05)
[2017-11-30] MEDS: NAPROXEN 500 MG TABLET (FP) PO SCH ×2 (10:44→22:05)
[2017-11-30] MEDS: NICOTINE 21 MG/24 HOURS TOPICAL PATCH TD SCH (10:44)
[2017-11-30] MEDS: PRENATAL VITAMINS W/ FOLIC ACID TABLET (FP) PO SCH (10:44)
[2017-11-30] MEDS: ESCITALOPRAM OXALATE 10 MG TABLET (FP) PO SCH (10:44)
--- NOTE | 2017-11-30 12:31 | PN ---
S CIWA - CIWA Score Nausea/Vomitin Muscle Tremors: 3 Anxiety: 4-Mod. Anxious/Guarded Agitation: 3 Paroxysmal Sweats: 3 Orientation: 0-Oriented Tacttile Disturbances: 2-Mild Itch/Numbness/Burn Auditory Disturbances: 0-None Visual Disturbances: 0-None Headache: 0-None Present CIWA-Ar Total Score: 18 BHS Progress Note (SOAP) Subjective: Sweating, Tremors, Body Aches, Nausea, Diarrhea, Anxious. Objective: PT. A & O X 3, OBSERVED AMBULATING ON UNIT. NO ACUTE DISTRESS. 11/30/17 12:30 Vital Signs Temperature 99.5 F 11/30/17 09:21 Pulse Rate 66 11/30/17 09:21 Respiratory Rate 18 11/30/17 09:21 Blood Pressure 123/78 11/30/17 09:21 O2 Sat by Pulse Oximetry (%) Laboratory Tests 11/28/17 11/29/17 11/29/17 08:20 06:00 06:00 WBC 8.8 RBC 4.52 Hgb 13.6 D Hct 41.3 MCV 91.5 MCH 30.0 MCHC 32.8 RDW 14.7 Plt Count 184 MPV 9.7 Sodium 140 Potassium 4.0 Chloride 105 Carbon Dioxide 30 Anion Gap 5 L BUN 16 Creatinine 0.8 Creat Clearance w eGFR > 60 Random Glucose 95 Calcium 8.7 Total Bilirubin 0.4 D AST 21 D ALT 35 Alkaline Phosphatase 84 Total Protein 7.0 Albumin 4.2 Urine Color Straw Urine Appearance Clear Urine pH 7.0 Ur Specific [place] 1.004 Urine Protein Negative Urine Glucose (UA) Negative Urine Ketones Negative Urine Blood Negative Urine Nitrite Negative Urine Bilirubin Negative Urine Urobilinogen Negative Ur Leukocyte Esterase Negative RPR Titer 11/29/17 06:00 WBC RBC Hgb Hct MCV MCH MCHC RDW Plt Count MPV Sodium Potassium Chloride Carbon Dioxide Anion Gap BUN Creatinine Creat Clearance w eGFR Random Glucose Calcium Total Bilirubin AST ALT Alkaline Phosphatase Total Protein Albumin Urine Color Urine Appearance Urine pH Ur Specific [place] Urine Protein Urine Glucose (UA) Urine Ketones Urine Blood Urine Nitrite Urine Bilirubin Urine Urobilinogen Ur Leukocyte Esterase RPR Titer Nonreactive LABS NOTED. Assessment: 11/30/17 12:30 WITHDRAWAL SYMPTOMS. Plan: CONTINUE DETOX. PRN IMMODIUM FOR DIARRHEA. INCREASE DAILY PO FLUID INTAKE.
[2017-11-30] MEDS: THIAMINE HCL 100 MG TABLET (FP) PO SCH (22:05)
[2017-11-30] MEDS: ARIPiprazole 10 MG TABLET PO SCH (22:05)
[2017-11-30] MEDS: MOMETASONE FUROATE 220 MCG/IH INHALER IH SCH (22:05)
[2017-12-01] MEDS ORDERED: METHADONE HCL 10 MG TABLET ONE (04:58)
[2017-12-01] MEDS ORDERED: METHADONE HCL 40 MG DISPERSABLE TABLET ONE (04:58)
[2017-12-01] MEDS: METHADONE 80 MG, METHADONE 10 MG PO SCH (05:27)
[2017-12-01] MEDS: diazePAM 5 MG TABLET PO PRN ×2 (05:27→14:54)
[2017-12-01] MEDS: NAPROXEN 500 MG TABLET (FP) PO SCH ×2 (10:39→22:05)
[2017-12-01] MEDS: PRENATAL VITAMINS W/ FOLIC ACID TABLET (FP) PO SCH (10:39)
[2017-12-01] MEDS: ESCITALOPRAM OXALATE 10 MG TABLET (FP) PO SCH (10:39)
[2017-12-01] MEDS: NICOTINE 21 MG/24 HOURS TOPICAL PATCH TD SCH (10:39)
[2017-12-01] MEDS: diazePAM 5 MG TABLET PO SCH ×2 (10:50→22:05)
--- NOTE | 2017-12-01 12:32 | PN ---
BHS Progress Note (SOAP) Subjective: Sweating, Anxious, Tremors, Nausea, Diarrhea. Objective: PT. A & O X 3, OBSERVED AMBULATING ON UNIT. NO ACUTE DISTRESS. 12/01/17 12:30 Vital Signs Temperature 98.1 F 12/01/17 09:44 Pulse Rate 76 12/01/17 09:44 Respiratory Rate 18 12/01/17 09:44 Blood Pressure 116/76 12/01/17 09:44 O2 Sat by Pulse Oximetry (%) Laboratory Tests 11/28/17 11/29/17 11/29/17 08:20 06:00 06:00 WBC 8.8 RBC 4.52 Hgb 13.6 D Hct 41.3 MCV 91.5 MCH 30.0 MCHC 32.8 RDW 14.7 Plt Count 184 MPV 9.7 Sodium 140 Potassium 4.0 Chloride 105 Carbon Dioxide 30 Anion Gap 5 L BUN 16 Creatinine 0.8 Creat Clearance w eGFR > 60 Random Glucose 95 Calcium 8.7 Total Bilirubin 0.4 D AST 21 D ALT 35 Alkaline Phosphatase 84 Total Protein 7.0 Albumin 4.2 Urine Color Straw Urine Appearance Clear Urine pH 7.0 Ur Specific [place] 1.004 Urine Protein Negative Urine Glucose (UA) Negative Urine Ketones Negative Urine Blood Negative Urine Nitrite Negative Urine Bilirubin Negative Urine Urobilinogen Negative Ur Leukocyte Esterase Negative RPR Titer 11/29/17 06:00 WBC RBC Hgb Hct MCV MCH MCHC RDW Plt Count MPV Sodium Potassium Chloride Carbon Dioxide Anion Gap BUN Creatinine Creat Clearance w eGFR Random Glucose Calcium Total Bilirubin AST ALT Alkaline Phosphatase Total Protein Albumin Urine Color Urine Appearance Urine pH Ur Specific [place] Urine Protein Urine Glucose (UA) Urine Ketones Urine Blood Urine Nitrite Urine Bilirubin Urine Urobilinogen Ur Leukocyte Esterase RPR Titer Nonreactive LABS NOTED. Assessment: 12/01/17 12:30 WITHDRAWAL SYMPTOMS. Plan: CONTINUE DETOX. PRN IMMODIUM FOR DIARRHEA. INCREASE DAILY PO FLUID INTAKE.
[2017-12-01] MEDS: MOMETASONE FUROATE 220 MCG/IH INHALER IH SCH (22:05)
[2017-12-01] MEDS: ARIPiprazole 10 MG TABLET PO SCH (22:05)
[2017-12-01] MEDS: THIAMINE HCL 100 MG TABLET (FP) PO SCH (22:05)
[2017-12-02] MEDS ORDERED: METHADONE HCL 10 MG TABLET ONE (06:19)
[2017-12-02] MEDS ORDERED: METHADONE HCL 40 MG DISPERSABLE TABLET ONE (06:20)
[2017-12-02] MEDS: METHADONE 80 MG, METHADONE 10 MG PO SCH (06:20)
[2017-12-02 06:54] VITALS: BP 135/69; PULSE 75; TEMP 97.2
[2017-12-02] MEDS ORDERED: diazePAM 5 MG TABLET PO SCH (10:00)
--- NOTE | 2017-12-02 17:38 | DS ---
[facility] Detox Discharge Summary Admission Date: 11/28/17 - History Present History: Alcohol Dependence, Cocaine Dependence, MMTP Pertinent Past History: Asthma COPD Old VA Hepatitis C - Physical Exam Results Vital Signs: Vital Signs Temperature 97.2 F L 12/02/17 06:54 Pulse Rate 75 12/02/17 06:54 Respiratory Rate 18 12/02/17 06:54 Blood Pressure 135/69 12/02/17 06:54 O2 Sat by Pulse Oximetry (%) Pertinent Admission Physical Exam Findings: Withdrawal symptoms Laboratory Tests 11/28/17 11/29/17 11/29/17 08:20 06:00 06:00 WBC 8.8 RBC 4.52 Hgb 13.6 D Hct 41.3 MCV 91.5 MCH 30.0 MCHC 32.8 RDW 14.7 Plt Count 184 MPV 9.7 Sodium 140 Potassium 4.0 Chloride 105 Carbon Dioxide 30 Anion Gap 5 L BUN 16 Creatinine 0.8 Creat Clearance w eGFR > 60 Random Glucose 95 Calcium 8.7 Total Bilirubin 0.4 D AST 21 D ALT 35 Alkaline Phosphatase 84 Total Protein 7.0 Albumin 4.2 Urine Color Straw Urine Appearance Clear Urine pH 7.0 Ur Specific [place] 1.004 Urine Protein Negative Urine Glucose (UA) Negative Urine Ketones Negative Urine Blood Negative Urine Nitrite Negative Urine Bilirubin Negative Urine Urobilinogen Negative Ur Leukocyte Esterase Negative RPR Titer 11/29/17 06:00 WBC RBC Hgb Hct MCV MCH MCHC RDW Plt Count MPV Sodium Potassium Chloride Carbon Dioxide Anion Gap BUN Creatinine Creat Clearance w eGFR Random Glucose Calcium Total Bilirubin AST ALT Alkaline Phosphatase Total Protein Albumin Urine Color Urine Appearance Urine pH Ur Specific [place] Urine Protein Urine Glucose (UA) Urine Ketones Urine Blood Urine Nitrite Urine Bilirubin Urine Urobilinogen Ur Leukocyte Esterase RPR Titer Nonreactive Labs noted - Treatment Hospital Course: Detox Protocol Followed, Detoxed Safely, Responded well, Discharged Condition Good - Medication Discharge Medications: Ambulatory Orders Albuterol Sulfate Inhaler - [Ventolin Hfa Inhaler -] 2 inh PO Q6H PRN 12/14/16 Aripiprazole [Abilify -] 10 mg PO DAILY #30 tablet 06/01/17 Escitalopram Oxalate [Lexapro -] 10 mg PO DAILY 11/28/17 Fluticasone Propionate [Flovent Hfa] 2 inh IH BID 11/28/17 Naproxen [Naprosyn -] 500 mg PO BID 11/28/17 Zolpidem Tartrate [Ambien] 5 mg PO HS 11/28/17 - Diagnosis (1) Alcohol dependence with uncomplicated withdrawal Status: Acute (2) Cocaine dependence Status: Chronic Qualifiers: Substance use status: uncomplicated Qualified Code(s): F14.20 - Cocaine dependence, uncomplicated (3) Substance induced mood disorder Status: Acute (4) Asthma Status: Chronic Qualifiers: Asthma severity: mild Asthma persistence: unspecified Asthma complication type: uncomplicated Qualified Code(s): J45.909 - Unspecified asthma, uncomplicated (5) COPD (chronic obstructive pulmonary disease) Status: Chronic Qualifiers: COPD type: chronic bronchitis Chronic bronchitis type: unspecified Qualified Code(s): J42 - Unspecified chronic bronchitis (6) Hepatitis C Status: Chronic Qualifiers: Viral hepatitis chronicity: chronic Hepatic coma status: without hepatic coma Qualified Code(s): B18.2 - Chronic viral hepatitis C (7) MDD (major depressive disorder) Status: Chronic Qualifiers: Major depression recurrence: recurrent Active/Remission status: remission status unspecified Qualified Code(s): F33.9 - Major depressive disorder, recurrent, unspecified (8) Methadone maintenance therapy patient Status: Chronic (9) Myocardial infarct, old Status: Chronic (10) Nicotine dependence Status: Chronic Qualifiers: Nicotine product type: cigarettes Substance use status: uncomplicated Qualified Code(s): F17.210 - Nicotine dependence, cigarettes, uncomplicated - AMA Did Patient Leave Against Medical Advice: No
== END 2017-12-02 07:21 | disposition home or self-care (01) | DRG 773 ==
LOC: YASAS 11:50 → Y3N 15:18
PROVIDERS: ADMIT Internal Medicine; ATTEND Internal Medicine
PROC: HZ2ZZZZ Detoxification Services for Substance Abuse Treatment (ICD-10-PCS; principal; 2017-11-28)
DX: F10.230 Alcohol dependence with withdrawal, uncomplicated (principal); F11.20 Opioid dependence, uncomplicated; F14.20 Cocaine dependence, uncomplicated; F17.210 Nicotine dependence, cigarettes, uncomplicated; F19.24 Other psychoactive substance dependence with psychoactive substance-induced mood disorder; F33.9 Major depressive disorder, recurrent, unspecified; I25.2 Old myocardial infarction; J45.909 Unspecified asthma, uncomplicated; J42 Unspecified chronic bronchitis; B18.2 Chronic viral hepatitis C; M54.5 Low back pain; G89.29 Other chronic pain
CPT/HCPCS: 36415; 80053; 81003; 85027; 86593; 90688; 93005; 93010; 94640

== ENCOUNTER 2018-02-14 14:09 | Inpatient (IN) | payer OTHER ==
[2018-02-14 15:08] VITALS: BMI 22.9
--- NOTE | 2018-02-14 15:41 | HP ---
CIWA Score - CIWA Score Nausea/Vomitin-Mild Nausea/No Vomiting Muscle Tremors: 4-Moderate,w/Arms Extend Anxiety: 4-Mod. Anxious/Guarded Agitation: 4-Moderately Restless Paroxysmal Sweats: 1-Minimal Palms Moist Orientation: 0-Oriented Tacttile Disturbances: 1-Very Mild Itch/Numbness Auditory Disturbances: 0-None Visual Disturbances: 0-None Headache: 0-None Present CIWA-Ar Total Score: 15 Admission ROS BHS - HPI Chief Complaint: withdrawal sx Allergies/Adverse Reactions: Allergies Allergy/AdvReac Type Severity Reaction Status Date / Time No Known Allergies Allergy Verified 02/14/18 15:44 History of Present Illness: 48 years old male with long history of alcohol benzo dependence in methadone program 90 mg po daily has depression is admitted to detox Exam Limitations: No Limitations - Ebola screening Have you traveled outside of the country in the last 21 days: No Have you had contact with anyone from an Ebola affected area: No Have you been sick,other than usual withdrawal symptoms: No Do you have a fever: No - Review of Systems Constitutional: Loss of Appetite, Changes in sleep, Unintentional Wgt. Loss, Unexplained wgt Loss EENT: reports: Blurred Vision (eye glasses) Respiratory: reports: Cough Cardiac: reports: No Symptoms Reported GI: reports: Diarrhea, Nausea, Poor Appetite, Poor Fluid Intake, Abdominal cramping : reports: No Symptoms Reported Musculoskeletal: reports: Back Pain, Joint Pain, Muscle Pain, Neck Pain Integumentary: reports: Change in Color (both inner elbows) Neuro: reports: Tremors Endocrine: reports: No Symptoms Reported Hematology: reports: No Symptoms Reported Psychiatric: reports: Judgement Intact, Orientated x3, Anxious, Depressed Other Systems: Reviewed and Negative Patient History - Patient Medical History Hx Anemia: Yes Hx Asthma: Yes Hx Chronic Obstructive Pulmonary Disease (COPD): Yes Hx Cancer: No Hx Cardiac Disorders: Yes (h/o [place] ) Hx Congestive Heart Failure: No Hx Hypertension: No Hx Hypercholesterolemia: No Hx Pacemaker: No HX Cerebrovascular Accident: No Hx Seizures: No Hx Dementia: No Hx Diabetes: No Hx Gastrointestinal Disorders: No Hx Liver Disease: Yes Hx Genitourinary Disorders: No Hx Sexually Transmitted Disorders: No Hx Renal Disease (ESRD): No Hx Thyroid Disease: No Hx Human Immunodeficiency Virus (HIV): No Hx Hepatitis C: Yes (undetecable) Hx Depression: Yes Hx Suicide Attempt: No (denies any S/I today) Hx Bipolar Disorder: No Hx Schizophrenia: No - Patient Surgical History Past Surgical History: Yes Hx Neurologic Surgery: No Hx Cataract Extraction: No Hx Cardiac Surgery: No Hx Lung Surgery: No Hx Breast Surgery: No Hx Breast Biopsy: No Hx Abdominal Surgery: No Hx Appendectomy: No Hx Cholecystectomy: No Hx Genitourinary Surgery: No Hx Orthopedic Surgery: No Other Surgical History: LITHOTRIPSY 2006 Anesthesia Reaction: No - PPD History Previous Implant?: Yes Documented Results: Negative w/proof Implanted On Prior R Admission?: Yes Date: 06/02/17 Results: 0 mm PPD to be Administered?: No - Smoking Cessation Smoking history: Current every day smoker Have you smoked in the past 12 months: Yes Aproximately how many cigarettes per day: 7 Cigars Per Day: 0 Hx Chewing Tobacco Use: No Initiated information on smoking cessation: Yes 'Breaking Loose' booklet given: 02/14/18 - Substance & Tx. History Hx Alcohol Use: Yes Hx Substance Use: Yes Substance Use Type: Alcohol, Tranquilizers Hx Substance Use Treatment: Yes (11/2017) - Substances Abused Alcohol Route: Oral Frequency: Daily Amount used: 6 pk beers ( 16 oz cans) Age of first use: 10 Date of Last Use: 02/14/18 PCP Route: Smoking Frequency: 3-6 times per week Amount used: 2 bags Age of first use: 16 Date of Last Use: 02/13/18 Heroin Route: Injection Frequency: 1-2 times per week Amount used: 2 bags Age of first use: 16 Date of Last Use: 02/13/18 benzo Route: Oral Frequency: Daily Amount used: 2mg Age of first use: 38 Date of Last Use: 02/14/18 K2 Route: Smoking Frequency: Daily Amount used: 10 joints Age of first use: 44 Date of Last Use: 02/13/18 marijuna Route: Smoking Frequency: Daily Amount used: 2 joints Age of first use: 13 Date of Last Use: 02/13/18 Family Disease History - Family Disease History Family Disease History: Heart Disease: Father (HTN,MIdeceased mva), Mother (HTN, AF), Other: Grandparent (CVA), Father Admission Physical Exam BHS - Vital Signs Vital Signs: Vital Signs - 24 hr 02/14/18 15:01 Temperature 97.1 F L Pulse Rate 71 Respiratory 20 Rate Blood Pressure 150/100 - Physical General Appearance: Yes: Appropriately Dressed, Mild Distress, Tremorous, Irritable, Sweating, Anxious HEENTM: Yes: Hearing grossly Normal, Normocephalic, Normal Voice Respiratory: Yes: Chest Non-Tender, No Respiratory Distress, No Accessory Muscle Use, Wheezing, Expiration Neck: Yes: Supple, Trachea in good position Breast: Yes: Breasts Symetrical, No Discharge Cardiology: Yes: Regular Rhythm, Regular Rate, S1, S2 Abdominal: Yes: Non Tender, Flat, Increased Bowel Sounds Genitourinary: Yes: Within Normal Limits Back: Yes: Normal Inspection Musculoskeletal: Yes: full range of Motion, Gait Steady, Back pain, Muscle Pain Extremities: Yes: Normal Range of Motion, Non-Tender, Tremors Neurological: Yes: Fully Oriented, Alert, Motor Strength 5/5, Normal Response, Depressed Affect Integumentary: Yes: Warm, Track Gan Lymphatic: Yes: Within Normal Limits - Diagnostic (1) Sedative, hypnotic or anxiolytic dependence with withdrawal, uncomplicated Current Visit: Yes Status: Acute (2) Alcohol dependence with uncomplicated withdrawal Current Visit: Yes Status: Acute (3) Asthma Current Visit: Yes Status: Chronic Qualifiers: Asthma severity: mild Asthma persistence: unspecified Asthma complication type: uncomplicated Qualified Code(s): J45.909 - Unspecified asthma, uncomplicated (4) Hepatitis C Current Visit: Yes Status: Resolved Qualifiers: Viral hepatitis chronicity: chronic Hepatic coma status: without hepatic coma Qualified Code(s): B18.2 - Chronic viral hepatitis C (5) Methadone maintenance therapy patient Current Visit: Yes Status: Chronic Comment: 90 MG VERIFICATION PENDING (6) Nicotine dependence Current Visit: Yes Status: Acute Qualifiers: Nicotine product type: cigarettes Substance use status: in withdrawal Qualified Code(s): F17.213 - Nicotine dependence, cigarettes, with withdrawal Cleared for Admission [facility] - Detox or Rehab [facility] Level of Care: Medically Managed Detox Regimen/Protocol: Valium [facility] Breath Alcohol Content Breath Alcohol Content: 0 Urine Drug Screen - Control Is Test Valid: Yes - Results Drug Screen Negative: No Urine Drug Screen Results: THC-Marijuana, LEXI-Cocaine, PCP-Phencyclidine, MTD- Methadone
[2018-02-14] MEDS ORDERED: P-EPHED 60MG/TRIPROLIDI 2.5MG TABLET PO PRN (15:45)
[2018-02-14] MEDS ORDERED: IBUPROFEN 400 MG TABLET (FP) PO PRN (15:45)
[2018-02-14] MEDS ORDERED: ACETAMINOPHEN 325 MG TABLET (FP) PO PRN (15:45)
[2018-02-14] MEDS ORDERED: MENTHOL/PHENOL 1 EACH UD MM PRN (15:45)
[2018-02-14] MEDS ORDERED: guaiFENesin/D-METHORPHAN HB 10 ML UNIT-DOSE CUPS PO PRN (15:45)
[2018-02-14] MEDS ORDERED: MAGNESIUM CITRATE 300 ML BOTTLE PO PRN (15:45)
[2018-02-14] MEDS ORDERED: LOPERAMIDE HCL 2 MG CAPSULE PO PRN (15:45)
[2018-02-14] MEDS ORDERED: NICOTINE POLACRILEX 2 MG GUM BC PRN (15:45)
[2018-02-14] MEDS ORDERED: MAG HYDROX/AL HYDROX/SIMETH 30 ML UNIT-DOSE CUP PO PRN (15:45)
[2018-02-14] MEDS ORDERED: MAGNESIUM HYDROX 2400MG/30ML ORAL SUSPENSION 30 ML CUP PO PRN (15:45)
[2018-02-14] MEDS ORDERED: NAPROXEN 500 MG TABLET (FP) PO PRN (15:49)
[2018-02-14] MEDS ORDERED: ALBUTEROL SO4 18 GM HFA INHALER IH PRN (15:49)
[2018-02-14] MEDS ORDERED: diazePAM 5 MG TABLET PO ONE (17:00)
[2018-02-14] MEDS: NICOTINE 14 MG/24 HOURS TOPICAL PATCH TD SCH (18:08)
[2018-02-14] MEDS: hydrOXYzine PAMOATE 50 MG CAPSULE (FP) PO PRN (20:17)
[2018-02-14] MEDS ORDERED: MELATONIN 5 MG TABLETS PO PRN (22:00)
[2018-02-14] MEDS: diazePAM 5 MG TABLET PO SCH (22:33)
[2018-02-14] MEDS: THIAMINE HCL 100 MG TABLET (FP) PO SCH (22:33)
[2018-02-14 23:34] LABS: URINE APPEARANCE TURBID; URINE BILIRUBIN NEGATIVE (<2.0 mg/dL); URINE BLOOD NEGATIVE (NEGATIVE); URINE COLOR YELLOW; URINE GLUCOSE (UA) NEGATIVE (NEGATIVE); URINE KETONE NEGATIVE (NEGATIVE); URINE LEUK ESTERASE TRACE (NEGATIVE); URINE NITRITE NEGATIVE (NEGATIVE); URINE PROTEIN NEGATIVE (NEGATIVE); URINE UROBILINOGEN NEGATIVE mg/dL (0.2-1.0)
[2018-02-14 23:39] LABS: URINE BACTERIA MODERATE /hpf (NONE SEEN); URINE MUCUS MODERATE
[2018-02-15] MEDS: diazePAM 5 MG TABLET PO SCH ×3 (05:34→22:22)
[2018-02-15] MEDS ORDERED: METHADONE HCL 10 MG TABLET PO ONE (08:51)
[2018-02-15] MEDS ORDERED: METHADONE 80 MG, METHADONE 10 MG PO ONE (09:00)
[2018-02-15] MEDS ORDERED: METHADONE HCL 40 MG DISPERSABLE TABLET ONE (09:14)
[2018-02-15] MEDS ORDERED: METHADONE HCL 10 MG TABLET ONE (09:14)
[2018-02-15] MEDS: diazePAM 5 MG TABLET PO PRN ×2 (09:22→17:17)
[2018-02-15] MEDS: PRENATAL VITAMINS W/ FOLIC ACID TABLET (FP) PO SCH (09:22)
[2018-02-15] MEDS: NICOTINE 14 MG/24 HOURS TOPICAL PATCH TD SCH (09:22)
[2018-02-15 10:26] LABS: HEMOGLOBIN 15.2 GM/dL (11.7-16.9); MCH 31.9 pg (25.7-33.7); MCHC 33.7 g/dl (32.0-35.9); MEAN CELL VOLUME 94.7 fl (80-96); MEAN PLT VOLUME 8.9 fl (7.5-11.1); PLATELET COUNT 213 K/MM3 (134-434); RBC 4.76 M/mm3 (4.00-5.60); RDW 13.8 % (11.9-15.9); WHITE BLOOD COUNT 8.1 K/mm3 (4.0-10.0)
[2018-02-15 10:40] LABS: CHLORIDE 104 mmol/L (98-107); POTASSIUM 4.4 mmol/L (3.5-5.1); SODIUM 140 mmol/L (136-145)
[2018-02-15 10:56] LABS: ALBUMIN 4.3 g/dl (3.4-5.0); ALK PHOS 95 U/L (45-117); ANION GAP 5 (8-16); BILIRUBIN,TOTAL 0.7 mg/dL (0.2-1.0); BLOOD UREA NITROGEN 19 mg/dL (7-18); CALCIUM 9.3 mg/dL (8.5-10.1); CO2 31 mmol/L (21-32); CREATININE 0.8 mg/dL (0.7-1.3); GLUCOSE,RANDOM 88 mg/dL (74-106); SGOT/AST 48 U/L (15-37); SGPT/ALT 62 U/L (12-78); TOT PROT 7.7 g/dl (6.4-8.2)
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
--- NOTE | 2018-02-15 14:39 | PN ---
[facility] CIWA - CIWA Score Nausea/Vomitin-Mild Nausea/No Vomiting Muscle Tremors: 4-Moderate,w/Arms Extend Anxiety: 5 Agitation: 5 Paroxysmal Sweats: 1-Minimal Palms Moist Orientation: 0-Oriented Tacttile Disturbances: 0-None Auditory Disturbances: 0-None Visual Disturbances: 0-None Headache: 0-None Present CIWA-Ar Total Score: 16 BHS Progress Note (SOAP) Subjective: ANXIETY,AGITATIONS,RESTLESSNESS WITH CURSING--VERBALLY AGRESSIVELY DEMANDING HIS METHADONE NOW AND PACING BACK AND FORTH(WHILE METHADONE IS BEING VERIFIED AND ORDERED. PT GIVEN SAME INFORMATION AND THAT HE WILL BE MEDICATED ONCE PROCESS IS FINISHED). Objective: 02/15/18 14:38 Vital Signs Temperature 97.3 F L 02/15/18 13:57 Pulse Rate 72 02/15/18 13:57 Respiratory Rate 16 02/15/18 13:57 Blood Pressure 99/70 02/15/18 13:57 O2 Sat by Pulse Oximetry (%) Laboratory Last Values WBC 8.1 K/mm3 (4.0-10.0) 02/15/18 07:00 RBC 4.76 M/mm3 (4.00-5.60) 02/15/18 07:00 Hgb 15.2 GM/dL (11.7-16.9) D 02/15/18 07:00 Hct 45.0 % (35.4-49) 02/15/18 07:00 MCV 94.7 fl (80-96) 02/15/18 07:00 MCH 31.9 pg (25.7-33.7) 02/15/18 07:00 MCHC 33.7 g/dl (32.0-35.9) 02/15/18 07:00 RDW 13.8 % (11.9-15.9) 02/15/18 07:00 Plt Count 213 K/MM3 (134-434) 02/15/18 07:00 MPV 8.9 fl (7.5-11.1) 02/15/18 07:00 Sodium 140 mmol/L (136-145) 02/15/18 07:00 Potassium 4.4 mmol/L (3.5-5.1) 02/15/18 07:00 Chloride 104 mmol/L (98-107) 02/15/18 07:00 Carbon Dioxide 31 mmol/L (21-32) 02/15/18 07:00 Anion Gap 5 (8-16) L 02/15/18 07:00 BUN 19 mg/dL (7-18) H 02/15/18 07:00 Creatinine 0.8 mg/dL (0.7-1.3) 02/15/18 07:00 Creat Clearance w eGFR > 60 (>60) 02/15/18 07:00 Random Glucose 88 mg/dL (74-106) 02/15/18 07:00 Calcium 9.3 mg/dL (8.5-10.1) 02/15/18 07:00 Total Bilirubin 0.7 mg/dL (0.2-1.0) D 02/15/18 07:00 AST 48 U/L (15-37) H D 02/15/18 07:00 ALT 62 U/L (12-78) D 02/15/18 07:00 Alkaline Phosphatase 95 U/L (45-117) 02/15/18 07:00 Total Protein 7.7 g/dl (6.4-8.2) 02/15/18 07:00 Albumin 4.3 g/dl (3.4-5.0) 02/15/18 07:00 Urine Color Yellow 02/14/18 23:20 Urine Appearance Turbid 02/14/18 23:20 Urine pH 5.0 (5.0-8.0) D 02/14/18 23:20 Ur Specific [place] 1.024 (1.001-1.035) 02/14/18 23:20 Urine Protein Negative (NEGATIVE) 02/14/18 23:20 Urine Glucose (UA) Negative (NEGATIVE) 02/14/18 23:20 Urine Ketones Negative (NEGATIVE) 02/14/18 23:20 Urine Blood Negative (NEGATIVE) 02/14/18 23:20 Urine Nitrite Negative (NEGATIVE) 02/14/18 23:20 Urine Bilirubin Negative (<2.0 mg/dL) 02/14/18 23:20 Urine Urobilinogen Negative mg/dL (0.2-1.0) 02/14/18 23:20 Ur Leukocyte Esterase Trace (NEGATIVE) 02/14/18 23:20 Urine WBC (Auto) 9 /hpf (3-5) 02/14/18 23:20 Urine RBC (Auto) None /hpf (0-3) 02/14/18 23:20 Urine Bacteria Moderate /hpf (NONE SEEN) 02/14/18 23:20 Urine Mucus Moderate 02/14/18 23:20 RPR Titer Nonreactive (NONREACTIVE) 02/15/18 07:00 Assessment: 02/15/18 14:38 WITHDRAWAL SX Plan: CONTINUE DETOX METAHDONE ORDERED AND STAT DOSE FOR TODAY RECEIVED.
--- NOTE | 2018-02-15 16:16 | EKG ---
Test Reason : Blood Pressure : / mmHG Vent. Rate : 078 BPM Atrial Rate : 078 BPM P-R Int : 162 ms QRS Dur : 090 ms QT Int : 390 ms P-R-T Axes : 076 087 065 degrees QTc Int : 444 ms NORMAL SINUS RHYTHM WITH SINUS ARRHYTHMIA NORMAL ECG WHEN COMPARED WITH ECG OF 28-NOV-2017 17:33, NO SIGNIFICANT CHANGE WAS FOUND Confirmed by LIAM BOYD, ANAID ([id number]) on 02/15/2018 4:16:09 PM Referred By: Confirmed By:ANAID WHEELER MD
[2018-02-15] MEDS: hydrOXYzine PAMOATE 50 MG CAPSULE (FP) PO PRN (20:18)
[2018-02-15] MEDS: THIAMINE HCL 100 MG TABLET (FP) PO SCH (22:22)
[2018-02-15] MEDS: ZOLPIDEM TARTRATE 5 MG TABLET PO PRN (22:22)
[2018-02-16] MEDS ORDERED: METHADONE HCL 10 MG TABLET PO SCH (06:00)
[2018-02-16] MEDS ORDERED: METHADONE HCL 10 MG TABLET ONE (06:02)
[2018-02-16] MEDS ORDERED: METHADONE HCL 40 MG DISPERSABLE TABLET ONE (06:03)
[2018-02-16] MEDS: METHADONE 80 MG, METHADONE 10 MG PO SCH (06:03)
[2018-02-16] MEDS: diazePAM 5 MG TABLET PO PRN ×3 (06:18→17:13)
[2018-02-16] MEDS ORDERED: TRIMETHOBENZAMIDE HCL 200MG/2ML INJ IM ONE (09:47)
[2018-02-16] MEDS: ARIPiprazole 10 MG TABLET PO SCH (10:50)
[2018-02-16] MEDS: NICOTINE 14 MG/24 HOURS TOPICAL PATCH TD SCH (10:50)
[2018-02-16] MEDS: ESCITALOPRAM OXALATE 10 MG TABLET (FP) PO SCH (10:50)
[2018-02-16] MEDS: diazePAM 5 MG TABLET PO SCH ×2 (10:51→22:21)
[2018-02-16] MEDS: cloNIDine HCL 0.1 MG TABLET PO SCH ×2 (10:51→22:21)
[2018-02-16] MEDS: PRENATAL VITAMINS W/ FOLIC ACID TABLET (FP) PO SCH (10:51)
--- NOTE | 2018-02-16 11:58 | PN ---
S CIWA - CIWA Score Nausea/Vomitin Muscle Tremors: 3 Anxiety: 5 Agitation: 5 Paroxysmal Sweats: 1-Minimal Palms Moist Orientation: 0-Oriented Tacttile Disturbances: 1-Very Mild Itch/Numbness Auditory Disturbances: 0-None Visual Disturbances: 0-None Headache: 0-None Present CIWA-Ar Total Score: 20 BHS Progress Note (SOAP) Subjective: Anxious, Agitated, Vomiting, Diarrhea, Body Aches, Tremors, Interrupted Sleep. Objective: PATIENT A & O X 3, OBSERVED AMBULATING ON UNIT. NO ACUTE DISTRESS. 02/16/18 11:55 Vital Signs Temperature 96.8 F L 02/16/18 09:11 Pulse Rate 85 02/16/18 09:11 Respiratory Rate 18 02/16/18 09:11 Blood Pressure 113/77 02/16/18 09:11 O2 Sat by Pulse Oximetry (%) Laboratory Tests 02/14/18 02/15/18 02/15/18 23:20 07:00 07:00 WBC 8.1 RBC 4.76 Hgb 15.2 D Hct 45.0 MCV 94.7 MCH 31.9 MCHC 33.7 RDW 13.8 Plt Count 213 MPV 8.9 Sodium 140 Potassium 4.4 Chloride 104 Carbon Dioxide 31 Anion Gap 5 L BUN 19 H Creatinine 0.8 Creat Clearance w eGFR > 60 Random Glucose 88 Calcium 9.3 Total Bilirubin 0.7 D AST 48 H D ALT 62 D Alkaline Phosphatase 95 Total Protein 7.7 Albumin 4.3 Urine Color Yellow Urine Appearance Turbid Urine pH 5.0 D Ur Specific [place] 1.024 Urine Protein Negative Urine Glucose (UA) Negative Urine Ketones Negative Urine Blood Negative Urine Nitrite Negative Urine Bilirubin Negative Urine Urobilinogen Negative Ur Leukocyte Esterase Trace Urine WBC (Auto) 9 Urine RBC (Auto) None Urine Bacteria Moderate Urine Mucus Moderate RPR Titer 02/15/18 07:00 WBC RBC Hgb Hct MCV MCH MCHC RDW Plt Count MPV Sodium Potassium Chloride Carbon Dioxide Anion Gap BUN Creatinine Creat Clearance w eGFR Random Glucose Calcium Total Bilirubin AST ALT Alkaline Phosphatase Total Protein Albumin Urine Color Urine Appearance Urine pH Ur Specific [place] Urine Protein Urine Glucose (UA) Urine Ketones Urine Blood Urine Nitrite Urine Bilirubin Urine Urobilinogen Ur Leukocyte Esterase Urine WBC (Auto) Urine RBC (Auto) Urine Bacteria Urine Mucus RPR Titer Nonreactive LABS NOTED. Assessment: 02/16/18 11:55 WITHDRAWAL SYMPTOMS. Plan: CONTINUE DETOX. INCREASE DAILY PO FLUID INTAKE. PRN TIGAN IM FOR VOMITING. PRN IMMODIUM FOR DIARRHEA. CLONIDINE, 0.1 MG PO BID FOR SEVERE WITHDRAWAL SYMPTOMS. PRN FLEXERIL FOR BODY ACHES / MUSCLE SPASMS.
[2018-02-16] MEDS: CYCLOBENZAPRINE HCL 10 MG TABLET (FP) PO PRN (12:57)
[2018-02-16] MEDS ORDERED: TRIMETHOBENZAMIDE HCL 200MG/2ML INJ IM PRN (16:00)
[2018-02-16] MEDS: ZOLPIDEM TARTRATE 5 MG TABLET PO PRN (22:21)
[2018-02-16] MEDS: hydrOXYzine PAMOATE 50 MG CAPSULE (FP) PO PRN (22:21)
[2018-02-16] MEDS: THIAMINE HCL 100 MG TABLET (FP) PO SCH (22:22)
[2018-02-17] MEDS ORDERED: METHADONE HCL 40 MG DISPERSABLE TABLET ONE (04:42)
[2018-02-17] MEDS ORDERED: METHADONE HCL 10 MG TABLET ONE (04:42)
[2018-02-17] MEDS: diazePAM 5 MG TABLET PO PRN ×2 (05:28→12:33)
[2018-02-17] MEDS: METHADONE 80 MG, METHADONE 10 MG PO SCH (05:28)
[2018-02-17] MEDS: cloNIDine HCL 0.1 MG TABLET PO SCH ×2 (10:35→22:27)
[2018-02-17] MEDS: ESCITALOPRAM OXALATE 10 MG TABLET (FP) PO SCH (10:35)
[2018-02-17] MEDS: ARIPiprazole 10 MG TABLET PO SCH (10:35)
[2018-02-17] MEDS: PRENATAL VITAMINS W/ FOLIC ACID TABLET (FP) PO SCH (10:35)
[2018-02-17] MEDS: diazePAM 5 MG TABLET PO SCH ×2 (10:35→22:27)
[2018-02-17] MEDS: NICOTINE 14 MG/24 HOURS TOPICAL PATCH TD SCH (10:36)
--- NOTE | 2018-02-17 16:23 | PN ---
BHS Progress Note (SOAP) Subjective: Anxious, Tremors, Body Aches, Nausea. Objective: PATIENT A & O X 3, OBSERVED AMBULATING ON UNIT. NO ACUTE DISTRESS. 02/17/18 16:22 Vital Signs Temperature 96.9 F L 02/17/18 14:38 Pulse Rate 68 02/17/18 14:38 Respiratory Rate 20 02/17/18 14:38 Blood Pressure 115/73 02/17/18 14:38 O2 Sat by Pulse Oximetry (%) Laboratory Tests 02/14/18 02/15/18 02/15/18 23:20 07:00 07:00 WBC 8.1 RBC 4.76 Hgb 15.2 D Hct 45.0 MCV 94.7 MCH 31.9 MCHC 33.7 RDW 13.8 Plt Count 213 MPV 8.9 Sodium 140 Potassium 4.4 Chloride 104 Carbon Dioxide 31 Anion Gap 5 L BUN 19 H Creatinine 0.8 Creat Clearance w eGFR > 60 Random Glucose 88 Calcium 9.3 Total Bilirubin 0.7 D AST 48 H D ALT 62 D Alkaline Phosphatase 95 Total Protein 7.7 Albumin 4.3 Urine Color Yellow Urine Appearance Turbid Urine pH 5.0 D Ur Specific [place] 1.024 Urine Protein Negative Urine Glucose (UA) Negative Urine Ketones Negative Urine Blood Negative Urine Nitrite Negative Urine Bilirubin Negative Urine Urobilinogen Negative Ur Leukocyte Esterase Trace Urine WBC (Auto) 9 Urine RBC (Auto) None Urine Bacteria Moderate Urine Mucus Moderate RPR Titer 02/15/18 07:00 WBC RBC Hgb Hct MCV MCH MCHC RDW Plt Count MPV Sodium Potassium Chloride Carbon Dioxide Anion Gap BUN Creatinine Creat Clearance w eGFR Random Glucose Calcium Total Bilirubin AST ALT Alkaline Phosphatase Total Protein Albumin Urine Color Urine Appearance Urine pH Ur Specific [place] Urine Protein Urine Glucose (UA) Urine Ketones Urine Blood Urine Nitrite Urine Bilirubin Urine Urobilinogen Ur Leukocyte Esterase Urine WBC (Auto) Urine RBC (Auto) Urine Bacteria Urine Mucus RPR Titer Nonreactive LABS NOTED. Assessment: 02/17/18 16:22 WITHDRAWAL SYMPTOMS. Plan: CONTINUE DETOX.
[2018-02-17] MEDS: hydrOXYzine PAMOATE 50 MG CAPSULE (FP) PO PRN (17:16)
[2018-02-17] MEDS: THIAMINE HCL 100 MG TABLET (FP) PO SCH (22:27)
[2018-02-17] MEDS: CYCLOBENZAPRINE HCL 10 MG TABLET (FP) PO PRN (22:29)
[2018-02-18] MEDS ORDERED: METHADONE HCL 40 MG DISPERSABLE TABLET ONE (04:39)
[2018-02-18] MEDS ORDERED: METHADONE HCL 10 MG TABLET ONE (04:39)
[2018-02-18] MEDS: METHADONE 80 MG, METHADONE 10 MG PO SCH (05:53)
[2018-02-18] MEDS: hydrOXYzine PAMOATE 50 MG CAPSULE (FP) PO PRN (05:53)
[2018-02-18] MEDS: CYCLOBENZAPRINE HCL 10 MG TABLET (FP) PO PRN (05:53)
[2018-02-18 06:48] VITALS: BP 110/67; PULSE 74; TEMP 97.4
[2018-02-18] MEDS: ESCITALOPRAM OXALATE 10 MG TABLET (FP) PO SCH (09:15)
[2018-02-18] MEDS ORDERED: diazePAM 5 MG TABLET PO SCH (10:00)
--- NOTE | 2018-02-18 20:33 | DS ---
[facility] Detox Discharge Summary Admission Date: 02/14/18 Discharge Date: 02/18/18 - History Present History: Alcohol Dependence, Opioid Dependence, Sedative Dependence, MMTP Additional Comments: PATIENT RETURNING TO [facility] ([place], [place] FOR AFTERCARE. PATIENT WAS DISCHARGED FROM DETOX UNIT IN STABLE MEDICAL CONDITION. Pertinent Past History: Asthma, Anemia, Depression, History of NC, MMTP, Nicotine Dependence, COPD ( Chronic Bronchitis), History of Hep C, Insomnia, Chronic Back Pain. - Physical Exam Results Vital Signs: Vital Signs Temperature 97.4 F L 02/18/18 06:47 Pulse Rate 74 02/18/18 06:47 Respiratory Rate 18 02/18/18 06:47 Blood Pressure 110/67 02/18/18 06:47 O2 Sat by Pulse Oximetry (%) Pertinent Admission Physical Exam Findings: WITHDRAWAL SYMPTOMS. Laboratory Tests 02/14/18 02/15/18 02/15/18 23:20 07:00 07:00 WBC 8.1 RBC 4.76 Hgb 15.2 D Hct 45.0 MCV 94.7 MCH 31.9 MCHC 33.7 RDW 13.8 Plt Count 213 MPV 8.9 Sodium 140 Potassium 4.4 Chloride 104 Carbon Dioxide 31 Anion Gap 5 L BUN 19 H Creatinine 0.8 Creat Clearance w eGFR > 60 Random Glucose 88 Calcium 9.3 Total Bilirubin 0.7 D AST 48 H D ALT 62 D Alkaline Phosphatase 95 Total Protein 7.7 Albumin 4.3 Urine Color Yellow Urine Appearance Turbid Urine pH 5.0 D Ur Specific [place] 1.024 Urine Protein Negative Urine Glucose (UA) Negative Urine Ketones Negative Urine Blood Negative Urine Nitrite Negative Urine Bilirubin Negative Urine Urobilinogen Negative Ur Leukocyte Esterase Trace Urine WBC (Auto) 9 Urine RBC (Auto) None Urine Bacteria Moderate Urine Mucus Moderate RPR Titer 02/15/18 07:00 WBC RBC Hgb Hct MCV MCH MCHC RDW Plt Count MPV Sodium Potassium Chloride Carbon Dioxide Anion Gap BUN Creatinine Creat Clearance w eGFR Random Glucose Calcium Total Bilirubin AST ALT Alkaline Phosphatase Total Protein Albumin Urine Color Urine Appearance Urine pH Ur Specific [place] Urine Protein Urine Glucose (UA) Urine Ketones Urine Blood Urine Nitrite Urine Bilirubin Urine Urobilinogen Ur Leukocyte Esterase Urine WBC (Auto) Urine RBC (Auto) Urine Bacteria Urine Mucus RPR Titer Nonreactive LABS NOTED. - Treatment Hospital Course: Detox Protocol Followed, Detoxed Safely, Responded well, Discharged Condition Good Patient has Accepted a Rehab Referral to: PATIENT RETURNING TO [facility] ([place], [place] - Medication Discharge Medications: Ambulatory Orders Albuterol Sulfate Inhaler - [Ventolin Hfa Inhaler -] 2 inh PO Q6H PRN 12/14/16 Aripiprazole [Abilify -] 10 mg PO DAILY #30 tablet 06/01/17 Escitalopram Oxalate [Lexapro -] 10 mg PO DAILY 11/28/17 Fluticasone Propionate [Flovent Hfa] 2 inh IH BID 11/28/17 Naproxen [Naprosyn -] 500 mg PO BID 11/28/17 - Diagnosis (1) Alcohol dependence with uncomplicated withdrawal Status: Acute (2) Cannabis dependence, uncomplicated Status: Acute (3) Nicotine dependence Status: Acute Qualifiers: Nicotine product type: cigarettes Substance use status: in withdrawal Qualified Code(s): F17.213 - Nicotine dependence, cigarettes, with withdrawal (4) PCP dependence Status: Acute (5) COPD (chronic obstructive pulmonary disease) Status: Chronic Qualifiers: COPD type: chronic bronchitis Chronic bronchitis type: unspecified Qualified Code(s): J42 - Unspecified chronic bronchitis (6) Methadone maintenance therapy patient Status: Chronic (7) Hepatitis C Status: Resolved Qualifiers: Viral hepatitis chronicity: chronic Hepatic coma status: without hepatic coma Qualified Code(s): B18.2 - Chronic viral hepatitis C (8) Myocardial infarct, old Status: Resolved (9) Asthma Status: Chronic Qualifiers: Asthma severity: mild Asthma persistence: unspecified Asthma complication type: uncomplicated Qualified Code(s): J45.909 - Unspecified asthma, uncomplicated (10) Chronic back pain Status: Chronic Qualifiers: Back pain location: low back pain Back pain laterality: unspecified Sciatica presence: unspecified whether sciatica present Qualified Code(s): M54.5 - Low back pain; G89.29 - Other chronic pain; G89.29 - Other chronic pain (11) Sedative, hypnotic or anxiolytic dependence with withdrawal, uncomplicated Status: Acute (12) MDD (major depressive disorder) Status: Chronic Qualifiers: Major depression recurrence: recurrent Active/Remission status: remission status unspecified Qualified Code(s): F33.9 - Major depressive disorder, recurrent, unspecified (13) Substance induced mood disorder Status: Acute - AMA Did Patient Leave Against Medical Advice: No
--- NOTE | 2018-02-18 20:33 | PN ---
BHS Progress Note (SOAP) Subjective: Patient denies current Detox symptoms and reports that he feels well overall. Objective: PATIENT A & O X 3, OBSERVED AMBULATING ON UNIT. NO ACUTE DISTRESS. 02/18/18 20:32 Vital Signs Temperature 97.4 F L 02/18/18 06:47 Pulse Rate 74 02/18/18 06:47 Respiratory Rate 18 02/18/18 06:47 Blood Pressure 110/67 02/18/18 06:47 O2 Sat by Pulse Oximetry (%) Laboratory Tests 02/14/18 02/15/18 02/15/18 23:20 07:00 07:00 WBC 8.1 RBC 4.76 Hgb 15.2 D Hct 45.0 MCV 94.7 MCH 31.9 MCHC 33.7 RDW 13.8 Plt Count 213 MPV 8.9 Sodium 140 Potassium 4.4 Chloride 104 Carbon Dioxide 31 Anion Gap 5 L BUN 19 H Creatinine 0.8 Creat Clearance w eGFR > 60 Random Glucose 88 Calcium 9.3 Total Bilirubin 0.7 D AST 48 H D ALT 62 D Alkaline Phosphatase 95 Total Protein 7.7 Albumin 4.3 Urine Color Yellow Urine Appearance Turbid Urine pH 5.0 D Ur Specific [place] 1.024 Urine Protein Negative Urine Glucose (UA) Negative Urine Ketones Negative Urine Blood Negative Urine Nitrite Negative Urine Bilirubin Negative Urine Urobilinogen Negative Ur Leukocyte Esterase Trace Urine WBC (Auto) 9 Urine RBC (Auto) None Urine Bacteria Moderate Urine Mucus Moderate RPR Titer 02/15/18 07:00 WBC RBC Hgb Hct MCV MCH MCHC RDW Plt Count MPV Sodium Potassium Chloride Carbon Dioxide Anion Gap BUN Creatinine Creat Clearance w eGFR Random Glucose Calcium Total Bilirubin AST ALT Alkaline Phosphatase Total Protein Albumin Urine Color Urine Appearance Urine pH Ur Specific [place] Urine Protein Urine Glucose (UA) Urine Ketones Urine Blood Urine Nitrite Urine Bilirubin Urine Urobilinogen Ur Leukocyte Esterase Urine WBC (Auto) Urine RBC (Auto) Urine Bacteria Urine Mucus RPR Titer Nonreactive LABS NOTED. Assessment: 02/18/18 20:32 COMPLETION OF DETOX REGIMEN. Plan: PATIENT SCHEDULED FOR DISCHARGE FROM DETOX UNIT TODAY.
== END 2018-02-18 09:25 | disposition home or self-care (01) | DRG 773 ==
LOC: YASAS 14:09 → Y3N 16:34
PROVIDERS: ADMIT Internal Medicine; ATTEND Internal Medicine
PROC: HZ2ZZZZ Detoxification Services for Substance Abuse Treatment (ICD-10-PCS; principal; 2018-02-14)
DX: F10.230 Alcohol dependence with withdrawal, uncomplicated (principal); F11.20 Opioid dependence, uncomplicated; F13.230 Sedative, hypnotic or anxiolytic dependence with withdrawal, uncomplicated; F16.20 Hallucinogen dependence, uncomplicated; F12.20 Cannabis dependence, uncomplicated; F17.213 Nicotine dependence, cigarettes, with withdrawal; F33.9 Major depressive disorder, recurrent, unspecified; F19.24 Other psychoactive substance dependence with psychoactive substance-induced mood disorder; J42 Unspecified chronic bronchitis; J45.909 Unspecified asthma, uncomplicated; B18.2 Chronic viral hepatitis C; I25.2 Old myocardial infarction; M54.5 Low back pain; G89.29 Other chronic pain; D64.9 Anemia, unspecified
CPT/HCPCS: 36415; 80053; 81003; 81015; 85027; 86593; 93005; 93010; J0735

== ENCOUNTER 2018-04-03 12:34 | Inpatient (IN) | payer OTHER ==
[2018-04-03 13:50] VITALS: BMI 22.9
--- NOTE | 2018-04-03 14:28 | HP ---
CIWA Score - CIWA Score Nausea/Vomitin Muscle Tremors: 3 Anxiety: 3 Agitation: 3 Paroxysmal Sweats: 1-Minimal Palms Moist Orientation: 0-Oriented Tacttile Disturbances: 1-Very Mild Itch/Numbness Auditory Disturbances: 1-Very Mild Visual Disturbances: 0-None Headache: 2-Mild CIWA-Ar Total Score: 17 Admission ROS BHS - HPI Chief Complaint: i need help to stop drinking alcohol,klonopin,pcp,k2 Allergies/Adverse Reactions: Allergies Allergy/AdvReac Type Severity Reaction Status Date / Time No Known Allergies Allergy Verified 04/03/18 14:26 History of Present Illness: this 48 years old male with alcohol,klonopin,pcp,k2 dependence,seeking detox, withdrawal symptom,,last detox 02/14/18 to 02/18/18 mmtp 90 mgs/day,last medicated anxiety and depression insomnia hepatitis c longest period of sobriety 5 years Exam Limitations: No Limitations - Ebola screening Have you traveled outside of the country in the last 21 days: No Have you had contact with anyone from an Ebola affected area: No Have you been sick,other than usual withdrawal symptoms: No Do you have a fever: No - Review of Systems Constitutional: Chills, Diaphoresis, Loss of Appetite, Malaise, Night Sweats, Changes in sleep, Weakness, Unintentional Wgt. Loss EENT: reports: Tearing, Nose Congestion Respiratory: reports: No Symptoms reported Cardiac: reports: No Symptoms Reported GI: reports: Nausea, Vomiting, Abdominal cramping : reports: No Symptoms Reported Musculoskeletal: reports: Back Pain, Joint Pain, Muscle Pain, Joint Stiffness Integumentary: reports: Dryness Neuro: reports: Headache, Tremors Endocrine: reports: No Symptoms Reported Hematology: reports: No Symptoms Reported Psychiatric: reports: No Sypmtoms Reported, Judgement Intact, Mood/Affect Appropiate, Orientated x3 (insomnia), Anxious, Depressed Patient History - Patient Medical History Hx Anemia: Yes Hx Asthma: Yes Hx Chronic Obstructive Pulmonary Disease (COPD): Yes Hx Cancer: No Hx Cardiac Disorders: Yes (h/o [place] at age 33 cocaine related) Hx Congestive Heart Failure: No Hx Hypertension: No Hx Hypercholesterolemia: No Hx Pacemaker: No HX Cerebrovascular Accident: No Hx Seizures: No Hx Dementia: No Hx Diabetes: No Hx Gastrointestinal Disorders: No Hx Liver Disease: Yes Hx Genitourinary Disorders: Yes (kidney stone post lithotrypsy 2006) Hx Sexually Transmitted Disorders: No Hx Renal Disease (ESRD): No Hx Thyroid Disease: No Hx Human Immunodeficiency Virus (HIV): No (12/10 negative) Hx Hepatitis C: Yes (undetecable) Hx Depression: Yes Hx Suicide Attempt: No (denies any S/I today) Hx Bipolar Disorder: No Hx Schizophrenia: No Other Medical History: no suicidal,no homicidal,kidney stones - Patient Surgical History Past Surgical History: Yes Hx Neurologic Surgery: No Hx Cataract Extraction: No Hx Cardiac Surgery: No Hx Lung Surgery: No Hx Breast Surgery: No Hx Breast Biopsy: No Hx Abdominal Surgery: No Hx Appendectomy: No Hx Cholecystectomy: No Hx Genitourinary Surgery: No Hx Section: No Hx Orthopedic Surgery: No Other Surgical History: LITHOTRIPSY 2006 Anesthesia Reaction: No - PPD History Previous Implant?: Yes Documented Results: Negative w/proof Implanted On Prior [facility] Admission?: Yes Date: 06/02/17 Results: 0 mm PPD to be Administered?: No - Smoking Cessation Smoking history: Current every day smoker Have you smoked in the past 12 months: Yes Aproximately how many cigarettes per day: 7 Cigars Per Day: 0 Hx Chewing Tobacco Use: No Initiated information on smoking cessation: Yes 'Breaking Loose' booklet given: 04/03/18 - Substance & Tx. History Hx Alcohol Use: Yes Hx Substance Use: Yes Substance Use Type: Alcohol, Cocaine, Marijuana, Tranquilizers Hx Substance Use Treatment: Yes ([facility] 02/14/18 to 02/18/18) - Substances Abused Alcohol Route: Oral Frequency: Daily Amount used: 6PK BEER/1/2 PINT VODKA Age of first use: 10 Date of Last Use: 04/02/18 Benzodiazepine (Klonopin) Route: Oral Frequency: Daily Amount used: 2MG Age of first use: 43 Date of Last Use: 04/02/18 Crack Route: Smoking Frequency: 1-2 times per week Amount used: 2 BAGS Age of first use: 16 Date of Last Use: 04/02/18 Marijuana/Hashish Route: Smoking Frequency: Daily Amount used: 1 BAG Age of first use: 22 Date of Last Use: 04/02/18 K2 Route: Smoking Frequency: Daily Amount used: 6-7 JOINTS Age of first use: 44 Date of Last Use: 04/02/18 Family Disease History - Family Disease History Family Disease History: Heart Disease: Father (HTN,MIdeceased mva), Mother (HTN, AF), Other: Grandparent (CVA), Father Admission Physical Exam [facility] - Vital Signs Vital Signs: Vital Signs - 24 hr 04/03/18 13:47 Temperature 98.2 F Pulse Rate 63 Respiratory 18 Rate Blood Pressure 131/82 - Physical General Appearance: Yes: Moderate Distress, Tremorous, Irritable, Sweating, Anxious HEENTM: Yes: Normal ENT Inspection, RACH, Pharynx Normal Respiratory: Yes: Lungs Clear Neck: Yes: Within Normal Limits, Supple, Trachea in good position Breast: Yes: Within Normal Limits Cardiology: Yes: Within Normal Limits, Regular Rhythm, Regular Rate, S1, S2 Abdominal: Yes: Within Normal Limits, Normal Bowel Sounds, Non Tender, Flat, Soft Genitourinary: Yes: Within Normal Limits Back: Yes: Muscle Spasm Musculoskeletal: Yes: Back pain, Muscle Pain Extremities: Yes: Tremors Neurological: Yes: Within Normal Limits, paint trimmer pipe bowls II-XII NML intact, Fully Oriented, Alert Integumentary: Yes: Dry Lymphatic: Yes: Within Normal Limits - Diagnostic (1) Alcohol dependence with uncomplicated withdrawal Current Visit: No Status: Acute (2) Cannabis dependence, uncomplicated Current Visit: No Status: Acute (3) Nicotine dependence Current Visit: No Status: Acute Qualifiers: Nicotine product type: cigarettes Substance use status: in withdrawal Qualified Code(s): F17.213 - Nicotine dependence, cigarettes, with withdrawal (4) PCP dependence Current Visit: No Status: Acute (5) Sedative, hypnotic or anxiolytic dependence with withdrawal, uncomplicated Current Visit: No Status: Acute (6) Asthma Current Visit: No Status: Chronic Qualifiers: Asthma severity: mild Asthma persistence: unspecified Asthma complication type: uncomplicated Qualified Code(s): J45.909 - Unspecified asthma, uncomplicated (7) Hepatitis C Current Visit: No Status: Resolved Qualifiers: Viral hepatitis chronicity: chronic Hepatic coma status: without hepatic coma Qualified Code(s): B18.2 - Chronic viral hepatitis C (8) Myocardial infarct, old Current Visit: No Status: Resolved (9) Weight loss Current Visit: Yes Status: Acute Cleared for Admission [facility] - Detox or Rehab [facility] Level of Care: Medically Managed Detox Regimen/Protocol: Valium [facility] Breath Alcohol Content Breath Alcohol Content: 0 Urine Drug Screen - Results Drug Screen Negative: No Urine Drug Screen Results: THC-Marijuana, LEXI-Cocaine, MTD-Methadone
[2018-04-03] MEDS ORDERED: P-EPHED 60MG/TRIPROLIDI 2.5MG TABLET PO PRN (14:49)
[2018-04-03] MEDS ORDERED: guaiFENesin/D-METHORPHAN HB 10 ML UNIT-DOSE CUPS PO PRN (14:49)
[2018-04-03] MEDS ORDERED: IBUPROFEN 400 MG TABLET (FP) PO PRN (14:49)
[2018-04-03] MEDS ORDERED: MAGNESIUM HYDROX 2400MG/30ML ORAL SUSPENSION 30 ML CUP PO PRN (14:49)
[2018-04-03] MEDS ORDERED: LOPERAMIDE HCL 2 MG CAPSULE PO PRN (14:49)
[2018-04-03] MEDS ORDERED: MAG HYDROX/AL HYDROX/SIMETH 30 ML UNIT-DOSE CUP PO PRN (14:49)
[2018-04-03] MEDS ORDERED: ACETAMINOPHEN 325 MG TABLET (FP) PO PRN (14:49)
[2018-04-03] MEDS ORDERED: MENTHOL/PHENOL 1 EACH UD MM PRN (14:49)
[2018-04-03] MEDS ORDERED: MAGNESIUM CITRATE 300 ML BOTTLE PO PRN (14:49)
[2018-04-03] MEDS ORDERED: diazePAM 5 MG TABLET PO ONE (15:15)
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
[2018-04-03] MEDS: diazePAM 5 MG TABLET PO PRN (20:09)
[2018-04-03] MEDS ORDERED: MELATONIN 5 MG TABLETS PO PRN (22:00)
[2018-04-03] MEDS: diazePAM 5 MG TABLET PO SCH (22:25)
[2018-04-03] MEDS: THIAMINE HCL 100 MG TABLET (FP) PO SCH (22:25)
[2018-04-03] MEDS: ZOLPIDEM TARTRATE 5 MG TABLET PO PRN (22:25)
[2018-04-03 23:36] LABS: URINE APPEARANCE CLEAR; URINE BILIRUBIN NEGATIVE (<2.0 mg/dL); URINE COLOR STRAW; URINE GLUCOSE (UA) NEGATIVE (NEGATIVE); URINE KETONE NEGATIVE (NEGATIVE); URINE LEUK ESTERASE NEGATIVE (NEGATIVE); URINE NITRITE NEGATIVE (NEGATIVE); URINE PROTEIN NEGATIVE (NEGATIVE); URINE UROBILINOGEN NEGATIVE mg/dL (0.2-1.0)
[2018-04-04] MEDS ORDERED: METHADONE HCL 10 MG TABLET ONE (04:37)
[2018-04-04] MEDS ORDERED: METHADONE HCL 40 MG DISPERSABLE TABLET ONE (04:37)
[2018-04-04] MEDS: diazePAM 5 MG TABLET PO SCH ×3 (05:32→22:26)
[2018-04-04] MEDS: METHADONE 80 MG, METHADONE 10 MG PO SCH (05:32)
[2018-04-04] MEDS ORDERED: METHADONE HCL 40 MG DISPERSABLE TABLET PO SCH (06:00)
[2018-04-04] MEDS: diazePAM 5 MG TABLET PO PRN ×2 (09:14→17:03)
--- NOTE | 2018-04-04 09:39 | EKG ---
Test Reason : Blood Pressure : / mmHG Vent. Rate : 050 BPM Atrial Rate : 050 BPM P-R Int : 154 ms QRS Dur : 094 ms QT Int : 442 ms P-R-T Axes : 057 082 063 degrees QTc Int : 402 ms SINUS BRADYCARDIA POSSIBLE LEFT ATRIAL ENLARGEMENT LEFT VENTRICULAR HYPERTROPHY ABNORMAL ECG WHEN COMPARED WITH ECG OF 14-FEB-2018 18:18, VENT. RATE HAS DECREASED BY 28 BPM Confirmed by CHICO BOYD, GENESIS ([id number]) on 04/04/2018 9:39:05 AM Referred By: Confirmed By:GENESIS GOLDEN MD
[2018-04-04 10:08] LABS: HEMATOCRIT 42.2 % (35.4-49); HEMOGLOBIN 14.2 GM/dL (11.7-16.9); MCH 32.1 pg (25.7-33.7); MCHC 33.7 g/dl (32.0-35.9); MEAN CELL VOLUME 95.3 fl (80-96); MEAN PLT VOLUME 9.9 fl (7.5-11.1); PLATELET COUNT 189 K/MM3 (134-434); RBC 4.43 M/mm3 (4.00-5.60); RDW 13.3 % (11.9-15.9); WHITE BLOOD COUNT 8.5 K/mm3 (4.0-10.0)
[2018-04-04] MEDS: ESCITALOPRAM OXALATE 10 MG TABLET (FP) PO SCH (10:15)
[2018-04-04] MEDS: ARIPiprazole 10 MG TABLET PO SCH (10:15)
[2018-04-04] MEDS: PRENATAL VITAMINS W/ FOLIC ACID TABLET (FP) PO SCH (10:15)
[2018-04-04] MEDS ORDERED: NICOTINE POLACRILEX 2 MG GUM BUC PRN (10:23)
[2018-04-04] MEDS ORDERED: hydrOXYzine PAMOATE 50 MG CAPSULE (FP) PO PRN (10:23)
--- NOTE | 2018-04-04 10:52 | PN ---
S CIWA - CIWA Score Nausea/Vomitin-Mild Nausea/No Vomiting Muscle Tremors: 4-Moderate,w/Arms Extend Anxiety: 3 Agitation: 3 Paroxysmal Sweats: 1-Minimal Palms Moist Orientation: 0-Oriented Tacttile Disturbances: 1-Very Mild Itch/Numbness Auditory Disturbances: 0-None Visual Disturbances: 0-None Headache: 0-None Present CIWA-Ar Total Score: 13 BHS Progress Note (SOAP) Subjective: sweat tremor chronic body ache joint pain Objective: 04/04/18 10:54 Vital Signs Temperature 97.7 F 04/04/18 09:28 Pulse Rate 56 L 04/04/18 09:28 Respiratory Rate 18 04/04/18 09:28 Blood Pressure 114/77 04/04/18 09:28 O2 Sat by Pulse Oximetry (%) Laboratory Last Values WBC 8.5 K/mm3 (4.0-10.0) 04/04/18 05:55 RBC 4.43 M/mm3 (4.00-5.60) 04/04/18 05:55 Hgb 14.2 GM/dL (11.7-16.9) 04/04/18 05:55 Hct 42.2 % (35.4-49) 04/04/18 05:55 MCV 95.3 fl (80-96) 04/04/18 05:55 MCH 32.1 pg (25.7-33.7) 04/04/18 05:55 MCHC 33.7 g/dl (32.0-35.9) 04/04/18 05:55 RDW 13.3 % (11.9-15.9) 04/04/18 05:55 Plt Count 189 K/MM3 (134-434) 04/04/18 05:55 MPV 9.9 fl (7.5-11.1) D 04/04/18 05:55 Urine Color Straw 04/03/18 15:50 Urine Appearance Clear 04/03/18 15:50 Urine pH 7.0 (5.0-8.0) D 04/03/18 15:50 Ur Specific [place] 1.006 (1.001-1.035) 04/03/18 15:50 Urine Protein Negative (NEGATIVE) 04/03/18 15:50 Urine Glucose (UA) Negative (NEGATIVE) 04/03/18 15:50 Urine Ketones Negative (NEGATIVE) 04/03/18 15:50 Urine Blood Negative (NEGATIVE) 04/03/18 15:50 Urine Nitrite Negative (NEGATIVE) 04/03/18 15:50 Urine Bilirubin Negative (<2.0 mg/dL) 04/03/18 15:50 Urine Urobilinogen Negative mg/dL (0.2-1.0) 04/03/18 15:50 Ur Leukocyte Esterase Negative (NEGATIVE) 04/03/18 15:50 lab noted Assessment: 04/04/18 10:54 withdrawal sx 04/04/18 10:55 chronic lumbar pain anxiety Plan: continue detox lidocaine patch to lumbar baclofen prn clonidine prn neurontin tid
[2018-04-04] MEDS: NICOTINE 14 MG/24 HOURS TOPICAL PATCH TD SCH (10:53)
[2018-04-04] MEDS: cloNIDine HCL 0.1 MG TABLET PO PRN ×2 (10:53→22:26)
[2018-04-04 13:23] LABS: CHLORIDE 104 mmol/L (98-107); POTASSIUM 4.2 mmol/L (3.5-5.1); SODIUM 142 mmol/L (136-145)
[2018-04-04 13:53] LABS: ALBUMIN 4.2 g/dl (3.4-5.0); ALK PHOS 82 U/L (45-117); ANION GAP 12 (8-16); BILIRUBIN,TOTAL 0.3 mg/dL (0.2-1.0); BLOOD UREA NITROGEN 12 mg/dL (7-18); CALCIUM 9.3 mg/dL (8.5-10.1); CO2 26 mmol/L (21-32); CREATININE 0.9 mg/dL (0.7-1.3); GLUCOSE,RANDOM 82 mg/dL (74-106); SGOT/AST 22 U/L (15-37); SGPT/ALT 30 U/L (12-78); TOT PROT 7.7 g/dl (6.4-8.2)
[2018-04-04] MEDS: BACLOFEN 10 MG TABLET (FP) PO PRN ×2 (14:06→22:25)
[2018-04-04] MEDS: GABAPENTIN 100 MG CAPSULE (FP) PO SCH ×2 (14:07→22:25)
[2018-04-04] MEDS: LIDOCAINE 5% TOPICAL PATCH TP SCH (14:09)
[2018-04-04] MEDS: THIAMINE HCL 100 MG TABLET (FP) PO SCH (22:25)
[2018-04-04] MEDS: ZOLPIDEM TARTRATE 5 MG TABLET PO PRN (22:26)
[2018-04-04] MEDS: LIDOCAINE PATCH REMOVAL MC SCH (22:52)
[2018-04-05] MEDS ORDERED: METHADONE HCL 10 MG TABLET ONE (04:24)
[2018-04-05] MEDS ORDERED: METHADONE HCL 40 MG DISPERSABLE TABLET ONE (04:24)
--- NOTE | 2018-04-05 09:51 | PN ---
[facility] CIWA - CIWA Score Nausea/Vomitin-No Nausea/No Vomiting Muscle Tremors: 4-Moderate,w/Arms Extend Anxiety: 3 Agitation: 2 Paroxysmal Sweats: 1-Minimal Palms Moist Orientation: 0-Oriented Tacttile Disturbances: 1-Very Mild Itch/Numbness Auditory Disturbances: 0-None Visual Disturbances: 0-None Headache: 0-None Present CIWA-Ar Total Score: 11 BHS Progress Note (SOAP) Subjective: sweat tremor anxiety trouble sleep at night Objective: 04/05/18 09:50 Vital Signs Temperature 97.7 F 04/05/18 09:12 Pulse Rate 61 04/05/18 09:12 Respiratory Rate 18 04/05/18 09:12 Blood Pressure 103/61 04/05/18 09:12 O2 Sat by Pulse Oximetry (%) Laboratory Last Values WBC 8.5 K/mm3 (4.0-10.0) 04/04/18 05:55 RBC 4.43 M/mm3 (4.00-5.60) 04/04/18 05:55 Hgb 14.2 GM/dL (11.7-16.9) 04/04/18 05:55 Hct 42.2 % (35.4-49) 04/04/18 05:55 MCV 95.3 fl (80-96) 04/04/18 05:55 MCH 32.1 pg (25.7-33.7) 04/04/18 05:55 MCHC 33.7 g/dl (32.0-35.9) 04/04/18 05:55 RDW 13.3 % (11.9-15.9) 04/04/18 05:55 Plt Count 189 K/MM3 (134-434) 04/04/18 05:55 MPV 9.9 fl (7.5-11.1) D 04/04/18 05:55 Sodium 142 mmol/L (136-145) 04/04/18 05:55 Potassium 4.2 mmol/L (3.5-5.1) 04/04/18 05:55 Chloride 104 mmol/L (98-107) 04/04/18 05:55 Carbon Dioxide 26 mmol/L (21-32) 04/04/18 05:55 Anion Gap 12 (8-16) 04/04/18 05:55 BUN 12 mg/dL (7-18) D 04/04/18 05:55 Creatinine 0.9 mg/dL (0.7-1.3) 04/04/18 05:55 Creat Clearance w eGFR > 60 (>60) 04/04/18 05:55 Random Glucose 82 mg/dL (74-106) 04/04/18 05:55 Calcium 9.3 mg/dL (8.5-10.1) 04/04/18 05:55 Total Bilirubin 0.3 mg/dL (0.2-1.0) D 04/04/18 05:55 AST 22 U/L (15-37) D 04/04/18 05:55 ALT 30 U/L (12-78) D 04/04/18 05:55 Alkaline Phosphatase 82 U/L (45-117) 04/04/18 05:55 Total Protein 7.7 g/dl (6.4-8.2) 04/04/18 05:55 Albumin 4.2 g/dl (3.4-5.0) 04/04/18 05:55 Urine Color Straw 04/03/18 15:50 Urine Appearance Clear 04/03/18 15:50 Urine pH 7.0 (5.0-8.0) D 04/03/18 15:50 Ur Specific [place] 1.006 (1.001-1.035) 04/03/18 15:50 Urine Protein Negative (NEGATIVE) 04/03/18 15:50 Urine Glucose (UA) Negative (NEGATIVE) 04/03/18 15:50 Urine Ketones Negative (NEGATIVE) 04/03/18 15:50 Urine Blood Negative (NEGATIVE) 04/03/18 15:50 Urine Nitrite Negative (NEGATIVE) 04/03/18 15:50 Urine Bilirubin Negative (<2.0 mg/dL) 04/03/18 15:50 Urine Urobilinogen Negative mg/dL (0.2-1.0) 04/03/18 15:50 Ur Leukocyte Esterase Negative (NEGATIVE) 04/03/18 15:50 RPR Titer Nonreactive (NONREACTIVE) 04/04/18 05:55 lab noted Assessment: 04/05/18 09:50 withdrawal sx Plan: continue detox
[2018-04-05] MEDS: PRENATAL VITAMINS W/ FOLIC ACID TABLET (FP) PO SCH (10:19)
[2018-04-05] MEDS: ARIPiprazole 10 MG TABLET PO SCH (10:19)
[2018-04-05] MEDS: diazePAM 5 MG TABLET PO SCH ×2 (10:19→22:29)
[2018-04-05] MEDS: LIDOCAINE 5% TOPICAL PATCH TP SCH (10:19)
[2018-04-05] MEDS: ESCITALOPRAM OXALATE 10 MG TABLET (FP) PO SCH (10:19)
[2018-04-05] MEDS: NICOTINE 14 MG/24 HOURS TOPICAL PATCH TD SCH (10:20)
[2018-04-05] MEDS: METHADONE 80 MG, METHADONE 10 MG PO SCH (12:20)
[2018-04-05] MEDS: GABAPENTIN 100 MG CAPSULE (FP) PO SCH ×3 (12:20→22:29)
[2018-04-05] MEDS: diazePAM 5 MG TABLET PO PRN ×2 (12:44→16:57)
[2018-04-05] MEDS: THIAMINE HCL 100 MG TABLET (FP) PO SCH (22:28)
[2018-04-05] MEDS: cloNIDine HCL 0.1 MG TABLET PO PRN (22:28)
[2018-04-05] MEDS: ZOLPIDEM TARTRATE 5 MG TABLET PO PRN (22:29)
[2018-04-05] MEDS: BACLOFEN 10 MG TABLET (FP) PO PRN (22:29)
[2018-04-05] MEDS: LIDOCAINE PATCH REMOVAL MC SCH (23:18)
[2018-04-06] MEDS ORDERED: METHADONE HCL 40 MG DISPERSABLE TABLET ONE (04:46)
[2018-04-06] MEDS ORDERED: METHADONE HCL 10 MG TABLET ONE (04:46)
[2018-04-06] MEDS: GABAPENTIN 100 MG CAPSULE (FP) PO SCH ×3 (05:47→22:30)
[2018-04-06] MEDS: METHADONE 80 MG, METHADONE 10 MG PO SCH (05:47)
[2018-04-06] MEDS: diazePAM 5 MG TABLET PO PRN ×2 (06:17→13:14)
[2018-04-06] MEDS: ARIPiprazole 10 MG TABLET PO SCH (10:58)
[2018-04-06] MEDS: diazePAM 5 MG TABLET PO SCH ×2 (10:58→22:30)
[2018-04-06] MEDS: PRENATAL VITAMINS W/ FOLIC ACID TABLET (FP) PO SCH (10:58)
[2018-04-06] MEDS: NICOTINE 14 MG/24 HOURS TOPICAL PATCH TD SCH (10:59)
[2018-04-06] MEDS: ESCITALOPRAM OXALATE 10 MG TABLET (FP) PO SCH (10:59)
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
[2018-04-06] MEDS: LIDOCAINE 5% TOPICAL PATCH TP SCH (11:01)
[2018-04-06] MEDS ORDERED: NAPROXEN 500 MG TABLET (FP) PO SCH (22:00)
[2018-04-06 22:30] VITALS: PULSE 67
[2018-04-06] MEDS: THIAMINE HCL 100 MG TABLET (FP) PO SCH (22:30)
[2018-04-06] MEDS: BACLOFEN 10 MG TABLET (FP) PO PRN (22:30)
[2018-04-06] MEDS: cloNIDine HCL 0.1 MG TABLET PO PRN (22:30)
[2018-04-06] MEDS: ZOLPIDEM TARTRATE 5 MG TABLET PO PRN (22:30)
[2018-04-06] MEDS: LIDOCAINE PATCH REMOVAL MC SCH (23:32)
[2018-04-07] MEDS ORDERED: METHADONE HCL 10 MG TABLET ONE (05:06)
[2018-04-07] MEDS ORDERED: METHADONE HCL 40 MG DISPERSABLE TABLET ONE (05:06)
[2018-04-07] MEDS: METHADONE 80 MG, METHADONE 10 MG PO SCH (05:35)
[2018-04-07] MEDS: GABAPENTIN 100 MG CAPSULE (FP) PO SCH (05:35)
[2018-04-07 06:25] VITALS: BP 121/80; TEMP 95.9
[2018-04-07] MEDS ORDERED: diazePAM 5 MG TABLET PO SCH (10:00)
--- NOTE | 2018-04-07 21:29 | DS ---
[facility] Detox Discharge Summary Admission Date: 04/03/18 Discharge Date: 04/07/18 - History Additional Comments: pt discharged after completing detox - Physical Exam Results Vital Signs: Vital Signs Temperature 95.9 F L 04/07/18 06:00 Pulse Rate 67 04/07/18 06:00 Respiratory Rate 18 04/07/18 06:00 Blood Pressure 121/80 04/07/18 06:00 O2 Sat by Pulse Oximetry (%) - Treatment Hospital Course: Detox Protocol Followed, Detoxed Safely, Responded well, Discharged Condition Good - Medication Discharge Medications: Ambulatory Orders Albuterol Sulfate Inhaler - [Ventolin Hfa Inhaler -] 2 inh PO Q6H PRN 12/14/16 Aripiprazole [Abilify -] 10 mg PO DAILY #30 tablet 06/01/17 Escitalopram Oxalate [Lexapro -] 10 mg PO DAILY 11/28/17 Fluticasone Propionate [Flovent Hfa] 2 inh IH BID 11/28/17 - Diagnosis (1) Alcohol dependence with uncomplicated withdrawal Status: Acute (2) Cannabis dependence, uncomplicated Status: Chronic (3) Cocaine dependence Status: Chronic Qualifiers: Substance use status: uncomplicated Qualified Code(s): F14.20 - Cocaine dependence, uncomplicated (4) Nicotine dependence Status: Chronic Qualifiers: Nicotine product type: cigarettes Substance use status: in withdrawal Qualified Code(s): F17.213 - Nicotine dependence, cigarettes, with withdrawal (5) PCP dependence Status: Chronic (6) Sedative, hypnotic or anxiolytic dependence with withdrawal, uncomplicated Status: Chronic (7) Substance induced mood disorder Status: Chronic (8) Substance-induced sleep disorder Status: Chronic - AMA Did Patient Leave Against Medical Advice: No
== END 2018-04-07 06:56 | disposition home or self-care (01) | DRG 773 ==
LOC: YASAS 12:34 → Y6N 14:59
PROVIDERS: ADMIT Surgery; ATTEND Surgery
PROC: HZ2ZZZZ Detoxification Services for Substance Abuse Treatment (ICD-10-PCS; principal; 2018-04-03)
DX: F10.230 Alcohol dependence with withdrawal, uncomplicated (principal); F11.20 Opioid dependence, uncomplicated; F13.230 Sedative, hypnotic or anxiolytic dependence with withdrawal, uncomplicated; F16.20 Hallucinogen dependence, uncomplicated; F14.20 Cocaine dependence, uncomplicated; F12.20 Cannabis dependence, uncomplicated; F17.210 Nicotine dependence, cigarettes, uncomplicated; F33.9 Major depressive disorder, recurrent, unspecified; F41.9 Anxiety disorder, unspecified; F19.24 Other psychoactive substance dependence with psychoactive substance-induced mood disorder; F19.282 Other psychoactive substance dependence with psychoactive substance-induced sleep disorder; I25.2 Old myocardial infarction; J45.909 Unspecified asthma, uncomplicated; J42 Unspecified chronic bronchitis; M54.5 Low back pain; G89.29 Other chronic pain; B18.2 Chronic viral hepatitis C; G47.00 Insomnia, unspecified; Z87.898 Personal history of other specified conditions
CPT/HCPCS: 36415; 80053; 81003; 85027; 86593; 93005; 93010; J0475; J0735

== ENCOUNTER 2018-05-29 10:56 | Inpatient (IN) | payer OTHER ==
[2018-05-29 12:22] VITALS: BMI 22.1
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
[2018-05-29] MEDS ORDERED: MAGNESIUM CITRATE 300 ML BOTTLE PO PRN (16:02)
[2018-05-29] MEDS ORDERED: IBUPROFEN 400 MG TABLET (FP) PO PRN (16:02)
[2018-05-29] MEDS ORDERED: MAG HYDROX/AL HYDROX/SIMETH 30 ML UNIT-DOSE CUP PO PRN (16:02)
[2018-05-29] MEDS ORDERED: LOPERAMIDE HCL 2 MG CAPSULE PO PRN (16:02)
[2018-05-29] MEDS ORDERED: ACETAMINOPHEN 325 MG TABLET (FP) PO PRN (16:02)
[2018-05-29] MEDS ORDERED: MENTHOL/PHENOL 1 EACH UD MM PRN (16:02)
[2018-05-29] MEDS ORDERED: P-EPHED 60MG/TRIPROLIDI 2.5MG TABLET PO PRN (16:02)
[2018-05-29] MEDS ORDERED: NICOTINE POLACRILEX 2 MG GUM BC PRN (16:02)
[2018-05-29] MEDS ORDERED: MAGNESIUM HYDROX 2400MG/30ML ORAL SUSPENSION 30 ML CUP PO PRN (16:02)
[2018-05-29] MEDS ORDERED: guaiFENesin/D-METHORPHAN HB 10 ML UNIT-DOSE CUPS PO PRN (16:02)
[2018-05-29] MEDS ORDERED: ALBUTEROL SO4 8 GM HFA INHALER IH PRN (16:06)
[2018-05-29] MEDS ORDERED: diazePAM 5 MG TABLET PO ONE (16:30)
[2018-05-29] MEDS: NICOTINE 14 MG/24 HOURS TOPICAL PATCH TD SCH (17:15)
[2018-05-29] MEDS: diazePAM 5 MG TABLET PO PRN (20:21)
[2018-05-29] MEDS ORDERED: MELATONIN 5 MG TABLETS PO PRN (22:00)
[2018-05-29] MEDS: diazePAM 5 MG TABLET PO SCH (22:04)
[2018-05-29] MEDS: THIAMINE HCL 100 MG TABLET (FP) PO SCH (22:04)
[2018-05-29] MEDS: MOMETASONE FUROATE 220 MCG/IH INHALER IH SCH (22:44)
[2018-05-30 02:57] LABS: URINE APPEARANCE TURBID; URINE BILIRUBIN NEGATIVE (<2.0 mg/dL); URINE COLOR YELLOW; URINE GLUCOSE (UA) NEGATIVE (NEGATIVE); URINE KETONE NEGATIVE (NEGATIVE); URINE LEUK ESTERASE TRACE (NEGATIVE); URINE NITRITE NEGATIVE (NEGATIVE); URINE PROTEIN NEGATIVE (NEGATIVE); URINE UROBILINOGEN NEGATIVE mg/dL (0.2-1.0)
[2018-05-30 03:15] LABS: URINE BACTERIA FEW /hpf (NONE SEEN); URINE MUCUS MODERATE
[2018-05-30] MEDS ORDERED: METHADONE HCL 10 MG TABLET ONE (05:04)
[2018-05-30] MEDS ORDERED: METHADONE HCL 40 MG DISPERSABLE TABLET ONE (05:04)
[2018-05-30] MEDS: METHADONE 80 MG, METHADONE 10 MG PO SCH (05:51)
[2018-05-30] MEDS: diazePAM 5 MG TABLET PO SCH ×3 (05:51→21:31)
[2018-05-30] MEDS ORDERED: METHADONE HCL 10 MG TABLET PO SCH (06:00)
[2018-05-30] MEDS: diazePAM 5 MG TABLET PO PRN ×3 (07:21→16:53)
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
[2018-05-30] MEDS: PRENATAL VITAMINS W/ FOLIC ACID TABLET (FP) PO SCH (10:22)
[2018-05-30] MEDS: ESCITALOPRAM OXALATE 10 MG TABLET (FP) PO SCH (10:23)
[2018-05-30] MEDS: NICOTINE 14 MG/24 HOURS TOPICAL PATCH TD SCH (10:23)
--- NOTE | 2018-05-30 10:29 | EKG ---
Test Reason : Blood Pressure : / mmHG Vent. Rate : 046 BPM Atrial Rate : 046 BPM P-R Int : 166 ms QRS Dur : 096 ms QT Int : 450 ms P-R-T Axes : 068 085 072 degrees QTc Int : 393 ms SINUS BRADYCARDIA OTHERWISE NORMAL ECG WHEN COMPARED WITH ECG OF 03-APR-2018 16:01, NO SIGNIFICANT CHANGE WAS FOUND Confirmed by GENESIS GOLDEN MD ([id number]) on 05/30/2018 10:29:17 AM Referred By: Confirmed By:GENESIS GOLDEN MD
[2018-05-30] MEDS: ARIPiprazole 10 MG TABLET PO SCH (10:33)
[2018-05-30 10:47] LABS: HEMATOCRIT 41.9 % (35.4-49); HEMOGLOBIN 13.9 GM/dL (11.7-16.9); MCH 31.2 pg (25.7-33.7); MCHC 33.2 g/dl (32.0-35.9); MEAN PLT VOLUME 9.4 fl (7.5-11.1); PLATELET COUNT 188 K/MM3 (134-434); RBC 4.46 M/mm3 (4.00-5.60); RDW 13.9 % (11.9-15.9); WHITE BLOOD COUNT 8.9 K/mm3 (4.0-10.0)
[2018-05-30 11:29] LABS: CHLORIDE 105 mmol/L (98-107); POTASSIUM 4.1 mmol/L (3.5-5.1); SODIUM 143 mmol/L (136-145)
[2018-05-30 12:00] LABS: ALBUMIN 4.2 g/dl (3.4-5.0); ALK PHOS 81 U/L (45-117); ANION GAP 11 (8-16); BILIRUBIN,TOTAL 0.5 mg/dL (0.2-1.0); BLOOD UREA NITROGEN 15 mg/dL (7-18); CO2 27 mmol/L (21-32); CREATININE 0.9 mg/dL (0.7-1.3); GLUCOSE,RANDOM 88 mg/dL (74-106); SGOT/AST 24 U/L (15-37); SGPT/ALT 26 U/L (12-78); TOT PROT 7.2 g/dl (6.4-8.2)
--- NOTE | 2018-05-30 12:22 | PN ---
S CIWA - CIWA Score Nausea/Vomitin-No Nausea/No Vomiting Muscle Tremors: 5 Anxiety: 5 Agitation: 3 Paroxysmal Sweats: 1-Minimal Palms Moist Orientation: 0-Oriented Tacttile Disturbances: 0-None Auditory Disturbances: 0-None Visual Disturbances: 0-None Headache: 0-None Present CIWA-Ar Total Score: 14 BHS Progress Note (SOAP) Subjective: PT C/O TREMORS, ANXIETY,IRRITABILITY, INTERMITTENT SLEEP. Objective: 05/30/18 12:20 Vital Signs 05/30/18 05/30/18 06:24 09:44 Temperature 97.8 F 96.7 F L Pulse Rate 64 54 L Respiratory 18 18 Rate Blood Pressure 135/90 123/80 Laboratory Tests 05/29/18 05/30/18 05/30/18 22:30 05:50 05:50 WBC 8.9 RBC 4.46 Hgb 13.9 Hct 41.9 MCV 94.0 MCH 31.2 MCHC 33.2 RDW 13.9 Plt Count 188 MPV 9.4 Sodium 143 Potassium 4.1 Chloride 105 Carbon Dioxide 27 Anion Gap 11 BUN 15 Creatinine 0.9 Creat Clearance w eGFR > 60 Random Glucose 88 Calcium 9.0 Total Bilirubin 0.5 AST 24 ALT 26 Alkaline Phosphatase 81 Total Protein 7.2 Albumin 4.2 Urine Color Yellow Urine Appearance Turbid Urine pH 5.0 D Ur Specific [place] 1.021 Urine Protein Negative Urine Glucose (UA) Negative Urine Ketones Negative Urine Blood Negative Urine Nitrite Negative Urine Bilirubin Negative Urine Urobilinogen Negative Ur Leukocyte Esterase Trace Urine WBC (Auto) 36 Urine RBC (Auto) 2 Urine Bacteria Few Urine Mucus Moderate UA NOTED. Assessment: 05/30/18 12:21 WITHDRAWAL SX Plan: CONTINUE DETOX INCREASE PO FLUIDS REPEAT UA TODAY
[2018-05-30] MEDS: THIAMINE HCL 100 MG TABLET (FP) PO SCH (21:31)
[2018-05-30] MEDS: MOMETASONE FUROATE 220 MCG/IH INHALER IH SCH (21:31)
[2018-05-30] MEDS: ZOLPIDEM TARTRATE 5 MG TABLET PO PRN (21:32)
[2018-05-31] MEDS ORDERED: METHADONE HCL 10 MG TABLET ONE (04:50)
[2018-05-31] MEDS ORDERED: METHADONE HCL 40 MG DISPERSABLE TABLET ONE (04:50)
[2018-05-31] MEDS: METHADONE 80 MG, METHADONE 10 MG PO SCH (05:17)
[2018-05-31] MEDS: diazePAM 5 MG TABLET PO PRN ×3 (05:18→18:50)
[2018-05-31] MEDS ORDERED: hydrOXYzine PAMOATE 50 MG CAPSULE (FP) PO PRN (09:07)
[2018-05-31] MEDS: diazePAM 5 MG TABLET PO SCH ×2 (10:43→22:05)
[2018-05-31] MEDS: ARIPiprazole 10 MG TABLET PO SCH (10:43)
[2018-05-31] MEDS: PRENATAL VITAMINS W/ FOLIC ACID TABLET (FP) PO SCH (10:43)
[2018-05-31] MEDS: ESCITALOPRAM OXALATE 10 MG TABLET (FP) PO SCH (10:43)
[2018-05-31] MEDS: NICOTINE 14 MG/24 HOURS TOPICAL PATCH TD SCH (10:44)
--- NOTE | 2018-05-31 12:20 | PN ---
S CIWA - CIWA Score Nausea/Vomitin-No Nausea/No Vomiting Muscle Tremors: 4-Moderate,w/Arms Extend Anxiety: 4-Mod. Anxious/Guarded Agitation: 4-Moderately Restless Paroxysmal Sweats: 1-Minimal Palms Moist Orientation: 0-Oriented Tacttile Disturbances: 0-None Auditory Disturbances: 0-None Visual Disturbances: 0-None Headache: 0-None Present CIWA-Ar Total Score: 13 S Progress Note (SOAP) Subjective: ANXIETY,SWEATS,IRRITABILITY,AGITATIONS, CHILLS. Objective: 05/31/18 12:16 Vital Signs 05/31/18 05/31/18 06:07 09:26 Temperature 97.5 F L 96.3 F L Pulse Rate 68 57 L Respiratory 18 18 Rate Blood Pressure 121/78 118/81 Laboratory Tests 05/29/18 05/30/18 05/30/18 22:30 05:50 05:50 WBC 8.9 RBC 4.46 Hgb 13.9 Hct 41.9 MCV 94.0 MCH 31.2 MCHC 33.2 RDW 13.9 Plt Count 188 MPV 9.4 Sodium 143 Potassium 4.1 Chloride 105 Carbon Dioxide 27 Anion Gap 11 BUN 15 Creatinine 0.9 Creat Clearance w eGFR > 60 Random Glucose 88 Calcium 9.0 Total Bilirubin 0.5 AST 24 ALT 26 Alkaline Phosphatase 81 Total Protein 7.2 Albumin 4.2 Urine Color Yellow Urine Appearance Turbid Urine pH 5.0 D Ur Specific [place] 1.021 Urine Protein Negative Urine Glucose (UA) Negative Urine Ketones Negative Urine Blood Negative Urine Nitrite Negative Urine Bilirubin Negative Urine Urobilinogen Negative Ur Leukocyte Esterase Trace Urine WBC (Auto) 36 Urine RBC (Auto) 2 Urine Bacteria Few Urine Mucus Moderate RPR Titer 05/30/18 05:50 WBC RBC Hgb Hct MCV MCH MCHC RDW Plt Count MPV Sodium Potassium Chloride Carbon Dioxide Anion Gap BUN Creatinine Creat Clearance w eGFR Random Glucose Calcium Total Bilirubin AST ALT Alkaline Phosphatase Total Protein Albumin Urine Color Urine Appearance Urine pH Ur Specific [place] Urine Protein Urine Glucose (UA) Urine Ketones Urine Blood Urine Nitrite Urine Bilirubin Urine Urobilinogen Ur Leukocyte Esterase Urine WBC (Auto) Urine RBC (Auto) Urine Bacteria Urine Mucus RPR Titer Nonreactive UA NOTED. Assessment: 05/31/18 12:18 WITHDRAWAL SX R/O UTI Plan: CONTINUE DETOX INCREASE PO FLUIDS REPEAT UA RESULT PENDING
[2018-05-31 16:28] LABS: URINE APPEARANCE CLEAR; URINE BILIRUBIN NEGATIVE (<2.0 mg/dL); URINE COLOR LTYELLOW; URINE GLUCOSE (UA) NEGATIVE (NEGATIVE); URINE KETONE NEGATIVE (NEGATIVE); URINE LEUK ESTERASE NEGATIVE (NEGATIVE); URINE NITRITE NEGATIVE (NEGATIVE); URINE PROTEIN NEGATIVE (NEGATIVE); URINE UROBILINOGEN NEGATIVE mg/dL (0.2-1.0)
[2018-05-31] MEDS: THIAMINE HCL 100 MG TABLET (FP) PO SCH (22:05)
[2018-05-31] MEDS: ZOLPIDEM TARTRATE 5 MG TABLET PO PRN (22:05)
[2018-05-31] MEDS: MOMETASONE FUROATE 220 MCG/IH INHALER IH SCH (22:05)
[2018-06-01] MEDS ORDERED: METHADONE HCL 40 MG DISPERSABLE TABLET ONE (02:49)
[2018-06-01] MEDS ORDERED: METHADONE HCL 10 MG TABLET ONE (02:49)
[2018-06-01] MEDS: METHADONE 80 MG, METHADONE 10 MG PO SCH (05:53)
[2018-06-01] MEDS: diazePAM 5 MG TABLET PO PRN ×2 (07:12→14:18)
[2018-06-01] MEDS: diazePAM 5 MG TABLET PO SCH ×2 (10:39→22:05)
[2018-06-01] MEDS: NICOTINE 14 MG/24 HOURS TOPICAL PATCH TD SCH (10:39)
[2018-06-01] MEDS: ESCITALOPRAM OXALATE 10 MG TABLET (FP) PO SCH (10:39)
[2018-06-01] MEDS: ARIPiprazole 10 MG TABLET PO SCH (10:39)
[2018-06-01] MEDS: PRENATAL VITAMINS W/ FOLIC ACID TABLET (FP) PO SCH (10:39)
--- NOTE | 2018-06-01 12:45 | PN ---
BHS Progress Note (SOAP) Subjective: ANXIETY,TREMORS,IRRITABILITY. OOB AMBULATING WITH STAEDY GAIT. Objective: 06/01/18 12:44 Vital Signs 06/01/18 06/01/18 06:07 09:38 Temperature 97 F L 97.2 F L Pulse Rate 68 94 H Respiratory 18 18 Rate Blood Pressure 126/81 119/85 Laboratory Tests 05/29/18 05/30/18 05/30/18 22:30 05:50 05:50 WBC 8.9 RBC 4.46 Hgb 13.9 Hct 41.9 MCV 94.0 MCH 31.2 MCHC 33.2 RDW 13.9 Plt Count 188 MPV 9.4 Sodium 143 Potassium 4.1 Chloride 105 Carbon Dioxide 27 Anion Gap 11 BUN 15 Creatinine 0.9 Creat Clearance w eGFR > 60 Random Glucose 88 Calcium 9.0 Total Bilirubin 0.5 AST 24 ALT 26 Alkaline Phosphatase 81 Total Protein 7.2 Albumin 4.2 Urine Color Yellow Urine Appearance Turbid Urine pH 5.0 D Ur Specific [place] 1.021 Urine Protein Negative Urine Glucose (UA) Negative Urine Ketones Negative Urine Blood Negative Urine Nitrite Negative Urine Bilirubin Negative Urine Urobilinogen Negative Ur Leukocyte Esterase Trace Urine WBC (Auto) 36 Urine RBC (Auto) 2 Urine Bacteria Few Urine Mucus Moderate RPR Titer 05/30/18 05/31/18 05:50 09:30 WBC RBC Hgb Hct MCV MCH MCHC RDW Plt Count MPV Sodium Potassium Chloride Carbon Dioxide Anion Gap BUN Creatinine Creat Clearance w eGFR Random Glucose Calcium Total Bilirubin AST ALT Alkaline Phosphatase Total Protein Albumin Urine Color Ltyellow Urine Appearance Clear Urine pH 6.0 Ur Specific [place] 1.009 Urine Protein Negative Urine Glucose (UA) Negative Urine Ketones Negative Urine Blood Negative Urine Nitrite Negative Urine Bilirubin Negative Urine Urobilinogen Negative Ur Leukocyte Esterase Negative Urine WBC (Auto) Urine RBC (Auto) Urine Bacteria Urine Mucus RPR Titer Nonreactive Assessment: 06/01/18 12:45 WITHDRAWAL SX Plan: CONTINUE DETOX
--- NOTE | 2018-06-01 17:21 | PN ---
S Progress Note Note: NOTIFIED BY RN THAT PATIENT IS HAVING WITHDRAWAL SYMPTOMS AND ANXIETY. PATIENT REFUSING VISTARIL HE STATES IT DOES NOT HELP. WILL ORDER CLONIDINE 0.1MG PO BID AND D/C VISTARIL. CONTINUE TO MONITOR CLINICALLY.
[2018-06-01] MEDS ORDERED: cloNIDine HCL 0.1 MG TABLET PO SCH (22:00)
[2018-06-01] MEDS: THIAMINE HCL 100 MG TABLET (FP) PO SCH (22:05)
[2018-06-01] MEDS: MOMETASONE FUROATE 220 MCG/IH INHALER IH SCH (22:05)
[2018-06-02] MEDS ORDERED: METHADONE HCL 40 MG DISPERSABLE TABLET ONE (04:07)
[2018-06-02] MEDS ORDERED: METHADONE HCL 10 MG TABLET ONE (04:07)
[2018-06-02] MEDS: METHADONE 80 MG, METHADONE 10 MG PO SCH (05:48)
[2018-06-02 06:17] VITALS: BP 111/79; PULSE 70; TEMP 97.2
--- NOTE | 2018-06-02 08:45 | PN ---
BHS Progress Note (SOAP) Subjective: DETOX COMPLETED. PT WAS D/C'D EARLIER TODAY. Objective: 06/02/18 08:43 Vital Signs 06/02/18 06/02/18 03:30 06:16 Temperature 97.2 F L Pulse Rate 70 Respiratory 19 18 Rate Blood Pressure 111/79 Laboratory Tests 05/29/18 05/30/18 05/30/18 22:30 05:50 05:50 WBC 8.9 RBC 4.46 Hgb 13.9 Hct 41.9 MCV 94.0 MCH 31.2 MCHC 33.2 RDW 13.9 Plt Count 188 MPV 9.4 Sodium 143 Potassium 4.1 Chloride 105 Carbon Dioxide 27 Anion Gap 11 BUN 15 Creatinine 0.9 Creat Clearance w eGFR > 60 Random Glucose 88 Calcium 9.0 Total Bilirubin 0.5 AST 24 ALT 26 Alkaline Phosphatase 81 Total Protein 7.2 Albumin 4.2 Urine Color Yellow Urine Appearance Turbid Urine pH 5.0 D Ur Specific [place] 1.021 Urine Protein Negative Urine Glucose (UA) Negative Urine Ketones Negative Urine Blood Negative Urine Nitrite Negative Urine Bilirubin Negative Urine Urobilinogen Negative Ur Leukocyte Esterase Trace Urine WBC (Auto) 36 Urine RBC (Auto) 2 Urine Bacteria Few Urine Mucus Moderate RPR Titer 05/30/18 05/31/18 05:50 09:30 WBC RBC Hgb Hct MCV MCH MCHC RDW Plt Count MPV Sodium Potassium Chloride Carbon Dioxide Anion Gap BUN Creatinine Creat Clearance w eGFR Random Glucose Calcium Total Bilirubin AST ALT Alkaline Phosphatase Total Protein Albumin Urine Color Ltyellow Urine Appearance Clear Urine pH 6.0 Ur Specific [place] 1.009 Urine Protein Negative Urine Glucose (UA) Negative Urine Ketones Negative Urine Blood Negative Urine Nitrite Negative Urine Bilirubin Negative Urine Urobilinogen Negative Ur Leukocyte Esterase Negative Urine WBC (Auto) Urine RBC (Auto) Urine Bacteria Urine Mucus RPR Titer Nonreactive Assessment: 06/02/18 08:43 MEDICALLY STABLE Plan: PT D/C'D TODAY.
--- NOTE | 2018-06-02 08:46 | DS ---
[facility] Detox Discharge Summary Admission Date: 05/29/18 Discharge Date: 06/02/18 - History Present History: Alcohol Dependence Additional Comments: DETOX COMPLETED. Pertinent Past History: PLEASE SEE DX BELOW - Physical Exam Results Vital Signs: Vital Signs Temperature 97.2 F L 06/02/18 06:16 Pulse Rate 70 06/02/18 06:16 Respiratory Rate 18 06/02/18 06:16 Blood Pressure 111/79 06/02/18 06:16 O2 Sat by Pulse Oximetry (%) Pertinent Admission Physical Exam Findings: WITHDRAWAL SX Laboratory Tests 05/29/18 05/30/18 05/30/18 22:30 05:50 05:50 WBC 8.9 RBC 4.46 Hgb 13.9 Hct 41.9 MCV 94.0 MCH 31.2 MCHC 33.2 RDW 13.9 Plt Count 188 MPV 9.4 Sodium 143 Potassium 4.1 Chloride 105 Carbon Dioxide 27 Anion Gap 11 BUN 15 Creatinine 0.9 Creat Clearance w eGFR > 60 Random Glucose 88 Calcium 9.0 Total Bilirubin 0.5 AST 24 ALT 26 Alkaline Phosphatase 81 Total Protein 7.2 Albumin 4.2 Urine Color Yellow Urine Appearance Turbid Urine pH 5.0 D Ur Specific [place] 1.021 Urine Protein Negative Urine Glucose (UA) Negative Urine Ketones Negative Urine Blood Negative Urine Nitrite Negative Urine Bilirubin Negative Urine Urobilinogen Negative Ur Leukocyte Esterase Trace Urine WBC (Auto) 36 Urine RBC (Auto) 2 Urine Bacteria Few Urine Mucus Moderate RPR Titer 05/30/18 05/31/18 05:50 09:30 WBC RBC Hgb Hct MCV MCH MCHC RDW Plt Count MPV Sodium Potassium Chloride Carbon Dioxide Anion Gap BUN Creatinine Creat Clearance w eGFR Random Glucose Calcium Total Bilirubin AST ALT Alkaline Phosphatase Total Protein Albumin Urine Color Ltyellow Urine Appearance Clear Urine pH 6.0 Ur Specific [place] 1.009 Urine Protein Negative Urine Glucose (UA) Negative Urine Ketones Negative Urine Blood Negative Urine Nitrite Negative Urine Bilirubin Negative Urine Urobilinogen Negative Ur Leukocyte Esterase Negative Urine WBC (Auto) Urine RBC (Auto) Urine Bacteria Urine Mucus RPR Titer Nonreactive - Treatment Hospital Course: Detox Protocol Followed, Detoxed Safely, Responded well, Discharged Condition Good - Medication Discharge Medications: Ambulatory Orders Albuterol Sulfate Inhaler - [Ventolin Hfa Inhaler -] 2 inh PO Q6H PRN 12/14/16 Aripiprazole [Abilify -] 10 mg PO DAILY #30 tablet 06/01/17 Escitalopram Oxalate [Lexapro -] 10 mg PO DAILY 11/28/17 Fluticasone Propionate [Flovent Hfa] 2 inh IH BID 11/28/17 Naproxen [Naprosyn] 500 mg PO DAILY 05/29/18 Zolpidem Tartrate [Ambien] 10 mg PO HS 05/30/18 - Diagnosis (1) Alcohol dependence with uncomplicated withdrawal Status: Acute (2) Weight loss Status: Acute (3) Asthma Status: Chronic Qualifiers: Asthma severity: unspecified severity Asthma persistence: unspecified Asthma complication type: uncomplicated Qualified Code(s): J45.909 - Unspecified asthma, uncomplicated (4) COPD (chronic obstructive pulmonary disease) Status: Chronic Qualifiers: COPD type: chronic bronchitis Chronic bronchitis type: unspecified Qualified Code(s): J42 - Unspecified chronic bronchitis (5) Cannabis dependence, uncomplicated Status: Acute (6) Nicotine dependence Status: Acute Qualifiers: Nicotine product type: cigarettes Substance use status: in withdrawal Qualified Code(s): F17.213 - Nicotine dependence, cigarettes, with withdrawal (7) Cocaine dependence Status: Acute Qualifiers: Substance use status: uncomplicated Qualified Code(s): F14.20 - Cocaine dependence, uncomplicated (8) Methadone maintenance therapy patient Status: Chronic (9) Sedative, hypnotic or anxiolytic dependence with withdrawal, uncomplicated Status: Acute (10) Urine abnormality Status: Acute
[2018-06-02] MEDS ORDERED: diazePAM 5 MG TABLET PO SCH (10:00)
== END 2018-06-02 06:50 | disposition home or self-care (01) | DRG 773 ==
LOC: YASAS 10:56 → Y3N 15:32
PROVIDERS: ADMIT Surgery; ATTEND Surgery
PROC: HZ2ZZZZ Detoxification Services for Substance Abuse Treatment (ICD-10-PCS; principal; 2018-05-29)
DX: F10.230 Alcohol dependence with withdrawal, uncomplicated (principal); F11.20 Opioid dependence, uncomplicated; F13.230 Sedative, hypnotic or anxiolytic dependence with withdrawal, uncomplicated; F14.20 Cocaine dependence, uncomplicated; F12.20 Cannabis dependence, uncomplicated; F16.20 Hallucinogen dependence, uncomplicated; F17.213 Nicotine dependence, cigarettes, with withdrawal; F19.24 Other psychoactive substance dependence with psychoactive substance-induced mood disorder; F19.282 Other psychoactive substance dependence with psychoactive substance-induced sleep disorder; J45.909 Unspecified asthma, uncomplicated; J42 Unspecified chronic bronchitis; R82.90 Unspecified abnormal findings in urine; M54.5 Low back pain; G89.29 Other chronic pain; Z87.898 Personal history of other specified conditions
CPT/HCPCS: 36415; 80053; 81003; 81015; 85027; 86593; 93005; 93010; J0735

== ENCOUNTER 2018-07-31 13:17 | Inpatient (IN) | payer OTHER ==
[2018-07-31 14:23] VITALS: BMI 21.6
--- NOTE | 2018-07-31 18:00 | HP ---
CIWA Score - CIWA Score Nausea/Vomitin-Int. Nausea w/Dry Heave Muscle Tremors: 2 Anxiety: 3 Agitation: 4-Moderately Restless Paroxysmal Sweats: 2 Orientation: 0-Oriented Tacttile Disturbances: 0-None Auditory Disturbances: 0-None Visual Disturbances: 0-None Headache: 3-Moderate CIWA-Ar Total Score: 18 Admission ROS S - [facility] Chief Complaint: alcohol and benzo withdrawal Allergies/Adverse Reactions: Allergies Allergy/AdvReac Type Severity Reaction Status Date / Time No Known Allergies Allergy Verified 07/31/18 17:24 History of Present Illness: 48 yo male with hx of nicotine, alcohol, K2, cocaine, marijuana and xanax dependence is here seeking detox, reports frequent relapse. Last detox [facility] -06/08/18. MMTP: Bronson Nicholson ( [phone] on 90 mg, last medicated today. PMHX: asthma , depression and Anxiety. Denies suicidal / homicidal ideation. Denies hx of seizures or blackouts . Denies any legal troubles. Longest period of sobriety five years (1997 - 2002). Reference #: [id number] Others' Prescriptions Patient Name: Ruben Murphy Date: 1970 Address: [address] [place] [address] Sex: Male Rx Written Rx Dispensed Drug Quantity Days Supply Prescriber Name 05/24/2018 05/25/2018 clonazepam 1 mg tablet 60 30 Fidel Jacobsen NP 05/24/2018 05/25/2018 zolpidem tartrate 10 mg tablet 30 30 Fidel Jacobsen, FREDDIE 04/23/2018 04/24/2018 zolpidem tartrate 10 mg tablet 30 30 Fidel Jacobsen, FREDDIE 04/23/2018 04/23/2018 clonazepam 1 mg tablet 60 30 Fidel Jacobsen, FREDDIE 03/26/2018 03/26/2018 clonazepam 1 mg tablet 60 30 Fidel Jacobsen, FREDDIE 03/26/2018 03/26/2018 zolpidem tartrate 10 mg tablet 30 30 Fidel Jacobsen, [employer] 02/22/2018 02/22/2018 clonazepam 1 mg tablet 60 30 Fidel Jacobsen, FREDDIE 02/22/2018 02/22/2018 zolpidem tartrate 5 mg tablet 30 30 Fidel Jacobsen, [employer] 01/25/2018 01/25/2018 zolpidem tartrate 5 mg tablet 30 30 Ann-Marie Fidel, [employer] DEVELOPER 01/25/2018 01/25/2018 clonazepam 1 mg tablet 60 30 Fidel Jacobsen, [employer] DEVEL[employer] 12/25/2017 12/25/2017 clonazepam 1 mg tablet 60 30 Ann-Marie Fidel, [employer] 12/25/2017 12/25/2017 zolpidem tartrate 5 mg tablet 30 30 Ann-Marie Fidel, [employer] DEVELOPER 11/27/2017 11/27/2017 clonazepam 1 mg tablet 60 30 Ann-Marie Fidel, [employer]EL[employer] 11/27/2017 11/27/2017 zolpidem tartrate 5 mg tablet 30 30 Ann-Marie Fidel, [employer] DEVEL[employer] Exam Limitations: No Limitations - Ebola screening Have you traveled outside of the country in the last 21 days: No Have you had contact with anyone from an Ebola affected area: No Have you been sick,other than usual withdrawal symptoms: No Do you have a fever: No - Review of Systems Constitutional: Chills, Loss of Appetite, Changes in sleep, Unintentional Wgt. Loss (20 lbs) EENT: reports: No Symptoms Reported Respiratory: reports: SOB with Exertion Cardiac: reports: No Symptoms Reported GI: reports: Diarrhea, Nausea, Poor Appetite, Poor Fluid Intake, Abdominal cramping : reports: No Symptoms Reported Musculoskeletal: reports: Back Pain Integumentary: reports: No Symptoms Reported Neuro: reports: Headache Endocrine: reports: Increased Thirst Hematology: reports: No Symptoms Reported Psychiatric: reports: Orientated x3, Agitated Patient History - Patient Medical History Hx Anemia: Yes (Uncertain about Type.) Hx Asthma: Yes Hx Chronic Obstructive Pulmonary Disease (COPD): No Hx Cancer: No Hx Cardiac Disorders: No Hx Congestive Heart Failure: No Hx Hypertension: No Hx Hypercholesterolemia: No Hx Pacemaker: No HX Cerebrovascular Accident: No Hx Seizures: No Hx Dementia: No Hx Diabetes: No Hx Gastrointestinal Disorders: No Hx Liver Disease: Yes (Hep C, cleared virus without treatment.) Hx Genitourinary Disorders: No Hx Sexually Transmitted Disorders: No Hx Renal Disease (ESRD): No Hx Thyroid Disease: No Hx Human Immunodeficiency Virus (HIV): No (12/09 negative) Hx Hepatitis C: Yes (undetecable viral load (without treatment).) Hx Depression: Yes Hx Suicide Attempt: No Hx Bipolar Disorder: No Hx Schizophrenia: No - Patient Surgical History Past Surgical History: Yes Hx Neurologic Surgery: No Hx Cataract Extraction: No Hx Cardiac Surgery: No Hx Lung Surgery: No Hx Breast Surgery: No Hx Breast Biopsy: No Hx Abdominal Surgery: No Hx Appendectomy: No Hx Cholecystectomy: No Hx Genitourinary Surgery: No Hx Section: No Hx Orthopedic Surgery: No Other Surgical History: LITHOTRIPSY 2006 Anesthesia Reaction: No - PPD History Previous Implant?: Yes Documented Results: Negative w/proof Implanted On Prior [facility] Admission?: Yes Date: 05/31/18 Results: 0 MM PPD to be Administered?: No - Smoking Cessation Smoking history: Current every day smoker Have you smoked in the past 12 months: Yes Aproximately how many cigarettes per day: 9 Cigars Per Day: 0 Hx Chewing Tobacco Use: No Initiated information on smoking cessation: Yes 'Breaking Loose' booklet given: 07/31/18 - Substance & Tx. History Hx Alcohol Use: Yes Hx Substance Use: Yes Substance Use Type: Alcohol, Tranquilizers Hx Substance Use Treatment: Yes ([facility] 05/29/18 -06/02/18) - Substances Abused Alprazolam (Xanax) Route: Oral Frequency: Daily Amount used: 4-6MG Age of first use: 28 Date of Last Use: 07/29/18 Alcohol Route: Oral Frequency: Daily Amount used: 1 PINT VODKA + 6PK BEER Age of first use: 10 Date of Last Use: 07/30/18 Cocaine Route: Smoking Frequency: Daily Amount used: 2-3 BAGS Age of first use: 16 Date of Last Use: 07/29/18 K2 Route: Smoking Frequency: Daily Amount used: 20 JOINTS Age of first use: 43 Date of Last Use: 07/30/18 Family Disease History - Family Disease History Family Disease History: Heart Disease: Grandparent (CVA; Tongue Ca.), Father ( HTN, [place], , MVA), Mother (HTN, AF), [place]: Grandparent, Other: Grandparent, Father Admission Physical Exam BHS - Vital Signs Vital Signs: Vital Signs - 24 hr 07/31/18 14:20 Temperature 97.7 F Pulse Rate 77 Respiratory 16 Rate Blood Pressure 116/76 - Physical General Appearance: Yes: Disheveled, Moderate Distress, Thin, Irritable, Anxious HEENTM: Yes: EOMI, Hearing grossly Normal, Normal ENT Inspection, Normocephalic , Normal Voice, RACH, Pharynx Normal, Tm's normal, Other (poor dentition) Respiratory: Yes: Chest Non-Tender, No Respiratory Distress, No Accessory Muscle Use, Wheezing Neck: Yes: Within Normal Limits Breast: Yes: Breast Exam Deferred Cardiology: Yes: Regular Rhythm, Regular Rate Abdominal: Yes: Normal Bowel Sounds, Non Tender, Flat, Soft Genitourinary: Yes: Within Normal Limits Back: Yes: Normal Inspection Musculoskeletal: Yes: full range of Motion, Gait Steady, Pelvis Stable, Back pain Extremities: Yes: Normal Capillary Refill, Normal Inspection, Normal Range of Motion, Non-Tender Neurological: Yes: sawmill worker II-XII NML intact, Fully Oriented, Alert, Motor Strength 5/5, Depressed Affect Integumentary: Yes: Normal Color, Warm, Moist Lymphatic: Yes: Within Normal Limits - Diagnostic (1) Sedative hypnotic or anxiolytic dependence Current Visit: Yes Status: Acute (2) Alcohol dependence with uncomplicated withdrawal Current Visit: Yes Status: Acute (3) Cannabis dependence, uncomplicated Current Visit: Yes Status: Acute (4) Cocaine dependence Current Visit: Yes Status: Acute Qualifiers: Substance use status: uncomplicated Qualified Code(s): F14.20 - Cocaine dependence, uncomplicated (5) Chronic pain due to injury Current Visit: Yes Status: Chronic Comment: on Methadone 90 mg qd, dose pending verification. (6) Opioid dependence on agonist therapy Current Visit: Yes Status: Chronic Cleared for Admission [facility] - Detox or Rehab [facility] Level of Care: Medically Managed Detox Regimen/Protocol: Valium [facility] Breath Alcohol Content Breath Alcohol Content: 0.084 Urine Drug Screen - Results Drug Screen Negative: No Urine Drug Screen Results: LEXI-Cocaine, BZO-Benzodiazepines, MTD-Methadone
[2018-07-31] MEDS ORDERED: ALBUTEROL SO4 8 GM HFA INHALER IH PRN (18:04)
[2018-07-31] MEDS ORDERED: IBUPROFEN 400 MG TABLET (FP) PO PRN (18:05)
[2018-07-31] MEDS ORDERED: MAG HYDROX/AL HYDROX/SIMETH 30 ML UNIT-DOSE CUP PO PRN (18:05)
[2018-07-31] MEDS ORDERED: LOPERAMIDE HCL 2 MG CAPSULE PO PRN (18:05)
[2018-07-31] MEDS ORDERED: ACETAMINOPHEN 325 MG TABLET (FP) PO PRN (18:05)
[2018-07-31] MEDS ORDERED: MAGNESIUM HYDROX 2400MG/30ML ORAL SUSPENSION 30 ML CUP PO PRN (18:05)
[2018-07-31] MEDS ORDERED: NICOTINE POLACRILEX 2 MG GUM BC PRN (18:05)
[2018-07-31] MEDS ORDERED: guaiFENesin/D-METHORPHAN HB 10 ML UNIT-DOSE CUPS PO PRN (18:05)
[2018-07-31] MEDS ORDERED: MENTHOL/PHENOL 1 EACH UD MM PRN (18:05)
[2018-07-31] MEDS ORDERED: MAGNESIUM CITRATE 300 ML BOTTLE PO PRN (18:05)
[2018-07-31] MEDS ORDERED: P-EPHED 60MG/TRIPROLIDI 2.5MG TABLET PO PRN (18:05)
[2018-07-31] MEDS ORDERED: ALBUTEROL SO4 0.083% IH SOL 2.5 MG/3 ML VIAL.NEB. NEB PRN (18:23)
[2018-07-31] MEDS ORDERED: diazePAM 5 MG TABLET PO ONE (18:30)
[2018-07-31] MEDS: CYCLOBENZAPRINE HCL 5 MG TABLET PO SCH (21:35)
[2018-07-31] MEDS: NAPROXEN 500 MG TABLET (FP) PO SCH (21:35)
[2018-07-31] MEDS: THIAMINE HCL 100 MG TABLET (FP) PO SCH (21:36)
[2018-07-31] MEDS: diazePAM 5 MG TABLET PO SCH (21:36)
[2018-07-31] MEDS ORDERED: MELATONIN 5 MG TABLETS PO PRN (22:00)
[2018-08-01] MEDS: diazePAM 5 MG TABLET PO SCH ×3 (06:05→22:34)
[2018-08-01] MEDS: CYCLOBENZAPRINE HCL 5 MG TABLET PO SCH ×3 (06:05→22:34)
[2018-08-01] MEDS ORDERED: METHADONE HCL 10 MG TABLET PO ONE (08:43)
--- NOTE | 2018-08-01 08:44 | PN ---
S CIWA - CIWA Score Nausea/Vomitin-Mild Nausea/No Vomiting Muscle Tremors: 5 Anxiety: 4-Mod. Anxious/Guarded Agitation: 4-Moderately Restless Paroxysmal Sweats: 1-Minimal Palms Moist Orientation: 0-Oriented Tacttile Disturbances: 0-None Auditory Disturbances: 0-None Visual Disturbances: 0-None Headache: 1-Very Mild CIWA-Ar Total Score: 16 BHS Progress Note (SOAP) Subjective: patient is in the methadone program dosage verified as 90 mg, the nurse needs to give the methadone as soon as possible. 90 mg methadone ordered one dose now. anxiety tremor sweat headache gi distress Objective: 08/01/18 10:13 Vital Signs Temperature 97.3 F L 08/01/18 09:51 Pulse Rate 71 08/01/18 09:51 Respiratory Rate 18 08/01/18 09:51 Blood Pressure 127/87 08/01/18 09:51 O2 Sat by Pulse Oximetry (%) lab not available Assessment: 08/01/18 10:13 withdrawal sx methadone program 90 mg Plan: continue detox
--- NOTE | 2018-08-01 08:55 | CONSULT ---
[facility] Psychiatric Consult - Data Date of interview: 08/01/18 Admission source: [facility] Identifying data: This is a 48 years old male, single, unemployed, living with roommate, on SSI, with history of MDD,with psychiatric hospitalization history, with history of Alcohol Opioids, Cocine, K-2 and Nicoine dependence, reports Alcoho withdrawal symproms and seeking detox. Crrently on MMTP, Denies suicidal and homicidal ideations. Substance Abuse History: - Smoking Cessation. Smoking history: Current every day smoker. Have you smoked in the past 12 months: Yes. Aproximately how many cigarettes per day: 9. Cigars Per Day: 0. Hx Chewing Tobacco Use: No. Initiated information on smoking cessation: Yes. 'Breaking Loose' booklet given : 07/31/18. - Substance & Tx. History. Hx Alcohol Use: Yes. Hx Substance Use : Yes. Substance Use Type: Alcohol, Tranquilizers. Hx Substance Use Treatment : Yes ([facility] 05/29/18 -06/02/18). - Substances Abused. Alprazolam (Xanax). Route: Oral. Frequency: Daily. Amount used: 4-6MG. Age of first use: 28. Date of Last Use: 07/29/18. Alcohol. Route: Oral. Frequency: Daily. Amount used: 1 PINT VODKA + 6PK BEER. Age of first use: 10. Date of Last Use: 07/30/18. Cocaine. Route: Smoking. Frequency: Daily. Amount used: 2-3 BAGS. Age of first use: 16. Date of Last Use: 07/29/18. K2. Route: Smoking. Frequency: Daily. Amount used: 20 JOINTS. Age of first use: 43. Date of Last Use: 07/30/18 Medical History: MMTP 90mg per day, COPD, LBP, Weight loss history Psychiatric History: Patient has a history of MDD, with most recent psychiatric admission at [facility] for safety, reports history of anxiety and panic attacks, reports taking prior to admission: Ambien 10mg po qhs. Lexapro 10mg poqd. Denies suicidal and homicidal history. Abilify 10mg po qhs Physical/Sexual Abuse/Trauma History: Denies Additional Comment: Ambien 10mg po qhs. Lexapro 10mg poqd. Abilify 10mg po qhs Mental Status Exam - Mental Status Exam Alert and Oriented to: Person Cognitive Function: Fair Patient Appearance: Unkempt Mood: Sad Affect: Mood Congruent Patient Behavior: Cooperative Speech Pattern: Appropriate Voice Loudness: Mildly Soft/Quiet Thought Process: Goal Oriented Thought Disorder: Being Controlled Hallucinations: Denies Suicidal Ideation: Denies Homicidal Ideation: Denies Insight/Judgement: Fair Sleep: Difficulty falling asleep Appetite: Fair Muscle strength/Tone: Normal Gait/Station: Normal Additional Comments: Ambien 10mg po qhs. Lexapro 10mg poqd. Abilify 10mg po qhs Psychiatric Findings - Problem List ([address] 1, 2,3) (1) Alcohol dependence with uncomplicated withdrawal Current Visit: Yes Status: Acute (2) Cannabis dependence, uncomplicated Current Visit: Yes Status: Acute (3) Cocaine dependence Current Visit: Yes Status: Acute Qualifiers: Substance use status: uncomplicated Qualified Code(s): F14.20 - Cocaine dependence, uncomplicated (4) Sedative hypnotic or anxiolytic dependence Current Visit: Yes Status: Acute (5) Opioid dependence on agonist therapy Current Visit: Yes Status: Chronic (6) Nicotine dependence Current Visit: No Status: Acute Qualifiers: Nicotine product type: cigarettes Substance use status: in withdrawal Qualified Code(s): F17.213 - Nicotine dependence, cigarettes, with withdrawal (7) Sedative, hypnotic or anxiolytic dependence with withdrawal, uncomplicated Current Visit: No Status: Acute (8) Substance induced mood disorder Current Visit: No Status: Acute (9) Substance-induced sleep disorder Current Visit: No Status: Acute (10) Weight loss Current Visit: No Status: Acute (11) Asthma Current Visit: No Status: Chronic Qualifiers: Asthma severity: unspecified severity Asthma persistence: unspecified Asthma complication type: uncomplicated Qualified Code(s): J45.909 - Unspecified asthma, uncomplicated (12) COPD (chronic obstructive pulmonary disease) Current Visit: No Status: Chronic Qualifiers: COPD type: chronic bronchitis Chronic bronchitis type: unspecified Qualified Code(s): J42 - Unspecified chronic bronchitis (13) Chronic back pain Current Visit: No Status: Chronic Qualifiers: Back pain location: low back pain Back pain laterality: unspecified Sciatica presence: unspecified whether sciatica present Qualified Code(s): M54.5 - Low back pain; G89.29 - Other chronic pain (14) MDD (major depressive disorder) Current Visit: No Status: Chronic Qualifiers: Major depression recurrence: recurrent Active/Remission status: remission status unspecified Qualified Code(s): F33.9 - Major depressive disorder, recurrent, unspecified Comment: Self-report.On medications and current OPD care. - Initial Treatment Plan Initial Treatment Plan: Ambien 10mg po qhs. Lexapro 10mg poqd. Abilify 10mg po qhs
[2018-08-01] MEDS ORDERED: METHADONE 80 MG, METHADONE 10 MG PO ONE (09:00)
[2018-08-01] MEDS ORDERED: METHADONE HCL 10 MG TABLET ONE (09:02)
[2018-08-01] MEDS ORDERED: METHADONE HCL 40 MG DISPERSABLE TABLET ONE (09:02)
[2018-08-01] MEDS: diazePAM 5 MG TABLET PO PRN ×2 (09:03→14:07)
[2018-08-01] MEDS: hydrOXYzine PAMOATE 50 MG CAPSULE (FP) PO PRN (09:03)
[2018-08-01 10:10] LABS: HEMATOCRIT 50.2 % (35.4-49); HEMOGLOBIN 16.1 GM/dL (11.7-16.9); MCH 30.6 pg (25.7-33.7); MCHC 32.1 g/dl (32.0-35.9); MEAN CELL VOLUME 95.4 fl (80-96); MEAN PLT VOLUME 8.5 fl (7.5-11.1); PLATELET COUNT 230 K/MM3 (134-434); RBC 5.26 M/mm3 (4.00-5.60); RDW 13.9 % (11.9-15.9); WHITE BLOOD COUNT 12.4 K/mm3 (4.0-10.0)
[2018-08-01] MEDS: ARIPiprazole 10 MG TABLET PO SCH (10:28)
[2018-08-01] MEDS: PRENATAL VITAMINS W/ FOLIC ACID TABLET (FP) PO SCH (10:29)
[2018-08-01] MEDS: NAPROXEN 500 MG TABLET (FP) PO SCH ×2 (10:29→22:34)
[2018-08-01] MEDS: NICOTINE 14 MG/24 HOURS TOPICAL PATCH TD SCH (10:29)
[2018-08-01] MEDS: ESCITALOPRAM OXALATE 10 MG TABLET (FP) PO SCH (10:30)
[2018-08-01 10:40] LABS: ALBUMIN 4.6 g/dl (3.4-5.0); ALK PHOS 98 U/L (45-117); ANION GAP 7 MMOL/L (8-16); BILIRUBIN,TOTAL 0.8 mg/dL (0.2-1); BLOOD UREA NITROGEN 16 mg/dL (7-18); CALCIUM 9.9 mg/dL (8.5-10.1); CHLORIDE 100 mmol/L (98-107); CO2 29 mmol/L (21-32); CREATININE 0.8 mg/dL (0.55-1.3); GLUCOSE,RANDOM 77 mg/dL (74-106); POTASSIUM 4.2 mmol/L (3.5-5.1); SGOT/AST 25 U/L (15-37); SGPT/ALT 33 U/L (13-61); SODIUM 136 mmol/L (136-145); TOT PROT 8.3 g/dl (6.4-8.2)
--- NOTE | 2018-08-01 14:49 | EKG ---
Test Reason : Blood Pressure : / mmHG Vent. Rate : 064 BPM Atrial Rate : 064 BPM P-R Int : 156 ms QRS Dur : 082 ms QT Int : 414 ms P-R-T Axes : 066 086 072 degrees QTc Int : 427 ms NORMAL SINUS RHYTHM NORMAL ECG WHEN COMPARED WITH ECG OF 29-MAY-2018 16:52, NO SIGNIFICANT CHANGE WAS FOUND Confirmed by GENESIS GOLDEN MD ([id number]) on 08/01/2018 2:49:16 PM Referred By: Confirmed By:GENESIS GOLDEN MD
[2018-08-01] MEDS: ZOLPIDEM TARTRATE 10 MG TABLET (PARK CARE ONLY) PO PRN (22:33)
[2018-08-01] MEDS: THIAMINE HCL 100 MG TABLET (FP) PO SCH (22:34)
[2018-08-02] MEDS ORDERED: METHADONE HCL 40 MG DISPERSABLE TABLET ONE (04:02)
[2018-08-02] MEDS ORDERED: METHADONE HCL 10 MG TABLET ONE (04:03)
[2018-08-02] MEDS: CYCLOBENZAPRINE HCL 5 MG TABLET PO SCH ×3 (05:58→22:19)
[2018-08-02] MEDS: METHADONE 80 MG, METHADONE 10 MG PO SCH (05:58)
[2018-08-02] MEDS: diazePAM 5 MG TABLET PO PRN ×4 (05:59→18:29)
[2018-08-02] MEDS ORDERED: METHADONE HCL 10 MG TABLET PO SCH (06:00)
--- NOTE | 2018-08-02 10:27 | PN ---
S CIWA - CIWA Score Nausea/Vomitin-Mild Nausea/No Vomiting Muscle Tremors: 3 Anxiety: 3 Agitation: 3 Paroxysmal Sweats: 1-Minimal Palms Moist Orientation: 0-Oriented Tacttile Disturbances: 1-Very Mild Itch/Numbness Auditory Disturbances: 0-None Visual Disturbances: 0-None Headache: 1-Very Mild CIWA-Ar Total Score: 13 BHS Progress Note (SOAP) Subjective: sweat tremor gi distress restlessness anxiety Objective: 08/02/18 10:26 Vital Signs Temperature 97.7 F 08/02/18 07:37 Pulse Rate 82 08/02/18 07:37 Respiratory Rate 18 08/02/18 07:37 Blood Pressure 119/96 08/02/18 07:37 O2 Sat by Pulse Oximetry (%) Laboratory Last Values WBC 12.4 K/mm3 (4.0-10.0) H 08/01/18 07:30 RBC 5.26 M/mm3 (4.00-5.60) 08/01/18 07:30 Hgb 16.1 GM/dL (11.7-16.9) 08/01/18 07:30 Hct 50.2 % (35.4-49) H D 08/01/18 07:30 MCV 95.4 fl (80-96) 08/01/18 07:30 MCH 30.6 pg (25.7-33.7) 08/01/18 07:30 MCHC 32.1 g/dl (32.0-35.9) 08/01/18 07:30 RDW 13.9 % (11.9-15.9) 08/01/18 07:30 Plt Count 230 K/MM3 (134-434) D 08/01/18 07:30 MPV 8.5 fl (7.5-11.1) 08/01/18 07:30 Sodium 136 mmol/L (136-145) 08/01/18 07:30 Potassium 4.2 mmol/L (3.5-5.1) 08/01/18 07:30 Chloride 100 mmol/L (98-107) 08/01/18 07:30 Carbon Dioxide 29 mmol/L (21-32) 08/01/18 07:30 Anion Gap 7 MMOL/L (8-16) L 08/01/18 07:30 BUN 16 mg/dL (7-18) 08/01/18 07:30 Creatinine 0.8 mg/dL (0.55-1.3) 08/01/18 07:30 Creat Clearance w eGFR > 60 (>60) 08/01/18 07:30 Random Glucose 77 mg/dL (74-106) 08/01/18 07:30 Calcium 9.9 mg/dL (8.5-10.1) 08/01/18 07:30 Total Bilirubin 0.8 mg/dL (0.2-1) 08/01/18 07:30 AST 25 U/L (15-37) 08/01/18 07:30 ALT 33 U/L (13-61) 08/01/18 07:30 Alkaline Phosphatase 98 U/L (45-117) 08/01/18 07:30 Total Protein 8.3 g/dl (6.4-8.2) H 08/01/18 07:30 Albumin 4.6 g/dl (3.4-5.0) 08/01/18 07:30 RPR Titer Nonreactive (NONREACTIVE) 08/01/18 07:30 lab noted Assessment: 08/02/18 10:27 withdrawal sx Plan: continue detox
[2018-08-02] MEDS: PRENATAL VITAMINS W/ FOLIC ACID TABLET (FP) PO SCH (10:34)
[2018-08-02] MEDS: ARIPiprazole 10 MG TABLET PO SCH (10:34)
[2018-08-02] MEDS: NAPROXEN 500 MG TABLET (FP) PO SCH ×2 (10:34→22:19)
[2018-08-02] MEDS: ESCITALOPRAM OXALATE 10 MG TABLET (FP) PO SCH (10:35)
[2018-08-02] MEDS: diazePAM 5 MG TABLET PO SCH ×2 (10:35→22:19)
[2018-08-02] MEDS: NICOTINE 14 MG/24 HOURS TOPICAL PATCH TD SCH (10:35)
[2018-08-02] MEDS: hydrOXYzine PAMOATE 50 MG CAPSULE (FP) PO PRN (13:16)
[2018-08-02] MEDS ORDERED: cloNIDine HCL 0.1 MG TABLET PO ONE (15:38)
[2018-08-02] MEDS: ZOLPIDEM TARTRATE 10 MG TABLET (PARK CARE ONLY) PO PRN (22:19)
[2018-08-02] MEDS: THIAMINE HCL 100 MG TABLET (FP) PO SCH (22:19)
[2018-08-03] MEDS ORDERED: METHADONE HCL 40 MG DISPERSABLE TABLET ONE (03:09)
[2018-08-03] MEDS ORDERED: METHADONE HCL 10 MG TABLET ONE (03:10)
[2018-08-03] MEDS: METHADONE 80 MG, METHADONE 10 MG PO SCH (05:51)
[2018-08-03] MEDS: CYCLOBENZAPRINE HCL 5 MG TABLET PO SCH ×3 (05:51→22:58)
[2018-08-03] MEDS: diazePAM 5 MG TABLET PO PRN ×3 (06:28→16:58)
[2018-08-03] MEDS ORDERED: cloNIDine HCL 0.1 MG TABLET PO ONE (09:51)
[2018-08-03] MEDS: hydrOXYzine PAMOATE 50 MG CAPSULE (FP) PO PRN (10:09)
[2018-08-03] MEDS: NAPROXEN 500 MG TABLET (FP) PO SCH ×2 (10:09→22:58)
[2018-08-03] MEDS: PRENATAL VITAMINS W/ FOLIC ACID TABLET (FP) PO SCH (10:09)
[2018-08-03] MEDS: NICOTINE 14 MG/24 HOURS TOPICAL PATCH TD SCH (10:09)
[2018-08-03] MEDS: diazePAM 5 MG TABLET PO SCH ×2 (10:09→22:58)
[2018-08-03] MEDS: ESCITALOPRAM OXALATE 10 MG TABLET (FP) PO SCH (10:09)
[2018-08-03] MEDS: ARIPiprazole 10 MG TABLET PO SCH (10:09)
--- NOTE | 2018-08-03 10:11 | PN ---
[facility] Progress Note Note: PATIENT CONTINUES WITH DETOX REGIMEN. C/O ANXIETY, MILD SHAKES AND DIARRHEA. Vital Signs Temperature 97.3 F L 08/03/18 09:57 Pulse Rate 79 08/03/18 09:57 Respiratory Rate 18 08/03/18 09:57 Blood Pressure 126/73 08/03/18 09:57 O2 Sat by Pulse Oximetry (%) Laboratory Tests 08/01/18 08/01/18 08/01/18 07:30 07:30 07:30 WBC 12.4 H RBC 5.26 Hgb 16.1 Hct 50.2 H D MCV 95.4 MCH 30.6 MCHC 32.1 RDW 13.9 Plt Count 230 D MPV 8.5 Sodium 136 Potassium 4.2 Chloride 100 Carbon Dioxide 29 Anion Gap 7 L BUN 16 Creatinine 0.8 Creat Clearance w eGFR > 60 Random Glucose 77 Calcium 9.9 Total Bilirubin 0.8 AST 25 ALT 33 Alkaline Phosphatase 98 Total Protein 8.3 H Albumin 4.6 Urine Color Urine Appearance Urine pH Ur Specific [place] Urine Protein Urine Glucose (UA) Urine Ketones Urine Blood Urine Nitrite Urine Bilirubin Urine Urobilinogen Ur Leukocyte Esterase RPR Titer Nonreactive 08/01/18 08:30 WBC RBC Hgb Hct MCV MCH MCHC RDW Plt Count MPV Sodium Potassium Chloride Carbon Dioxide Anion Gap BUN Creatinine Creat Clearance w eGFR Random Glucose Calcium Total Bilirubin AST ALT Alkaline Phosphatase Total Protein Albumin Urine Color Cancelled Urine Appearance Cancelled Urine pH Cancelled Ur Specific [place] Cancelled Urine Protein Cancelled Urine Glucose (UA) Cancelled Urine Ketones Cancelled Urine Blood Cancelled Urine Nitrite Cancelled Urine Bilirubin Cancelled Urine Urobilinogen Cancelled Ur Leukocyte Esterase Cancelled RPR Titer SKIN WARM AND DRY ALERT AND ORIENTED X 3 AMB AD MAYRA CAR S1S2 RESP CTA BL +ANXIETY (WORRIED ABOUT MOTHER SHE IS HOSPITALIZED) EXT MILD TREMORS FELT A/P: WITHDRAWAL SYNDROME CONTINUE DETOX ORAL FLUIDS ENCOURAGED CLONIDINE 0.1MG X ONE DOSE CONTINUE TO MONITOR CLINICALLY
[2018-08-03] MEDS: ZOLPIDEM TARTRATE 10 MG TABLET (PARK CARE ONLY) PO PRN (22:58)
[2018-08-03] MEDS: THIAMINE HCL 100 MG TABLET (FP) PO SCH (22:58)
[2018-08-04] MEDS ORDERED: METHADONE HCL 10 MG TABLET ONE (05:18)
[2018-08-04] MEDS ORDERED: METHADONE HCL 40 MG DISPERSABLE TABLET ONE (05:18)
[2018-08-04] MEDS: METHADONE 80 MG, METHADONE 10 MG PO SCH (05:59)
[2018-08-04] MEDS: CYCLOBENZAPRINE HCL 5 MG TABLET PO SCH (06:00)
[2018-08-04] MEDS ORDERED: diazePAM 5 MG TABLET PO ONE (06:43)
[2018-08-04 07:05] VITALS: BP 104/71; PULSE 98; TEMP 97.7
--- NOTE | 2018-08-04 08:59 | DS ---
[facility] Detox Discharge Summary Admission Date: 07/31/18 Discharge Date: 08/04/18 - History Present History: Alcohol Dependence, Cannabis Dependence, Cocaine Dependence, Sedative Dependence Additional Comments: Patient medically stable. Patient to follow up with myrtle wong referrls and primary care provider. Follow up with counseling Services [facility] Neli joshi @ 10am. Pertinent Past History: Vital Signs Temperature 97.7 F 08/04/18 07:04 Pulse Rate 98 H 08/04/18 07:04 Respiratory Rate 20 08/04/18 07:04 Blood Pressure 104/71 08/04/18 07:04 O2 Sat by Pulse Oximetry (%) Laboratory Last Values WBC 12.4 K/mm3 (4.0-10.0) H 08/01/18 07:30 RBC 5.26 M/mm3 (4.00-5.60) 08/01/18 07:30 Hgb 16.1 GM/dL (11.7-16.9) 08/01/18 07:30 Hct 50.2 % (35.4-49) H D 08/01/18 07:30 MCV 95.4 fl (80-96) 08/01/18 07:30 MCH 30.6 pg (25.7-33.7) 08/01/18 07:30 MCHC 32.1 g/dl (32.0-35.9) 08/01/18 07:30 RDW 13.9 % (11.9-15.9) 08/01/18 07:30 Plt Count 230 K/MM3 (134-434) D 08/01/18 07:30 MPV 8.5 fl (7.5-11.1) 08/01/18 07:30 Sodium 136 mmol/L (136-145) 08/01/18 07:30 Potassium 4.2 mmol/L (3.5-5.1) 08/01/18 07:30 Chloride 100 mmol/L (98-107) 08/01/18 07:30 Carbon Dioxide 29 mmol/L (21-32) 08/01/18 07:30 Anion Gap 7 MMOL/L (8-16) L 08/01/18 07:30 BUN 16 mg/dL (7-18) 08/01/18 07:30 Creatinine 0.8 mg/dL (0.55-1.3) 08/01/18 07:30 Creat Clearance w eGFR > 60 (>60) 08/01/18 07:30 Random Glucose 77 mg/dL (74-106) 08/01/18 07:30 Calcium 9.9 mg/dL (8.5-10.1) 08/01/18 07:30 Total Bilirubin 0.8 mg/dL (0.2-1) 08/01/18 07:30 AST 25 U/L (15-37) 08/01/18 07:30 ALT 33 U/L (13-61) 08/01/18 07:30 Alkaline Phosphatase 98 U/L (45-117) 08/01/18 07:30 Total Protein 8.3 g/dl (6.4-8.2) H 08/01/18 07:30 Albumin 4.6 g/dl (3.4-5.0) 08/01/18 07:30 Urine Color Cancelled 08/01/18 08:30 Urine Appearance Cancelled 08/01/18 08:30 Urine pH Cancelled 08/01/18 08:30 Ur Specific [place] Cancelled 08/01/18 08:30 Urine Protein Cancelled 08/01/18 08:30 Urine Glucose (UA) Cancelled 08/01/18 08:30 Urine Ketones Cancelled 08/01/18 08:30 Urine Blood Cancelled 08/01/18 08:30 Urine Nitrite Cancelled 08/01/18 08:30 Urine Bilirubin Cancelled 08/01/18 08:30 Urine Urobilinogen Cancelled 08/01/18 08:30 Ur Leukocyte Esterase Cancelled 08/01/18 08:30 RPR Titer Nonreactive (NONREACTIVE) 08/01/18 07:30 - Physical Exam Results Vital Signs: Vital Signs Temperature 97.7 F 08/04/18 07:04 Pulse Rate 98 H 08/04/18 07:04 Respiratory Rate 20 08/04/18 07:04 Blood Pressure 104/71 08/04/18 07:04 O2 Sat by Pulse Oximetry (%) - Treatment Hospital Course: Detox Protocol Followed, Detoxed Safely, Responded well, Discharged Condition Good Patient has Accepted a Rehab Referral to: YAHAIRA joshi 08/06/18 @ 10am. - Medication Discharge Medications: Ambulatory Orders Aripiprazole [Abilify -] 10 mg PO DAILY #30 tablet 06/01/17 Zolpidem Tartrate [Ambien] 10 mg PO HS 05/30/18 Aripiprazole [Abilify -] 10 mg PO DAILY #30 tablet 08/01/18 Escitalopram Oxalate [Lexapro -] 10 mg PO DAILY #30 tablet 08/01/18 Albuterol Sulfate Inhaler - [Ventolin HFA Inhaler -] 2 inh PO Q6H PRN #1 inhaler 08/03/18 - Diagnosis (1) Sedative hypnotic or anxiolytic dependence Status: Acute (2) Alcohol dependence with uncomplicated withdrawal Status: Acute (3) Cannabis dependence, uncomplicated Status: Acute (4) Cocaine dependence Status: Acute Qualifiers: Substance use status: uncomplicated Qualified Code(s): F14.20 - Cocaine dependence, uncomplicated (5) Chronic pain due to injury Status: Chronic (6) Opioid dependence on agonist therapy Status: Chronic - AMA Did Patient Leave Against Medical Advice: No
[2018-08-04] MEDS ORDERED: diazePAM 5 MG TABLET PO SCH (10:00)
== END 2018-08-04 07:52 | disposition home or self-care (01) | DRG 773 ==
LOC: YASAS 13:17 → Y6N 17:37
PROC: HZ2ZZZZ Detoxification Services for Substance Abuse Treatment (ICD-10-PCS; principal; 2018-07-31)
DX: F10.230 Alcohol dependence with withdrawal, uncomplicated (principal); F13.230 Sedative, hypnotic or anxiolytic dependence with withdrawal, uncomplicated; F14.20 Cocaine dependence, uncomplicated; F12.20 Cannabis dependence, uncomplicated; F11.20 Opioid dependence, uncomplicated; F33.9 Major depressive disorder, recurrent, unspecified; F19.24 Other psychoactive substance dependence with psychoactive substance-induced mood disorder; F19.282 Other psychoactive substance dependence with psychoactive substance-induced sleep disorder; B18.2 Chronic viral hepatitis C; J42 Unspecified chronic bronchitis; J45.909 Unspecified asthma, uncomplicated; G89.21 Chronic pain due to trauma; M54.5 Low back pain; G89.29 Other chronic pain; D64.9 Anemia, unspecified; R63.4 Abnormal weight loss; Z68.21 Body mass index [BMI] 21.0-21.9, adult
CPT/HCPCS: 36415; 80053; 85027; 86593; 93005; 93010; J0735

== ENCOUNTER 2018-10-09 11:05 | Inpatient (IN) | payer OTHER ==
[2018-10-09 11:23] VITALS: BMI 21.4
--- NOTE | 2018-10-09 14:12 | HP ---
"CIWA Score Nausea/Vomitin Muscle Tremors: 7-Severe,w/o Arm Extended Anxiety: 4-Mod. Anxious/Guarded Agitation: 1-Slight > Activity Paroxysmal Sweats: 2 Orientation: 0-Oriented Tacttile Disturbances: 0-None Auditory Disturbances: 1-Very Mild Visual Disturbances: 1-Very Mild Sensitivity Headache: 2-Mild CIWA-Ar Total Score: 20 - Admission Criteria OASAS Guidelines: Admission for Medically Managed Detox: Requires at least one of the followin. CIWA greater than 12 2. Seizures within the past 24 hours 3. Delirium tremens within the past 24 hours 4. Hallucinations within the past 24 hours 5. Acute intervention needed for co occurring medical disorder 6. Acute intervention needed for co occurring psychiatric disorder 7. Severe withdrawal that cannot be handled at a lower level of care (continued vomiting, continued diarrhea, abnormal vital signs) requiring intravenous medication and/or fluids 8. Admission ROS [facility] Allergies/Adverse Reactions: Allergies Allergy/AdvReac Type Severity Reaction Status Date / Time No Known Allergies Allergy Verified 10/09/18 12:13 History of Present Illness: patient here requesting detox from ETOH use , reports etoh use 4 beers/day x 22 oz each x 2 years , reports tremors if not drinking , denies seizures , blackouts , denies recent falls or injuries while intoxicated latest use yesterday morning , current symptoms as above, prior detox at this facility 2 months ago. cocaine use : 1 bag/day IVDU in [facility] , needles from the needle exchange , denies sharing, denies re-using MMTP : [facility] , on 90 mg daily , x 6 years benzo : 2 mg clonazepam daily ( illicit use ) , xanax illicit use PMHX : asthma since ( hospitalized, not intubated ) , nephrolithiasis PSHx : denies PSych : depression, anxiety meds : abilify , lexapro tobacco : 1 ppd i-stop : report was requested by: Norah Ivy | Reference #: [id number] Others' Prescriptions Patient Name: Ruben Murphy Date: 1970 Address: [address] [place] [address] Sex: Male Rx Written Rx Dispensed Drug Quantity Days Supply Prescriber Name 05/24/2018 05/25/2018 clonazepam 1 mg tablet 60 30 Fidel Jacobsen NP 05/24/2018 05/25/2018 zolpidem tartrate 10 mg tablet 30 30 Ann-Marie Fidel, [employer]ER OPERATOR 04/23/2018 04/24/2018 zolpidem tartrate 10 mg tablet 30 30 Ann-Marie, Fidel, MET[employer] SHE[employer] ROLLER OPERATOR 04/23/2018 04/23/2018 clonazepam 1 mg tablet 60 30 Ann-Marie, Fidel, [employer] SHE[employer] ROLLER OPERATOR 03/26/2018 03/26/2018 clonazepam 1 mg tablet 60 30 Ann-Marie Fidel, METAL SHEET ROLLER OPERATOR 03/26/2018 03/26/2018 zolpidem tartrate 10 mg tablet 30 30 Ann-Marie, Fidel, MET[employer] SHE[employer] ROLLER OPERATOR 02/22/2018 02/22/2018 clonazepam 1 mg tablet 60 30 Ann-Marie, Fidel, MET[employer] SHE[employer] ROLLER OPERATOR 02/22/2018 02/22/2018 zolpidem tartrate 5 mg tablet 30 30 Ann-Marie , Fidel, METAL SHEET ROLLER OPERATOR 01/25/2018 01/25/2018 zolpidem tartrate 5 mg tablet 30 30 Ann-Marie , Fidel, MET[employer] SHE[employer] ROLLER OPERATOR 01/25/2018 01/25/2018 clonazepam 1 mg tablet 60 30 Ann-Marie, Fidel, MET[employer] SHE[employer] ROLLER OPERATOR 12/25/2017 12/25/2017 clonazepam 1 mg tablet 60 30 Ann-Marie, Fidel, MET[employer] SHE[employer] ROLLER OPERATOR 12/25/2017 12/25/2017 zolpidem tartrate 5 mg tablet 30 30 Ann-Marie , Fidel, MET[employer] SHE[employer] ROLLER OPERATOR 11/27/2017 11/27/2017 clonazepam 1 mg tablet 60 30 Ann-Marie, Fidel, METAL SHEET ROLLER OPERATOR 11/27/2017 11/27/2017 zolpidem tartrate 5 mg tablet 30 30 Ann-Marie Fidel, METAL SHEET ROLLER OPERATOR 10/30/2017 10/30/2017 clonazepam 1 mg tablet 60 30 Ann-Marie Fidel, METAL SHEET ROLLER OPERATOR 10/30/2017 10/30/2017 zolpidem tartrate 5 mg tablet 30 30 Ann-Marie , Fidel, METAL SHEET ROLLER OPERATOR Exam Limitations: Clinical Condition - Ebola screening Have you traveled outside of the country in the last 21 days: No Have you had contact with anyone from an Ebola affected area: No Have you been sick,other than usual withdrawal symptoms: No - Review of Systems Constitutional: See HPI EENT: reports: Other (reading glasses , upper dentures) Respiratory: reports: See HPI Cardiac: reports: No Symptoms Reported GI: reports: Nausea : reports: No Symptoms Reported Musculoskeletal: reports: No Symptoms Reported Integumentary: reports: Other (track gan) Neuro: reports: Headache Endocrine: reports: No Symptoms Reported Psychiatric: reports: Orientated x3, Anxious Patient History - Patient Medical History Hx Anemia: Yes (Uncertain about Type.) Hx Asthma: Yes Hx Chronic Obstructive Pulmonary Disease (COPD): Yes Hx Cancer: No Hx Cardiac Disorders: No Hx Congestive Heart Failure: No Hx Hypertension: No Hx Hypercholesterolemia: No Hx Pacemaker: No HX Cerebrovascular Accident: No Hx Seizures: No Hx Dementia: No Hx Diabetes: No Hx Gastrointestinal Disorders: No Hx Liver Disease: Yes (Hep C, cleared virus without treatment.) Hx Genitourinary Disorders: No Hx Sexually Transmitted Disorders: No Hx Renal Disease (ESRD): No Hx Thyroid Disease: No Hx Human Immunodeficiency Virus (HIV): No (12/09 negative) Hx Hepatitis C: Yes (undetecable viral load (without treatment).) Hx Depression: Yes Hx Suicide Attempt: No Hx Bipolar Disorder: No Hx Schizophrenia: No - Patient Surgical History Past Surgical History: Yes Hx Neurologic Surgery: No Hx Cataract Extraction: No Hx Cardiac Surgery: No Hx Lung Surgery: No Hx Breast Surgery: No Hx Breast Biopsy: No Hx Abdominal Surgery: No Hx Appendectomy: No Hx Cholecystectomy: No Hx Genitourinary Surgery: No Hx Section: No Hx Orthopedic Surgery: No Other Surgical History: LITHOTRIPSY 2006 Anesthesia Reaction: No - PPD History Previous Implant?: Yes Documented Results: Negative w/proof Implanted On Prior [facility] Admission?: Yes Date: 05/31/18 Results: 0 MM - Smoking Cessation Smoking history: Current every day smoker Have you smoked in the past 12 months: Yes Aproximately how many cigarettes per day: 10 Cigars Per Day: 0 Hx Chewing Tobacco Use: No Initiated information on smoking cessation: No - Substances Abused Alcohol Route: Oral Frequency: Daily Amount used: 4 22 oz beers/ 1 pint vodka Age of first use: 10 Date of Last Use: 10/08/18 Cocaine Route: Injection Frequency: Daily Amount used: 1 bag Age of first use: 16 Date of Last Use: 10/08/18 klonopin Route: Oral Frequency: Daily Amount used: 2-4mg Age of first use: 18 Date of Last Use: 10/04/18 K2 Route: Smoking Frequency: Daily Amount used: 30 JOINTS Age of first use: 45 Date of Last Use: 10/09/18 Family Disease History - Family Disease History Family Disease History: Heart Disease: Grandparent (CVA; Tongue Ca.), Father ( HTN, MT, , MVA), Mother (HTN, AF), CA: Grandparent, Other: Grandparent, Father Admission Physical Exam BHS - Vital Signs Vital Signs: Vital Signs - 24 hr 10/09/18 11:21 Temperature 98.1 F Pulse Rate 87 Respiratory 18 Rate Blood Pressure 130/66 - Physical General Appearance: Yes: Disheveled, Moderate Distress, Thin, Tremorous, Sweating, Anxious HEENTM: Yes: EOMI, Hearing grossly Normal, Normocephalic, Normal Voice, Other ( upper dentures) Respiratory: Yes: Chest Non-Tender, Decreased Breath Sounds, Wheezing Neck: Yes: No masses,lesions,Nodules, Trachea in good position Breast: Yes: Breast Exam Deferred Cardiology: Yes: Regular Rhythm, Regular Rate, S1, S2, Tachycardia Abdominal: Yes: Normal Bowel Sounds, Soft Genitourinary: Yes: Within Normal Limits Back: Yes: Normal Inspection Musculoskeletal: Yes: full range of Motion, Gait Steady Extremities: Yes: Normal Capillary Refill, Normal Range of Motion, Tremors Neurological: Yes: Fully Oriented, Motor Strength 5/5 Integumentary: Yes: Normal Color, Dry, Track Gan - Diagnostic (1) Alcohol dependence with uncomplicated withdrawal Current Visit: No Status: Acute (2) Cocaine dependence Current Visit: No Status: Chronic Qualifiers: Substance use status: uncomplicated Qualified Code(s): F14.20 - Cocaine dependence, uncomplicated (3) Nicotine dependence Current Visit: No Status: Chronic Qualifiers: Nicotine product type: cigarettes Substance use status: in withdrawal Qualified Code(s): F17.213 - Nicotine dependence, cigarettes, with withdrawal (4) Asthma Current Visit: No Status: Chronic Qualifiers: Asthma severity: unspecified severity Asthma persistence: unspecified Asthma complication type: uncomplicated Qualified Code(s): J45.909 - Unspecified asthma, uncomplicated (5) Opioid dependence on agonist therapy Current Visit: No Status: Chronic BHS Breath Alcohol Content Breath Alcohol Content: 0 Urine Drug Screen - Results Drug Screen Negative: No Urine Drug Screen Results: LEXI-Cocaine, MTD-Methadone"
[2018-10-09] MEDS ORDERED: MAG HYDROX/AL HYDROX/SIMETH 30 ML UNIT-DOSE CUP PO PRN (14:16)
[2018-10-09] MEDS ORDERED: guaiFENesin/D-METHORPHAN HB 10 ML UNIT-DOSE CUPS PO PRN (14:16)
[2018-10-09] MEDS ORDERED: P-EPHED 60MG/TRIPROLIDI 2.5MG TABLET PO PRN (14:16)
[2018-10-09] MEDS ORDERED: MAGNESIUM CITRATE 300 ML BOTTLE PO PRN (14:16)
[2018-10-09] MEDS ORDERED: MENTHOL/PHENOL 1 EACH UD MM PRN (14:16)
[2018-10-09] MEDS ORDERED: chlordiazePOXIDE HCL 25 MG CAPSULE PO PRN (14:16)
[2018-10-09] MEDS ORDERED: ACETAMINOPHEN 325 MG TABLET (FP) PO PRN (14:16)
[2018-10-09] MEDS ORDERED: IBUPROFEN 400 MG TABLET (FP) PO PRN (14:16)
[2018-10-09] MEDS ORDERED: MAGNESIUM HYDROX 2400MG/30ML ORAL SUSPENSION 30 ML CUP PO PRN (14:16)
[2018-10-09] MEDS ORDERED: ALBUTEROL SO4 8 GM HFA INHALER IH PRN (14:17)
[2018-10-09] MEDS ORDERED: ALBUTEROL SO4 0.083% IH SOL 2.5 MG/3 ML VIAL.NEB. NEB PRN (14:18)
[2018-10-09] MEDS ORDERED: diazePAM 5 MG TABLET PO PRN (14:21)
[2018-10-09] MEDS ORDERED: chlordiazePOXIDE HCL 25 MG CAPSULE PO SCH (17:00)
[2018-10-09] MEDS ORDERED: diazePAM 5 MG TABLET PO ONE (17:00)
[2018-10-09] MEDS: THIAMINE HCL 100 MG TABLET (FP) PO SCH (22:11)
[2018-10-09] MEDS: MELATONIN 5 MG TABLETS PO PRN (22:11)
[2018-10-09] MEDS: diazePAM 5 MG TABLET PO SCH (22:11)
[2018-10-10] MEDS ORDERED: METHADONE HCL 40 MG DISPERSABLE TABLET ONE (04:21)
[2018-10-10] MEDS ORDERED: METHADONE HCL 10 MG TABLET ONE (04:21)
[2018-10-10] MEDS: METHADONE 80 MG, METHADONE 10 MG PO SCH (05:25)
[2018-10-10] MEDS: diazePAM 5 MG TABLET PO SCH ×3 (05:25→22:18)
[2018-10-10] MEDS ORDERED: METHADONE HCL 10 MG TABLET PO SCH (06:00)
[2018-10-10] MEDS: diazePAM 5 MG TABLET PO PRN ×2 (09:02→17:11)
[2018-10-10] MEDS: PRENATAL VITAMINS W/ FOLIC ACID TABLET (FP) PO SCH (09:02)
[2018-10-10 10:00] LABS: HEMOGLOBIN 14.4 GM/dL (11.7-16.9); MCH 31.5 pg (25.7-33.7); MCHC 33.4 g/dl (32.0-35.9); MEAN CELL VOLUME 94.2 fl (80-96); MEAN PLT VOLUME 9.2 fl (7.5-11.1); PLATELET COUNT 183 K/MM3 (134-434); RBC 4.57 M/mm3 (4.00-5.60); RDW 13.5 % (11.9-15.9); WHITE BLOOD COUNT 6.1 K/mm3 (4.0-10.0)
[2018-10-10 10:33] LABS: ALBUMIN 4.1 g/dl (3.4-5.0); ALK PHOS 80 U/L (45-117); ANION GAP 8 MMOL/L (8-16); BILIRUBIN,TOTAL 0.3 mg/dL (0.2-1); BLOOD UREA NITROGEN 15 mg/dL (7-18); CALCIUM 8.7 mg/dL (8.5-10.1); CHLORIDE 105 mmol/L (98-107); CO2 27 mmol/L (21-32); CREATININE 0.9 mg/dL (0.55-1.3); GLUCOSE,RANDOM 121 mg/dL (74-106); POTASSIUM 3.7 mmol/L (3.5-5.1); SGOT/AST 19 U/L (15-37); SGPT/ALT 25 U/L (13-61); SODIUM 140 mmol/L (136-145); TOT PROT 7.1 g/dl (6.4-8.2)
[2018-10-10] MEDS ORDERED: FLU VACCINE QUAD 60 MCG/0.5 ML (MDV 18-19) IM ONE (12:00)
--- NOTE | 2018-10-10 13:07 | PN ---
BHS CIWA - CIWA Score Nausea/Vomitin Muscle Tremors: 1-None Visible, but [place] Anxiety: 1-Mildly Anxious Agitation: 1-Slight > Activity Paroxysmal Sweats: 1-Minimal Palms Moist Orientation: 0-Oriented Tacttile Disturbances: 0-None Auditory Disturbances: 0-None Visual Disturbances: 0-None Headache: 0-None Present CIWA-Ar Total Score: 6 BHS Progress Note (SOAP) Subjective: Pt states he still feels like he is in withdrawals- on alcohol detox protocol requesting ensure, wants to see O: Vital Signs - 24 hr 10/09/18 10/09/18 10/09/18 15:56 17:24 21:18 Temperature 97.2 F L 98.6 F 97.6 F Pulse Rate 70 76 64 Respiratory 20 18 18 Rate Blood Pressure 129/72 115/81 132/80 10/10/18 10/10/18 10/10/18 00:30 03:30 06:07 Temperature 97.2 F L Pulse Rate 97 H Respiratory 18 18 18 Rate Blood Pressure 150/91 10/10/18 10:00 Temperature 96.5 F L Pulse Rate 70 Respiratory 18 Rate Blood Pressure 120/71 Laboratory Tests 10/10/18 10/10/18 10/10/18 06:00 06:00 06:00 WBC 6.1 RBC 4.57 Hgb 14.4 Hct 43.0 MCV 94.2 MCH 31.5 MCHC 33.4 RDW 13.5 Plt Count 183 D MPV 9.2 Sodium 140 Potassium 3.7 Chloride 105 Carbon Dioxide 27 Anion Gap 8 BUN 15 Creatinine 0.9 Creat Clearance w eGFR > 60 Random Glucose 121 H Calcium 8.7 Total Bilirubin 0.3 AST 19 ALT 25 Alkaline Phosphatase 80 Total Protein 7.1 Albumin 4.1 RPR Titer Nonreactive a/p: Alcohol detox protocol: will add vistaril/clonidine ensure ordered consult pending clonidien/vistatil ordered prn
[2018-10-10] MEDS: cloNIDine HCL 0.1 MG TABLET PO PRN ×2 (13:56→18:01)
[2018-10-10] MEDS ORDERED: chlordiazePOXIDE HCL 25 MG CAPSULE PO SCH (17:00)
[2018-10-10] MEDS: NICOTINE POLACRILEX 2 MG GUM BUC PRN (17:27)
--- NOTE | 2018-10-10 17:41 | CONSULT ---
[facility] Psychiatric Consult - Data Date of interview: 10/10/18 Admission source: [facility] Identifying data: Patient refuses psychiatric evaluation. " I am tired. I need my rest ". Nursing staff is made aware.
[2018-10-10] MEDS: hydrOXYzine PAMOATE 50 MG CAPSULE (FP) PO PRN (19:54)
[2018-10-10] MEDS: THIAMINE HCL 100 MG TABLET (FP) PO SCH (22:18)
[2018-10-10] MEDS: MELATONIN 5 MG TABLETS PO PRN (22:18)
[2018-10-11] MEDS ORDERED: METHADONE HCL 10 MG TABLET ONE (04:31)
[2018-10-11] MEDS ORDERED: METHADONE HCL 40 MG DISPERSABLE TABLET ONE (04:32)
[2018-10-11] MEDS: METHADONE 80 MG, METHADONE 10 MG PO SCH (05:59)
[2018-10-11] MEDS: diazePAM 5 MG TABLET PO PRN ×3 (05:59→16:56)
[2018-10-11] MEDS: diazePAM 5 MG TABLET PO SCH ×2 (10:11→22:07)
[2018-10-11] MEDS: PRENATAL VITAMINS W/ FOLIC ACID TABLET (FP) PO SCH (10:11)
[2018-10-11] MEDS: cloNIDine HCL 0.1 MG TABLET PO PRN (10:12)
[2018-10-11] MEDS: NICOTINE POLACRILEX 2 MG GUM BUC PRN (10:13)
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
[2018-10-11] MEDS: ARIPiprazole 10 MG TABLET PO SCH (11:26)
[2018-10-11] MEDS: ESCITALOPRAM OXALATE 10 MG TABLET (FP) PO SCH (11:27)
--- NOTE | 2018-10-11 12:35 | PN ---
S CIWA - CIWA Score Nausea/Vomitin Muscle Tremors: None Anxiety: 4-Mod. Anxious/Guarded Agitation: 4-Moderately Restless Paroxysmal Sweats: 2 Orientation: 0-Oriented Tacttile Disturbances: 0-None Auditory Disturbances: 0-None Visual Disturbances: 0-None Headache: 0-None Present CIWA-Ar Total Score: 12 BHS Progress Note (SOAP) Subjective: PATIENT ANXIOUS AND VERY RESTLESS. C/O DIARRHEA AND SWEATING. Objective: 10/11/18 12:33 Vital Signs Temperature 97.0 F L 10/11/18 09:24 Pulse Rate 77 10/11/18 09:24 Respiratory Rate 18 10/11/18 09:24 Blood Pressure 98/65 10/11/18 09:24 O2 Sat by Pulse Oximetry (%) Laboratory Tests 10/10/18 10/10/18 10/10/18 06:00 06:00 06:00 WBC 6.1 RBC 4.57 Hgb 14.4 Hct 43.0 MCV 94.2 MCH 31.5 MCHC 33.4 RDW 13.5 Plt Count 183 D MPV 9.2 Sodium 140 Potassium 3.7 Chloride 105 Carbon Dioxide 27 Anion Gap 8 BUN 15 Creatinine 0.9 Creat Clearance w eGFR > 60 Random Glucose 121 H Calcium 8.7 Total Bilirubin 0.3 AST 19 ALT 25 Alkaline Phosphatase 80 Total Protein 7.1 Albumin 4.1 RPR Titer Nonreactive PE: ALERT AND ORIENTED X 3 SKIN + FACIAL FLUSHING, MOIST EXT FULL ROM PACING IN HALLWAY ANXIOUS Assessment: 10/11/18 12:34 WITHDRAWAL SX ANXIETY Plan: CONTINUE DETOX PSYCH CONSULT MONITOR CLINICALLY
[2018-10-11] MEDS: NICOTINE 21 MG/24 HOURS TOPICAL PATCH TD SCH (12:51)
[2018-10-11] MEDS: hydrOXYzine PAMOATE 50 MG CAPSULE (FP) PO PRN ×2 (14:33→19:41)
[2018-10-11] MEDS ORDERED: chlordiazePOXIDE 5 MG CAPSULE PO SCH (17:00)
[2018-10-11] MEDS ORDERED: SUVOREXANT 10 MG TABLET PO PRN (22:00)
[2018-10-11] MEDS: THIAMINE HCL 100 MG TABLET (FP) PO SCH (22:07)
[2018-10-12] MEDS ORDERED: METHADONE HCL 10 MG TABLET ONE (04:43)
[2018-10-12] MEDS ORDERED: METHADONE HCL 40 MG DISPERSABLE TABLET ONE (04:43)
[2018-10-12] MEDS: METHADONE 80 MG, METHADONE 10 MG PO SCH (05:34)
[2018-10-12] MEDS: diazePAM 5 MG TABLET PO PRN ×2 (05:37→13:14)
[2018-10-12] MEDS: ESCITALOPRAM OXALATE 10 MG TABLET (FP) PO SCH (10:06)
[2018-10-12] MEDS: ARIPiprazole 10 MG TABLET PO SCH (10:06)
[2018-10-12] MEDS: diazePAM 5 MG TABLET PO SCH ×2 (10:07→22:14)
[2018-10-12] MEDS: PRENATAL VITAMINS W/ FOLIC ACID TABLET (FP) PO SCH (10:07)
[2018-10-12] MEDS: NICOTINE 21 MG/24 HOURS TOPICAL PATCH TD SCH (10:10)
[2018-10-12] MEDS: cloNIDine HCL 0.1 MG TABLET PO PRN (10:11)
--- NOTE | 2018-10-12 12:49 | PN ---
S Progress Note Note: Pt states he is feeling fine today-states meds are adequate O: Vital Signs - 24 hr 10/11/18 10/11/18 10/11/18 13:36 17:47 21:26 Temperature 97.5 F L 98.1 F 97 F L Pulse Rate 92 H 80 81 Respiratory 20 18 18 Rate Blood Pressure 105/65 97/64 135/85 10/12/18 10/12/18 10/12/18 00:30 06:26 09:24 Temperature 96.4 F L 98.0 F Pulse Rate 86 102 H Respiratory 18 18 20 Rate Blood Pressure 155/88 109/75 Laboratory Tests 10/10/18 10/10/18 10/10/18 06:00 06:00 06:00 WBC 6.1 RBC 4.57 Hgb 14.4 Hct 43.0 MCV 94.2 MCH 31.5 MCHC 33.4 RDW 13.5 Plt Count 183 D MPV 9.2 Sodium 140 Potassium 3.7 Chloride 105 Carbon Dioxide 27 Anion Gap 8 BUN 15 Creatinine 0.9 Creat Clearance w eGFR > 60 Random Glucose 121 H Calcium 8.7 Total Bilirubin 0.3 AST 19 ALT 25 Alkaline Phosphatase 80 Total Protein 7.1 Albumin 4.1 RPR Titer Nonreactive a/p: continue detox protocol, pt on methadone d/c tomorrow- orders done
[2018-10-12] MEDS: hydrOXYzine PAMOATE 50 MG CAPSULE (FP) PO PRN (15:53)
[2018-10-12] MEDS ORDERED: chlordiazePOXIDE HCL 10 MG CAPSULE PO SCH (17:00)
[2018-10-12] MEDS: THIAMINE HCL 100 MG TABLET (FP) PO SCH (22:14)
[2018-10-12] MEDS: MELATONIN 5 MG TABLETS PO PRN (22:14)
[2018-10-13] MEDS ORDERED: METHADONE HCL 10 MG TABLET ONE (04:21)
[2018-10-13] MEDS ORDERED: METHADONE HCL 40 MG DISPERSABLE TABLET ONE (04:21)
[2018-10-13] MEDS: METHADONE 80 MG, METHADONE 10 MG PO SCH (05:28)
[2018-10-13] MEDS: cloNIDine HCL 0.1 MG TABLET PO PRN (05:29)
[2018-10-13 06:20] VITALS: BP 133/74; PULSE 94; TEMP 97.1
--- NOTE | 2018-10-13 09:27 | PN ---
S Progress Note (SOAP) Subjective: alert,no complaint Objective: 10/13/18 09:26 Vital Signs Temperature 97.1 F L 10/13/18 06:20 Pulse Rate 94 H 10/13/18 06:20 Respiratory Rate 18 10/13/18 06:20 Blood Pressure 133/74 10/13/18 06:20 O2 Sat by Pulse Oximetry (%) Assessment: 10/13/18 09:26 detox completed,no withdrawal symptom Plan: discharge today,follow up with after care program as arrangement
--- NOTE | 2018-10-13 09:31 | DS ---
[facility] Detox Discharge Summary Admission Date: 10/09/18 Discharge Date: 10/13/18 - History Present History: Alcohol Dependence, Cocaine Dependence, MMTP Additional Comments: follow up with after care program as arrangement Pertinent Past History: asthma - Physical Exam Results Vital Signs: Vital Signs Temperature 97.1 F L 10/13/18 06:20 Pulse Rate 94 H 10/13/18 06:20 Respiratory Rate 18 10/13/18 06:20 Blood Pressure 133/74 10/13/18 06:20 O2 Sat by Pulse Oximetry (%) Pertinent Admission Physical Exam Findings: Vital Signs Temperature 97.1 F L 10/13/18 06:20 Pulse Rate 94 H 10/13/18 06:20 Respiratory Rate 18 10/13/18 06:20 Blood Pressure 133/74 10/13/18 06:20 O2 Sat by Pulse Oximetry (%) Laboratory Last Values WBC 6.1 K/mm3 (4.0-10.0) 10/10/18 06:00 RBC 4.57 M/mm3 (4.00-5.60) 10/10/18 06:00 Hgb 14.4 GM/dL (11.7-16.9) 10/10/18 06:00 Hct 43.0 % (35.4-49) 10/10/18 06:00 MCV 94.2 fl (80-96) 10/10/18 06:00 MCH 31.5 pg (25.7-33.7) 10/10/18 06:00 MCHC 33.4 g/dl (32.0-35.9) 10/10/18 06:00 RDW 13.5 % (11.9-15.9) 10/10/18 06:00 Plt Count 183 K/MM3 (134-434) D 10/10/18 06:00 MPV 9.2 fl (7.5-11.1) 10/10/18 06:00 Sodium 140 mmol/L (136-145) 10/10/18 06:00 Potassium 3.7 mmol/L (3.5-5.1) 10/10/18 06:00 Chloride 105 mmol/L (98-107) 10/10/18 06:00 Carbon Dioxide 27 mmol/L (21-32) 10/10/18 06:00 Anion Gap 8 MMOL/L (8-16) 10/10/18 06:00 BUN 15 mg/dL (7-18) 10/10/18 06:00 Creatinine 0.9 mg/dL (0.55-1.3) 10/10/18 06:00 Creat Clearance w eGFR > 60 (>60) 10/10/18 06:00 Random Glucose 121 mg/dL (74-106) H 10/10/18 06:00 Calcium 8.7 mg/dL (8.5-10.1) 10/10/18 06:00 Total Bilirubin 0.3 mg/dL (0.2-1) 10/10/18 06:00 AST 19 U/L (15-37) 10/10/18 06:00 ALT 25 U/L (13-61) 10/10/18 06:00 Alkaline Phosphatase 80 U/L (45-117) 10/10/18 06:00 Total Protein 7.1 g/dl (6.4-8.2) 10/10/18 06:00 Albumin 4.1 g/dl (3.4-5.0) 10/10/18 06:00 RPR Titer Nonreactive (NONREACTIVE) 10/10/18 06:00 - Treatment Hospital Course: Detox Protocol Followed, Detoxed Safely, Responded well, Discharged Condition Good Patient has Accepted a Rehab Referral to: declined - Medication Discharge Medications: Ambulatory Orders Aripiprazole [Abilify -] 10 mg PO DAILY #30 tablet 06/01/17 Zolpidem Tartrate [Ambien] 10 mg PO HS 05/30/18 Escitalopram Oxalate [Lexapro -] 10 mg PO DAILY #30 tablet 08/01/18 Albuterol Sulfate Inhaler - [Ventolin HFA Inhaler -] 2 inh PO Q6H PRN #1 inhaler 08/03/18 - Diagnosis (1) Alcohol dependence with uncomplicated withdrawal Status: Acute (2) Cocaine dependence Status: Chronic Qualifiers: Substance use status: uncomplicated Qualified Code(s): F14.20 - Cocaine dependence, uncomplicated (3) Methadone maintenance therapy patient Status: Chronic (4) Nicotine dependence Status: Chronic Qualifiers: Nicotine product type: cigarettes Substance use status: in withdrawal Qualified Code(s): F17.213 - Nicotine dependence, cigarettes, with withdrawal - AMA Did Patient Leave Against Medical Advice: No
[2018-10-13] MEDS ORDERED: diazePAM 5 MG TABLET PO SCH (10:00)
== END 2018-10-13 07:45 | disposition home or self-care (01) | DRG 773 ==
LOC: YASAS 11:05 → Y3N 15:08
PROC: HZ2ZZZZ Detoxification Services for Substance Abuse Treatment (ICD-10-PCS; principal; 2018-10-08)
DX: F10.230 Alcohol dependence with withdrawal, uncomplicated (principal); F11.20 Opioid dependence, uncomplicated; F14.20 Cocaine dependence, uncomplicated; F17.213 Nicotine dependence, cigarettes, with withdrawal; F19.24 Other psychoactive substance dependence with psychoactive substance-induced mood disorder; F41.9 Anxiety disorder, unspecified; F33.9 Major depressive disorder, recurrent, unspecified; J45.909 Unspecified asthma, uncomplicated; R00.0 Tachycardia, unspecified
CPT/HCPCS: 36415; 80053; 85027; 86593; J0735

== ENCOUNTER 2018-12-11 12:21 | Inpatient (IN) | payer OTHER ==
[2018-12-11 13:31] VITALS: BMI 20.3
--- NOTE | 2018-12-11 14:30 | HP ---
CIWA Score Nausea/Vomitin-No Nausea/No Vomiting Muscle Tremors: 4-Moderate,w/Arms Extend Anxiety: 3 Agitation: 3 Paroxysmal Sweats: 3 Orientation: 0-Oriented Tacttile Disturbances: 0-None Auditory Disturbances: 0-None Visual Disturbances: 0-None Headache: 1-Very Mild CIWA-Ar Total Score: 14 - Admission Criteria OASAS Guidelines: Admission for Medically Managed Detox: Requires at least one of the followin. CIWA greater than 12 2. Seizures within the past 24 hours 3. Delirium tremens within the past 24 hours 4. Hallucinations within the past 24 hours 5. Acute intervention needed for co occurring medical disorder 6. Acute intervention needed for co occurring psychiatric disorder 7. Severe withdrawal that cannot be handled at a lower level of care (continued vomiting, continued diarrhea, abnormal vital signs) requiring intravenous medication and/or fluids 8. Admission ROS [facility] - HPI Chief Complaint: I need the help for my drinking and xanax use. Allergies/Adverse Reactions: Allergies Allergy/AdvReac Type Severity Reaction Status Date / Time No Known Allergies Allergy Verified 10/09/18 12:13 History of Present Illness: pt is a 48yrold male with a history of alcohol and xanax dependence seeking detox for treatment. pt is also on a MMTP program last medicated today with 90mg ; pending verification. Exam Limitations: No Limitations - Ebola screening Have you traveled outside of the country in the last 21 days: No Have you had contact with anyone from an Ebola affected area: No Have you been sick,other than usual withdrawal symptoms: No Do you have a fever: No - Review of Systems Constitutional: Chills, Diaphoresis, Loss of Appetite, Night Sweats, Changes in sleep EENT: reports: Tearing, Nose Congestion Respiratory: reports: No Symptoms reported Cardiac: reports: No Symptoms Reported GI: reports: Diarrhea, Poor Appetite, Poor Fluid Intake : reports: No Symptoms Reported Musculoskeletal: reports: Back Pain, Muscle Pain Integumentary: reports: Flushing, Sweating Neuro: reports: Headache, Seizure, Tingling, Tremors Endocrine: reports: Excessive Sweating, Flushing, Intolerance to Cold, Intolerance to Heat Hematology: reports: No Symptoms Reported Psychiatric: reports: Judgement Intact, Mood/Affect Appropiate, Orientated x3, Agitated, Anxious Other Systems: Reviewed and Negative Patient History - Patient Medical History Hx Anemia: No Hx Asthma: Yes Hx Chronic Obstructive Pulmonary Disease (COPD): Yes Hx Cancer: No Hx Cardiac Disorders: No Hx Congestive Heart Failure: No Hx Hypertension: No Hx Hypercholesterolemia: No Hx Pacemaker: No HX Cerebrovascular Accident: No Hx Seizures: No Hx Dementia: No Hx Diabetes: No Hx Gastrointestinal Disorders: No Hx Liver Disease: Yes (Hep C, cleared virus without treatment.) Hx Genitourinary Disorders: No Hx Sexually Transmitted Disorders: No Hx Renal Disease (ESRD): No Hx Thyroid Disease: No Hx Human Immunodeficiency Virus (HIV): No (12/09 negative) Hx Hepatitis C: Yes (undetecable viral load (without treatment).) Hx Depression: Yes Hx Suicide Attempt: No (denies) Hx Bipolar Disorder: No Hx Schizophrenia: No Other Medical History: anxiety, panci attacks - Patient Surgical History Past Surgical History: Yes Hx Neurologic Surgery: No Hx Cataract Extraction: No Hx Cardiac Surgery: No Hx Lung Surgery: No Hx Breast Surgery: No Hx Breast Biopsy: No Hx Abdominal Surgery: No Hx Appendectomy: No Hx Cholecystectomy: No Hx Genitourinary Surgery: No Hx Section: No Hx Orthopedic Surgery: No Other Surgical History: LITHOTRIPSY 2006 Anesthesia Reaction: No - PPD History Previous Implant?: Yes Documented Results: Negative w/proof Date: 05/31/18 Results: 0 MM PPD to be Administered?: No - Reproductive History Patient is a Female of Child Bearing Age (11 -55 yrs old): No - Smoking Cessation Smoking history: Current every day smoker Have you smoked in the past 12 months: Yes Aproximately how many cigarettes per day: 10 Cigars Per Day: 0 Hx Chewing Tobacco Use: No Initiated information on smoking cessation: Yes 'Breaking Loose' booklet given: 12/11/18 - Substance & Tx. History Hx Alcohol Use: Yes Hx Substance Use: Yes Substance Use Type: Alcohol, Cocaine, Tranquilizers Hx Substance Use Treatment: Yes (last detox 2018 [facility]) - Substances Abused Alcohol Route: Oral Frequency: Daily Amount used: 3 pints vodka, 6 pk 22oz cans beer Age of first use: 9 Date of Last Use: 12/11/18 Cocaine Route: Injection Frequency: 3-6 times per week Amount used: 4 bags Age of first use: 16 Date of Last Use: 12/10/18 Marijuana/Hashish Route: Smoking Frequency: 3-6 times per week Amount used: 3 joints Age of first use: 8 Date of Last Use: 12/10/18 Family Disease History - Family Disease History Family Disease History: Heart Disease: Grandparent (CVA; Tongue Ca.), Father ( HTN, VA, , MVA), Mother (HTN, AF), CA: Grandparent, Other: Grandparent, Father Admission Physical Exam [facility] - Vital Signs Vital Signs: Vital Signs - 24 hr 12/11/18 13:29 Temperature 98.4 F Pulse Rate 77 Respiratory 17 Rate Blood Pressure 117/77 - Physical General Appearance: Yes: Appropriately Dressed, Thin, Tremorous, Irritable, Sweating, Anxious HEENTM: Yes: Hearing grossly Normal, Normal Voice, Hearing Decreased, Nasal Congestion, Rhinorrhea Respiratory: Yes: Normal Breath Sounds, No Respiratory Distress, Rhonchi, Wheezing Neck: Yes: No masses,lesions,Nodules Breast: Yes: Within Normal Limits Cardiology: Yes: Regular Rhythm, Regular Rate, S1, S2 Abdominal: Yes: Normal Bowel Sounds, Non Tender, Flat Genitourinary: Yes: Within Normal Limits Back: Yes: Normal Inspection Musculoskeletal: Yes: Back pain Extremities: Yes: Normal Capillary Refill, Normal Inspection, Non-Tender, Tremors Neurological: Yes: Fully Oriented, Alert, Normal Response Integumentary: Yes: Normal Color, Diaphoresis, Track Agn Lymphatic: Yes: Within Normal Limits - Diagnostic (1) Alcohol dependence with uncomplicated withdrawal Current Visit: Yes Status: Chronic (2) Anxiety disorder Current Visit: Yes Status: Chronic Qualifiers: Anxiety disorder type: unspecified anxiety disorder Qualified Code(s): F41.9 - Anxiety disorder, unspecified (3) Cannabis dependence, uncomplicated Current Visit: Yes Status: Chronic (4) Weight loss Current Visit: Yes Status: Acute (5) Asthma Current Visit: Yes Status: Chronic Qualifiers: Asthma severity: unspecified severity Asthma persistence: unspecified Asthma complication type: uncomplicated Qualified Code(s): J45.909 - Unspecified asthma, uncomplicated (6) COPD (chronic obstructive pulmonary disease) Current Visit: Yes Status: Chronic Qualifiers: COPD type: chronic bronchitis Chronic bronchitis type: unspecified Qualified Code(s): J42 - Unspecified chronic bronchitis (7) Chronic back pain Current Visit: Yes Status: Chronic Qualifiers: Back pain location: low back pain Back pain laterality: unspecified Sciatica presence: unspecified whether sciatica present Qualified Code(s): M54.5 - Low back pain; G89.29 - Other chronic pain (8) Cocaine dependence Current Visit: Yes Status: Chronic Qualifiers: Substance use status: uncomplicated Qualified Code(s): F14.20 - Cocaine dependence, uncomplicated (9) Methadone maintenance therapy patient Current Visit: Yes Status: Chronic Comment: 90 MG pending verification (10) Nicotine dependence Current Visit: Yes Status: Chronic Qualifiers: Nicotine product type: cigarettes Substance use status: uncomplicated Qualified Code(s): F17.210 - Nicotine dependence, cigarettes, uncomplicated Cleared for Admission S - Detox or Rehab [facility] Level of Care: Medically Managed Detox Regimen/Protocol: Valium [facility] Breath Alcohol Content Breath Alcohol Content: 0.008 Urine Drug Screen - Results Drug Screen Negative: No Urine Drug Screen Results: THC-Marijuana, LEXI-Cocaine, MTD-Methadone Inpatient Rehab Admission - Rehab Decision to Admit Inpatient rehab admission?: No
[2018-12-11] MEDS ORDERED: LOPERAMIDE HCL 2 MG CAPSULE PO PRN (14:43)
[2018-12-11] MEDS ORDERED: ACETAMINOPHEN 325 MG TABLET (FP) PO PRN (14:43)
[2018-12-11] MEDS ORDERED: hydrOXYzine PAMOATE 50 MG CAPSULE (FP) PO PRN (14:43)
[2018-12-11] MEDS ORDERED: MENTHOL/PHENOL 1 EACH UD MM PRN (14:43)
[2018-12-11] MEDS ORDERED: MAGNESIUM HYDROX 2400MG/30ML ORAL SUSPENSION 30 ML CUP PO PRN (14:43)
[2018-12-11] MEDS ORDERED: MAG HYDROX/AL HYDROX/SIMETH 30 ML UNIT-DOSE CUP PO PRN (14:43)
[2018-12-11] MEDS ORDERED: MAGNESIUM CITRATE 300 ML BOTTLE PO PRN (14:43)
[2018-12-11] MEDS ORDERED: P-EPHED 60MG/TRIPROLIDI 2.5MG TABLET PO PRN (14:43)
[2018-12-11] MEDS ORDERED: guaiFENesin/D-METHORPHAN HB 10 ML UNIT-DOSE CUPS PO PRN (14:43)
[2018-12-11] MEDS ORDERED: NICOTINE POLACRILEX 4 MG GUM BC PRN (14:43)
[2018-12-11] MEDS ORDERED: ALBUTEROL SO4 8 GM HFA INHALER IH PRN (14:45)
[2018-12-11] MEDS ORDERED: ALBUTEROL SO4 2.5/IPRATROPIUM 0.5 INH SOL 3 ML VIAL.NEB. NEB PRN (17:50)
[2018-12-11] MEDS ORDERED: ALBUTEROL SO4 2.5/IPRATROPIUM 0.5 INH SOL 3 ML VIAL.NEB. NEB ONE (19:00)
[2018-12-11] MEDS ORDERED: diazePAM 5 MG TABLET PO ONE (19:00)
[2018-12-11] MEDS ORDERED: MELATONIN 5 MG TABLETS PO PRN (22:00)
[2018-12-11] MEDS: NAPROXEN 500 MG TABLET (FP) PO SCH (22:22)
[2018-12-11] MEDS: TOLNAFTATE 1% CREAM 15 GM TUBE TP SCH (22:22)
[2018-12-11] MEDS: diazePAM 5 MG TABLET PO SCH (22:22)
[2018-12-11] MEDS: THIAMINE HCL 100 MG TABLET (FP) PO SCH (22:52)
[2018-12-12] MEDS: diazePAM 5 MG TABLET PO SCH ×3 (06:16→21:51)
--- NOTE | 2018-12-12 07:33 | CONSULT ---
[facility] Psychiatric Consult - Data Date of interview: 12/12/18 Admission source: [facility] Identifying data: This is a 48years old male, single, childless, licing alone, on SSI support, with psychiatric hospitalizationj history, with a history of alcohol, opioids, cocaine, cannabis, nicotine and xanax dependence is reporting withdrawal symptoms and seeking detox for treatment. Patient currently on a MMTP program last medicated today with 90mg, confirmed. Substance Abuse History: - Smoking Cessation. Smoking history: Current every day smoker. Have you smoked in the past 12 months: Yes. Aproximately how many cigarettes per day: 10. Cigars Per Day: 0. Hx Chewing Tobacco Use: No. Initiated information on smoking cessation: Yes. 'Breaking Loose' booklet given : 12/11/18. - Substance & Tx. History. Hx Alcohol Use: Yes. Hx Substance Use : Yes. Substance Use Type: Alcohol, Cocaine, Tranquilizers. Hx Substance Use Treatment: Yes (last detox 2018 [facility]). - Substances Abused. Alcohol. Route: Oral. Frequency: Daily. Amount used: 3 pints vodka, 6 pk 22oz cans beer. Age of first use: 9. Date of Last Use: 12/11/18. Cocaine. Route: Injection. Frequency: 3-6 times per week. Amount used: 4 bags. Age of first use: 16. Date of Last Use: 12/10/18. Marijuana/Hashish. Route: Smoking. Frequency: 3-6 times per week. Amount used: 3 joints. Age of first use: 8. Date of Last Use: 12/10/18 Medical History: Weight loss history, Asthma, LBP, COPD, MMTP 90mg/day Psychiatric History: Patient reports history of anxiety and depression with most recent psychiatric admission on 2018 at [facility], reports takijng prior harshil admission:Abilify 10mg poqd. Lexapro 10mg poqd. Buspiron 15mg po bid. Denies suicidal, homicidal history. Physical/Sexual Abuse/Trauma History: Denies Additional Comment: Abilify 10mg poqd. Lexapro 10mg poqd. Buspiron 15mg po bid Mental Status Exam - Mental Status Exam Alert and Oriented to: Person Cognitive Function: Fair Mood: Anxious Patient Behavior: Cooperative Speech Pattern: Appropriate Voice Loudness: Mildly Soft/Quiet Thought Process: Goal Oriented Thought Disorder: Being Controlled Hallucinations: Denies Suicidal Ideation: Denies Homicidal Ideation: Denies Insight/Judgement: Fair Sleep: Difficulty falling asleep Appetite: Weight loss Muscle strength/Tone: Mild Hypotonicity Gait/Station: Shuffling Additional Comments: Abilify 10mg poqd. Lexapro 10mg poqd. Buspiron 15mg po bid Psychiatric Findings - Problem List ([place] 1, 2,3) (1) Weight loss Current Visit: Yes Status: Acute (2) Alcohol dependence with uncomplicated withdrawal Current Visit: Yes Status: Chronic (3) Anxiety disorder Current Visit: Yes Status: Chronic Qualifiers: Anxiety disorder type: unspecified anxiety disorder Qualified Code(s): F41.9 - Anxiety disorder, unspecified (4) Asthma Current Visit: Yes Status: Chronic Qualifiers: Asthma severity: unspecified severity Asthma persistence: unspecified Asthma complication type: uncomplicated Qualified Code(s): J45.909 - Unspecified asthma, uncomplicated (5) COPD (chronic obstructive pulmonary disease) Current Visit: Yes Status: Chronic Qualifiers: COPD type: chronic bronchitis Chronic bronchitis type: unspecified Qualified Code(s): J42 - Unspecified chronic bronchitis (6) Cannabis dependence, uncomplicated Current Visit: Yes Status: Chronic (7) Chronic back pain Current Visit: Yes Status: Chronic Qualifiers: Back pain location: low back pain Back pain laterality: unspecified Sciatica presence: unspecified whether sciatica present Qualified Code(s): M54.5 - Low back pain; G89.29 - Other chronic pain (8) Cocaine dependence Current Visit: Yes Status: Chronic Qualifiers: Substance use status: uncomplicated Qualified Code(s): F14.20 - Cocaine dependence, uncomplicated (9) Methadone maintenance therapy patient Current Visit: Yes Status: Chronic Comment: 90 MG pending verification (10) Nicotine dependence Current Visit: Yes Status: Chronic Qualifiers: Nicotine product type: cigarettes Substance use status: uncomplicated Qualified Code(s): F17.210 - Nicotine dependence, cigarettes, uncomplicated - Initial Treatment Plan Initial Treatment Plan: Abilify 10mg poqd. Lexapro 10mg poqd. Buspiron 15mg po bid
[2018-12-12] MEDS: diazePAM 5 MG TABLET PO PRN ×3 (08:36→17:33)
[2018-12-12] MEDS ORDERED: METHADONE HCL 10 MG TABLET PO ONE (08:41)
[2018-12-12] MEDS ORDERED: METHADONE HCL 40 MG DISPERSABLE TABLET ONE (09:21)
[2018-12-12] MEDS ORDERED: METHADONE HCL 10 MG TABLET ONE (09:22)
[2018-12-12] MEDS: ARIPiprazole 10 MG TABLET PO SCH (09:26)
[2018-12-12] MEDS: PRENATAL VITAMINS W/ FOLIC ACID TABLET (FP) PO SCH (09:26)
[2018-12-12] MEDS: ESCITALOPRAM OXALATE 10 MG TABLET (FP) PO SCH (09:26)
[2018-12-12] MEDS: NICOTINE 21 MG/24 HOURS TOPICAL PATCH TD SCH (09:26)
[2018-12-12] MEDS: NAPROXEN 500 MG TABLET (FP) PO SCH ×2 (09:26→21:51)
[2018-12-12] MEDS: TOLNAFTATE 1% CREAM 15 GM TUBE TP SCH ×2 (09:27→21:57)
[2018-12-12] MEDS ORDERED: METHADONE 80 MG, METHADONE 10 MG PO ONE (09:30)
[2018-12-12] MEDS ORDERED: busPIRone HCL 10 MG TABLET (FP) PO SCH (10:00)
[2018-12-12 10:53] LABS: HEMATOCRIT 39.1 % (35.4-49); HEMOGLOBIN 13.6 GM/dL (11.7-16.9); MCH 32.9 pg (25.7-33.7); MCHC 34.9 g/dl (32.0-35.9); MEAN CELL VOLUME 94.4 fl (80-96); MEAN PLT VOLUME 8.8 fl (7.5-11.1); PLATELET COUNT 255 K/MM3 (134-434); RBC 4.14 M/mm3 (4.00-5.60); RDW 13.2 % (11.9-15.9)
[2018-12-12 11:17] LABS: ALBUMIN 3.8 g/dl (3.4-5.0); ALK PHOS 123 U/L (45-117); ANION GAP 7 MMOL/L (8-16); BILIRUBIN,TOTAL 0.4 mg/dL (0.2-1); BLOOD UREA NITROGEN 16 mg/dL (7-18); CALCIUM 9.2 mg/dL (8.5-10.1); CHLORIDE 101 mmol/L (98-107); CO2 30 mmol/L (21-32); CREATININE 0.9 mg/dL (0.55-1.3); GLUCOSE,RANDOM 86 mg/dL (74-106); POTASSIUM 4.3 mmol/L (3.5-5.1); SGOT/AST 70 U/L (15-37); SGPT/ALT 43 U/L (13-61); SODIUM 138 mmol/L (136-145); TOT PROT 6.9 g/dl (6.4-8.2)
--- NOTE | 2018-12-12 11:50 | PN ---
S CIWA - CIWA Score Nausea/Vomitin-No Nausea/No Vomiting Muscle Tremors: 4-Moderate,w/Arms Extend Anxiety: 4-Mod. Anxious/Guarded Agitation: 4-Moderately Restless Paroxysmal Sweats: 3 Orientation: 0-Oriented Tacttile Disturbances: 0-None Auditory Disturbances: 0-None Visual Disturbances: 0-None Headache: 0-None Present CIWA-Ar Total Score: 15 [facility] Progress Note (SOAP) Subjective: agitation anxiety sweats body aches shakes irritable muscle spasm Objective: Vital Signs Temperature 97.7 F 12/12/18 09:18 Pulse Rate 76 12/12/18 09:18 Respiratory Rate 18 12/12/18 09:18 Blood Pressure 142/89 12/12/18 09:18 O2 Sat by Pulse Oximetry (%) Laboratory Tests 12/12/18 12/12/18 12/12/18 05:45 05:45 05:45 WBC 9.0 RBC 4.14 Hgb 13.6 Hct 39.1 MCV 94.4 MCH 32.9 MCHC 34.9 RDW 13.2 Plt Count 255 D MPV 8.8 Sodium 138 Potassium 4.3 Chloride 101 Carbon Dioxide 30 Anion Gap 7 L BUN 16 Creatinine 0.9 Creat Clearance w eGFR > 60 Random Glucose 86 Calcium 9.2 Total Bilirubin 0.4 AST 70 H ALT 43 Alkaline Phosphatase 123 H Total Protein 6.9 Albumin 3.8 RPR Titer Nonreactive aaox3 ambulating no acute distress Assessment: 12/12/18 11:49 withdrawal sx Plan: continue detox increase fluids flexiril prn
[2018-12-12] MEDS ORDERED: LIDOCAINE 5% TOPICAL PATCH TP ONE (14:45)
[2018-12-12] MEDS: BACLOFEN 10 MG TABLET (FP) PO SCH ×2 (14:51→21:51)
[2018-12-12] MEDS: THIAMINE HCL 100 MG TABLET (FP) PO SCH (21:51)
[2018-12-12] MEDS: LIDOCAINE PATCH REMOVAL MC SCH (21:57)
[2018-12-13] MEDS ORDERED: METHADONE HCL 40 MG DISPERSABLE TABLET ONE (05:02)
[2018-12-13] MEDS ORDERED: METHADONE HCL 10 MG TABLET ONE (05:02)
[2018-12-13] MEDS: METHADONE 80 MG, METHADONE 10 MG PO SCH (05:34)
[2018-12-13] MEDS: BACLOFEN 10 MG TABLET (FP) PO SCH ×3 (05:35→22:57)
[2018-12-13] MEDS: diazePAM 5 MG TABLET PO PRN ×3 (05:38→17:48)
[2018-12-13] MEDS ORDERED: METHADONE HCL 40 MG DISPERSABLE TABLET PO SCH (06:00)
[2018-12-13] MEDS: NAPROXEN 500 MG TABLET (FP) PO SCH ×2 (10:21→22:57)
[2018-12-13] MEDS: ARIPiprazole 10 MG TABLET PO SCH (10:21)
[2018-12-13] MEDS: diazePAM 5 MG TABLET PO SCH ×2 (10:21→22:57)
[2018-12-13] MEDS: ESCITALOPRAM OXALATE 10 MG TABLET (FP) PO SCH (10:21)
[2018-12-13] MEDS: PRENATAL VITAMINS W/ FOLIC ACID TABLET (FP) PO SCH (10:22)
[2018-12-13] MEDS: LIDOCAINE 5% TOPICAL PATCH TP SCH (10:23)
[2018-12-13] MEDS: NICOTINE 21 MG/24 HOURS TOPICAL PATCH TD SCH (10:23)
[2018-12-13] MEDS: TOLNAFTATE 1% CREAM 15 GM TUBE TP SCH ×2 (10:24→22:55)
[2018-12-13] MEDS ORDERED: TRIMETHOBENZAMIDE HCL 200MG/2ML INJ IM PRN (13:01)
--- NOTE | 2018-12-13 14:53 | PN ---
S CIWA - CIWA Score Nausea/Vomitin Muscle Tremors: None Anxiety: 4-Mod. Anxious/Guarded Agitation: 3 Paroxysmal Sweats: 3 Orientation: 0-Oriented Tacttile Disturbances: 2-Mild Itch/Numbness/Burn Auditory Disturbances: 0-None Visual Disturbances: 1-Very Mild Sensitivity Headache: 2-Mild CIWA-Ar Total Score: 18 [facility] Progress Note (SOAP) Subjective: Nausea, Diarrhea, Sweating, Anxious, Interrupted Sleep, Body Aches, H/A, Sweating. Objective: PATIENT A & O X 3, OBSERVED AMBULATING ON UNIT. IN NO ACUTE DISTRESS. 12/13/18 14:57 Vital Signs Temperature 96.3 F L 12/13/18 09:19 Pulse Rate 71 12/13/18 09:19 Respiratory Rate 18 12/13/18 09:19 Blood Pressure 123/85 12/13/18 09:19 O2 Sat by Pulse Oximetry (%) Laboratory Tests 12/12/18 12/12/18 12/12/18 05:45 05:45 05:45 WBC 9.0 RBC 4.14 Hgb 13.6 Hct 39.1 MCV 94.4 MCH 32.9 MCHC 34.9 RDW 13.2 Plt Count 255 D MPV 8.8 Sodium 138 Potassium 4.3 Chloride 101 Carbon Dioxide 30 Anion Gap 7 L BUN 16 Creatinine 0.9 Creat Clearance w eGFR > 60 Random Glucose 86 Calcium 9.2 Total Bilirubin 0.4 AST 70 H ALT 43 Alkaline Phosphatase 123 H Total Protein 6.9 Albumin 3.8 RPR Titer Nonreactive LABS NOTED. Assessment: 12/13/18 14:58 WITHDRAWAL SYMPTOMS. Plan: CONTINUE DETOX. INCREASE DAILY PO FLUID INTAKE. BACLOFEN PO FOR BODY ACHES / MUSCLE SPASMS. PRN TIGAN IM FOR NAUSEA. PRN IMMOIDUM PO FOR DIARRHEA.
[2018-12-13] MEDS: THIAMINE HCL 100 MG TABLET (FP) PO SCH (22:57)
[2018-12-13] MEDS: LIDOCAINE PATCH REMOVAL MC SCH (23:56)
[2018-12-14] MEDS ORDERED: METHADONE HCL 40 MG DISPERSABLE TABLET ONE (04:40)
[2018-12-14] MEDS ORDERED: METHADONE HCL 10 MG TABLET ONE (04:40)
[2018-12-14] MEDS: METHADONE 80 MG, METHADONE 10 MG PO SCH (05:47)
[2018-12-14] MEDS: BACLOFEN 10 MG TABLET (FP) PO SCH ×3 (05:47→22:04)
[2018-12-14] MEDS: diazePAM 5 MG TABLET PO PRN ×2 (05:50→12:55)
[2018-12-14] MEDS: NAPROXEN 500 MG TABLET (FP) PO SCH ×2 (10:08→22:04)
[2018-12-14] MEDS: ESCITALOPRAM OXALATE 10 MG TABLET (FP) PO SCH (10:08)
[2018-12-14] MEDS: NICOTINE 21 MG/24 HOURS TOPICAL PATCH TD SCH (10:08)
[2018-12-14] MEDS: ARIPiprazole 10 MG TABLET PO SCH (10:08)
[2018-12-14] MEDS: diazePAM 5 MG TABLET PO SCH ×2 (10:08→22:06)
[2018-12-14] MEDS: PRENATAL VITAMINS W/ FOLIC ACID TABLET (FP) PO SCH (10:08)
[2018-12-14] MEDS: TOLNAFTATE 1% CREAM 15 GM TUBE TP SCH ×2 (10:09→22:05)
--- NOTE | 2018-12-14 12:58 | PN ---
[facility] Progress Note (SOAP) Subjective: interrupted sleep, sweats, shakes, diarrhea Objective: 12/14/18 12:55 pt ambulating upset, Assessment: 12/14/18 12:56 Vital Signs Temperature 98.9 F 12/14/18 08:51 Pulse Rate 81 12/14/18 08:51 Respiratory Rate 18 12/14/18 08:51 Blood Pressure 112/71 12/14/18 08:51 O2 Sat by Pulse Oximetry (%) Laboratory Tests 12/12/18 12/12/18 12/12/18 05:45 05:45 05:45 WBC 9.0 RBC 4.14 Hgb 13.6 Hct 39.1 MCV 94.4 MCH 32.9 MCHC 34.9 RDW 13.2 Plt Count 255 D MPV 8.8 Sodium 138 Potassium 4.3 Chloride 101 Carbon Dioxide 30 Anion Gap 7 L BUN 16 Creatinine 0.9 Creat Clearance w eGFR > 60 Random Glucose 86 Calcium 9.2 Total Bilirubin 0.4 AST 70 H ALT 43 Alkaline Phosphatase 123 H Total Protein 6.9 Albumin 3.8 RPR Titer Nonreactive pt aox3 in nad ambulating withdrawal sx's 12/14/18 12:56 Plan: cont. detox increase fluids imodium prn d/c in am
[2018-12-14] MEDS: LIDOCAINE 5% TOPICAL PATCH TP SCH (14:30)
[2018-12-14] MEDS ORDERED: diazePAM 5 MG TABLET PO ONE (16:53)
--- NOTE | 2018-12-14 16:57 | PN ---
[facility] Progress Note Note: Called to see patient who was very agitated, pacing and yelling at staff. Patient w/ (+) sweating, tremors. Discussed current level of anxiety. Reviewed medication protocols and reasoning for same. Patient calmed and verbalized an understanding of future medication management of his withdrawal symptoms. Assessment: Protracted withdrawal symptoms. Plan: Valium 10 mg PO Once. Vistaril 50 mg PO Q4H prn anxiety, as ordered. Patient encouraged to increase water intake.
[2018-12-14] MEDS: THIAMINE HCL 100 MG TABLET (FP) PO SCH (22:04)
[2018-12-14] MEDS: LIDOCAINE PATCH REMOVAL MC SCH (23:13)
[2018-12-15] MEDS ORDERED: METHADONE HCL 10 MG TABLET ONE (05:55)
[2018-12-15] MEDS: BACLOFEN 10 MG TABLET (FP) PO SCH (05:55)
[2018-12-15] MEDS: METHADONE 80 MG, METHADONE 10 MG PO SCH (05:55)
[2018-12-15] MEDS ORDERED: METHADONE HCL 40 MG DISPERSABLE TABLET ONE (05:55)
[2018-12-15 06:35] VITALS: BP 126/76; PULSE 69; TEMP 97.7
[2018-12-15] MEDS ORDERED: diazePAM 5 MG TABLET PO SCH (10:00)
--- NOTE | 2018-12-15 15:49 | DS ---
[facility] Detox Discharge Summary Admission Date: 12/11/18 Discharge Date: 12/15/18 - History Present History: Alcohol Dependence, Cannabis Dependence Additional Comments: PT LEFT EARLIER DURING PREVIOUS SHIFT TO GET TO HIS MMTP PROGRAM PER NURSE BEFORE THIS VICE PRESIDENT OF COMMUNICATIONS COULD ENCOUNTER WITH PATIENT. Pertinent Past History: ASTHMA COPD [place] - Physical Exam Results Vital Signs: Vital Signs Temperature 97.7 F 12/15/18 06:00 Pulse Rate 69 12/15/18 06:00 Respiratory Rate 18 12/15/18 06:00 Blood Pressure 126/76 12/15/18 06:00 O2 Sat by Pulse Oximetry (%) Pertinent Admission Physical Exam Findings: WITHDRAWAL SX - Treatment Hospital Course: Detox Protocol Followed, Detoxed Safely, Responded well, Discharged Condition Good (PER NURSING NOTES) - Medication Discharge Medications: Ambulatory Orders Aripiprazole [Abilify -] 10 mg PO DAILY #30 tablet 06/01/17 Zolpidem Tartrate [Ambien] 10 mg PO HS 05/30/18 Albuterol Sulfate Inhaler - [Ventolin HFA Inhaler -] 2 inh PO Q4H PRN #1 inhaler 10/13/18 Aripiprazole [Abilify -] 10 mg PO DAILY #30 tablet 12/12/18 Buspirone HCl [Buspar -] 10 mg PO BID #60 tablet 12/12/18 Escitalopram Oxalate [Lexapro -] 10 mg PO DAILY #30 tablet 12/12/18 Methadone [Dolophine -] 90 mg PO DAILY 12/15/18 - Diagnosis (1) Alcohol dependence with uncomplicated withdrawal Status: Acute (2) Asthma Status: Chronic Qualifiers: Asthma severity: unspecified severity Asthma persistence: unspecified Asthma complication type: uncomplicated Qualified Code(s): J45.909 - Unspecified asthma, uncomplicated (3) COPD (chronic obstructive pulmonary disease) Status: Chronic Qualifiers: COPD type: chronic bronchitis Chronic bronchitis type: unspecified Qualified Code(s): J42 - Unspecified chronic bronchitis (4) Cannabis dependence, uncomplicated Status: Acute (5) Cocaine dependence Status: Acute Qualifiers: Substance use status: uncomplicated Qualified Code(s): F14.20 - Cocaine dependence, uncomplicated (6) Methadone maintenance therapy patient Status: Chronic (7) Nicotine dependence Status: Acute Qualifiers: Nicotine product type: cigarettes Substance use status: in withdrawal Qualified Code(s): F17.213 - Nicotine dependence, cigarettes, with withdrawal - AMA Did Patient Leave Against Medical Advice: No
== END 2018-12-15 07:23 | disposition home or self-care (01) | DRG 773 ==
LOC: YASAS 12:21 → Y6N 18:37
PROVIDERS: ADMIT Surgery; ATTEND Surgery
PROC: HZ2ZZZZ Detoxification Services for Substance Abuse Treatment (ICD-10-PCS; principal; 2018-12-11)
DX: F10.230 Alcohol dependence with withdrawal, uncomplicated (principal); F14.20 Cocaine dependence, uncomplicated; F12.20 Cannabis dependence, uncomplicated; F11.20 Opioid dependence, uncomplicated; F17.210 Nicotine dependence, cigarettes, uncomplicated; F41.9 Anxiety disorder, unspecified; I25.10 Atherosclerotic heart disease of native coronary artery without angina pectoris; I25.2 Old myocardial infarction; M54.5 Low back pain; G89.29 Other chronic pain; R63.4 Abnormal weight loss; Z68.30 Body mass index [BMI] 30.0-30.9, adult; Z86.19 Personal history of other infectious and parasitic diseases
CPT/HCPCS: 36415; 80053; 85027; 86593; 94640; J0475

== ENCOUNTER 2022-07-24 09:36 | Inpatient (IN) | payer OTHER ==
[2022-07-24 11:57] VITALS: BMI 19.5
[2022-07-24] MEDS ORDERED: NICOTINE 10 MG CARTRIDGE (INHALER) IH PRN (14:07)
[2022-07-24] MEDS ORDERED: MAG HYDROX/AL HYDROX/SIMETH 30 ML UNIT-DOSE CUP PO PRN (14:07)
[2022-07-24] MEDS ORDERED: ONDANSETRON *ODT* 4 MG TABLET SL PRN (14:07)
[2022-07-24] MEDS ORDERED: IBUPROFEN 400 MG TABLET (FP) PO PRN (14:07)
[2022-07-24] MEDS ORDERED: IBUPROFEN 600 MG TABLET (FP) PO PRN (14:07)
[2022-07-24] MEDS ORDERED: MAGNESIUM HYDROX 2400MG/30ML ORAL SUSPENSION 30 ML CUP PO PRN (14:07)
[2022-07-24] MEDS ORDERED: DICYCLOMINE HCL 10 MG CAPSULE PO PRN (14:07)
[2022-07-24] MEDS ORDERED: ACETAMINOPHEN 325 MG TABLET (FP) PO PRN ×2 (14:07)
[2022-07-24] MEDS ORDERED: BENZOCAINE/MENTHOL (CHLORASEPTIC ) LOZENGE MM PRN (14:07)
[2022-07-24] MEDS ORDERED: MAGNESIUM CITRATE 300 ML BOTTLE PO PRN (14:07)
[2022-07-24] MEDS ORDERED: NALOXONE HCL 0.4 MG/ML VIAL IM PRN (14:07)
[2022-07-24] MEDS ORDERED: BISMUTH SUBSALICYLATE 524 MG/30 ML PO PRN (14:07)
[2022-07-24] MEDS ORDERED: LOPERAMIDE HCL 2 MG CAPSULE PO PRN (14:07)
[2022-07-24] MEDS ORDERED: FLU VACC QS2022-23(6MOS UP)/PF 60 MCG/0.5 ML SYRINGE IM ONE (14:52)
[2022-07-24] MEDS ORDERED: diazePAM 5 MG TABLET ONE (15:43)
[2022-07-24] MEDS: diazePAM 5 MG TABLET PO PRN ×2 (15:48→20:42)
[2022-07-24] MEDS: diazePAM 5 MG TABLET PO SCH ×3 (17:18→22:48)
[2022-07-24] MEDS: hydrOXYzine PAMOATE 25 MG CAPSULE (FP) PO PRN ×2 (18:54→22:38)
[2022-07-24] MEDS ORDERED: MELATONIN 5 MG TABLETS PO SCH (22:00)
[2022-07-24] MEDS: THIAMINE HCL 100 MG TABLET (FP) PO SCH (22:38)
[2022-07-24] MEDS: METHOCARBAMOL 500 MG TABLET PO PRN (22:38)
[2022-07-25] MEDS: diazePAM 5 MG TABLET PO SCH ×4 (05:51→22:22)
[2022-07-25] MEDS ORDERED: methaDONE HCL 10 MG TABLET PO ONE (08:59)
[2022-07-25] MEDS ORDERED: ALBUTEROL SO4 HFA INHALER IH PRN (09:01)
[2022-07-25] MEDS ORDERED: methaDONE 80 MG, methaDONE 10 MG PO ONE (09:15)
[2022-07-25] MEDS ORDERED: FLU VACC QS2022-23(6MOS UP)/PF 60 MCG/0.5 ML SYRINGE IM ONE (10:00)
[2022-07-25] MEDS: PRENATAL VITAMINS W/ FOLIC ACID TABLET (FP) PO SCH (10:10)
[2022-07-25] MEDS: NICOTINE 14 MG/24 HOURS TOPICAL PATCH TD SCH (10:10)
[2022-07-25 10:21] LABS: HEMATOCRIT 43.1 % (35.4-49); HEMOGLOBIN 14.2 GM/dL (11.7-16.9); MCH 29.1 pg (25.7-33.7); MCHC 32.9 g/dl (32.0-35.9); MEAN CELL VOLUME 88.3 fl (80-96); MEAN PLT VOLUME 8.3 fl (7.5-11.1); PLATELET COUNT 227 10^3/uL (134-434); RBC 4.88 M/mm3 (4.00-5.60); RDW 15.2 % (11.9-15.9); WHITE BLOOD COUNT 6.2 K/mm3 (4.0-10.0)
[2022-07-25 10:42] LABS: ALBUMIN 3.4 g/dl (3.4-5.0); BLOOD UREA NITROGEN 15.6 mg/dL (7-18); CALCIUM 9.3 mg/dL (8.5-10.1)
[2022-07-25 10:46] LABS: CREATININE 0.7 mg/dL (0.55-1.3)
[2022-07-25 10:47] LABS: BILIRUBIN,TOTAL 0.5 mg/dL (0.2-1); TOT PROT 6.9 g/dl (6.4-8.2)
[2022-07-25] MEDS: ESCITALOPRAM OXALATE 10 MG TABLET PO SCH (11:44)
[2022-07-25] MEDS: busPIRone HCL 10 MG TABLET (FP) PO SCH ×2 (11:44→22:22)
[2022-07-25] MEDS: ARIPiprazole 10 MG TABLET PO SCH (11:44)
[2022-07-25] MEDS: diazePAM 5 MG TABLET PO PRN ×2 (13:07→19:38)
[2022-07-25] MEDS: SUVOREXANT 10 MG TABLET PO PRN (22:21)
[2022-07-25] MEDS: THIAMINE HCL 100 MG TABLET (FP) PO SCH (22:23)
[2022-07-26] MEDS: methaDONE 80 MG, methaDONE 10 MG PO SCH (05:57)
[2022-07-26] MEDS: diazePAM 5 MG TABLET PO SCH ×3 (05:58→22:30)
[2022-07-26] MEDS ORDERED: methaDONE HCL 10 MG TABLET PO SCH (06:00)
[2022-07-26] MEDS: ESCITALOPRAM OXALATE 10 MG TABLET PO SCH (10:05)
[2022-07-26] MEDS: PRENATAL VITAMINS W/ FOLIC ACID TABLET (FP) PO SCH (10:05)
[2022-07-26] MEDS: busPIRone HCL 10 MG TABLET (FP) PO SCH ×2 (10:05→22:31)
[2022-07-26] MEDS: ARIPiprazole 10 MG TABLET PO SCH (10:05)
[2022-07-26] MEDS: METHOCARBAMOL 500 MG TABLET PO PRN (10:05)
[2022-07-26] MEDS: diazePAM 5 MG TABLET PO PRN ×2 (10:06→17:51)
[2022-07-26] MEDS: NICOTINE 14 MG/24 HOURS TOPICAL PATCH TD SCH (10:07)
[2022-07-26] MEDS: SUVOREXANT 10 MG TABLET PO PRN (22:31)
[2022-07-26] MEDS: THIAMINE HCL 100 MG TABLET (FP) PO SCH (22:31)
[2022-07-27] MEDS: methaDONE 80 MG, methaDONE 10 MG PO SCH (05:49)
[2022-07-27] MEDS ORDERED: diazePAM 5 MG TABLET PO SCH (06:00)
[2022-07-27] MEDS: ESCITALOPRAM OXALATE 10 MG TABLET PO SCH (10:11)
[2022-07-27] MEDS: PRENATAL VITAMINS W/ FOLIC ACID TABLET (FP) PO SCH (10:11)
[2022-07-27] MEDS: ARIPiprazole 10 MG TABLET PO SCH (10:11)
[2022-07-27] MEDS: METHOCARBAMOL 500 MG TABLET PO PRN (10:11)
[2022-07-27] MEDS: busPIRone HCL 10 MG TABLET (FP) PO SCH ×2 (10:11→22:06)
[2022-07-27] MEDS: NICOTINE 14 MG/24 HOURS TOPICAL PATCH TD SCH (10:11)
[2022-07-27] MEDS: diazePAM 5 MG TABLET PO PRN (10:12)
[2022-07-27] MEDS: hydrOXYzine PAMOATE 25 MG CAPSULE (FP) PO PRN ×2 (14:09→17:32)
[2022-07-27] MEDS ORDERED: chlordiazePOXIDE HCL 10 MG CAPSULE PO ONE (18:00)
[2022-07-27] MEDS: SUVOREXANT 10 MG TABLET PO PRN (22:06)
[2022-07-27] MEDS: THIAMINE HCL 100 MG TABLET (FP) PO SCH (22:06)
[2022-07-28] MEDS: hydrOXYzine PAMOATE 25 MG CAPSULE (FP) PO PRN (03:57)
[2022-07-28] MEDS: METHOCARBAMOL 500 MG TABLET PO PRN (03:57)
[2022-07-28] MEDS: methaDONE 80 MG, methaDONE 10 MG PO SCH (05:13)
[2022-07-28] MEDS ORDERED: diazePAM 5 MG TABLET PO ONE (06:00)
[2022-07-28] MEDS ORDERED: chlordiazePOXIDE HCL 10 MG CAPSULE PO ONE (06:00)
[2022-07-28 09:51] VITALS: BP 110/78; PULSE 107; RESP 20; TEMP 98.1
== END 2022-07-28 08:29 | disposition home or self-care (01) | DRG 773 ==
LOC: YASAS 09:36 → Y6N 14:30
PROVIDERS: ADMIT Allergy & Immunology; ATTEND Surgery
PROC: HZ2ZZZZ Detoxification Services for Substance Abuse Treatment (ICD-10-PCS; principal; 2022-07-24)
DX: F10.230 Alcohol dependence with withdrawal, uncomplicated (principal); F11.20 Opioid dependence, uncomplicated; F13.20 Sedative, hypnotic or anxiolytic dependence, uncomplicated; F14.20 Cocaine dependence, uncomplicated; F17.210 Nicotine dependence, cigarettes, uncomplicated; F25.1 Schizoaffective disorder, depressive type; J45.20 Mild intermittent asthma, uncomplicated; R63.4 Abnormal weight loss; Z68.1 Body mass index [BMI] 19.9 or less, adult
CPT/HCPCS: 36415; 80053; 85027; 86780; C9803-CS; G0008; Q2036; U0003; U0005